=== PATIENT | male | born 1965 | race Caucasian/White ===

== ENCOUNTER 2021-05-30 04:51 | Emergency (ER) | payer OTHER, SELFPAY ==
--- NOTE | ~2021-05-30 | XR_ITS ---
EXAMINATION: XR CHEST CLINICAL INFORMATION: Productive cough COMPARISON: 04/04/2019 TECHNIQUE: Frontal view of the chest was obtained. FINDINGS: Normal symmetric lung volumes. No parenchymal consolidation. No pleural effusion. No pneumothorax. Cardiomediastinal silhouette and pulmonary vascularity are within normal limits. Aorta is atherosclerotic. No acute osseous abnormalities. XR/XR chest 1V IMPRESSION: No focal consolidation.
[2021-05-30 05:05] VITALS: BP 149/80; PULSE 95; RESP 20; TEMP 36.8; O2SAT 95; BMI 36.6
--- NOTE | 2021-05-30 06:29 | ED_ITS ---
HPI - SOB/Dyspnea General Chief Complaint: Dyspnea Stated Complaint: Asthma Time Seen by Provider: 05/30/21 05:47 Source: patient Mode of arrival: ambulatory Limitations: no limitations History of Present Illness HPI Narrative: 55-year-old male who presents emergency department for evaluation of shortness of breath and cough. Patient states he has been short of breath for 2 days. He has also had mild dyspnea on exertion. States has a cough which is productive of thick, green phlegm. He denied fever, chills, chest pain. He states that he is feeling fatigued knee does have diffuse myalgias. Denied loss of sense of taste or smell or diarrhea. The patient did get a COVID-19 vaccination with his 2nd vaccination given 1 month prior. He does not recall which brand a vaccination he received. Patient states that the does have asthma but does not have an albuterol inhaler. He continues to smoke 1/2 pack of cigarettes per day. He is in a methadone clinic for heroin use disorder, he denies any recent heroin use. Related Data Previous Rx's Medication Instructions Recorded albuterol sulfate 90 mcg/actuation 2 puff INHALATION Q4-6H PRN #8.5 g 05/30/21 aerosol inhaler azithromycin 250 mg tablet See Rx Instructions .ROUTE 05/30/21 (Zithromax Z-Santos) .COMPLEX #6 tab prednisone 20 mg tablet 60 mg PO DAILY 5 Days #15 tab 05/30/21 Allergies Allergy/AdvReac Type Severity Reaction Status Date / Time No Known Allergies Allergy Unverified 07/09/20 15:37 [No Known Allergies*] Review of Systems Review of Systems: Yes all other systems are reviewed and are negative [facility] Past Medical History [facility] Narrative: Past medical history: Asthma. Past surgical history: None. Social history: The patient smokes 1/2 pack of cigarettes per day times 20 years. He states that he occasionally drinks alcohol. The patient is currently in a methadone program for heroin use disorder. He cannot recall when he last used heroin. Social History Social History Alcohol intake: unknown Patient Tobacco Use Status: Tobacco use Unknown Use of substances other than those prescribed or required for medical reasons: No Advance Directives: No Advance Directives Information Provided: Yes Physical Exam Vital Signs: Vital Signs: Last Vital Signs Temp 98.3 F 05/30/21 05:05 Pulse 95 05/30/21 05:05 Resp 20 05/30/21 05:05 BP 149/80 H 05/30/21 05:05 Pulse Ox 95 05/30/21 05:05 Body Mass Index 36.6 Const: General: cooperative and no acute distress Orientation/consciousness: oriented to person and oriented to place Limitations: no limitations HENMT: Head: Yes normal to inspection, Yes normocephalic and Yes atraumatic Ears: external ears normal General nose exam: Normal external nose present Face and sinus: Yes normal facial exam Mouth: Normal oral and palatal mucosa present Throat: Yes posterior oropharynx normal Eyes: General: appearance normal, both eyes and all related structures Pupils: Equal, round and reactive pupils present Neck: Neck: Yes normal visual inspection, Yes no lymphadenopathy, Yes trachea midline and Yes supple Chest: Chest palpation & inspection: normal inspection of the chest and normal palpation of entire chest wall Resp: Effort & Inspection: normal respiratory effort and able to speak in complete sentences Auscultation: wheezes scattered wheezes Cardio: Rate: regular rate Rhythm: regular rhythm Heart sounds: S1 normal heart sound present, S2 normal heart sound present and no murmurs GI: Inspection: Yes normal to inspection Palpation (GI): Soft to palpation, nontender and no guarding Auscultation: normal bowel sounds : General: Yes no CVA tenderness Back/Spine/Pelvis: Back: no CVA tenderness Skin: General skin exam: no rashes or lesions noted Neuro: General: oriented to person and oriented to place Cranial nerves: Yes CN's II-XII intact bilaterally and Yes Equal, round and reactive pupils present Cognition (Neuro): normal cognition Motor exam (neuro): 5/5 motor strength present throughout Extrem: General: Yes normal to inspection Psych: Appearance: grossly normal Speech and movement: Normal speech and movement present Affect: normal affect Attitude: cooperative Thought process: Normal thought process present Thought content: Normal thought content present Course Course Course Narrative: 55-year-old male with history of asthma and tobacco use disorder who presents emergency department for evaluation of shortness of breath x2 days and a productive cough. Vital signs revealed slight elevation is blood pressure of 149/80 otherwise were unremarkable. Lung exam did reveal scattered wheezing. Chest x-ray was reviewed by me, I do not see any clear pneumonia or pneumothorax. The patient's COVID-19, influenza and RSV tests were negative. presentation is consistent with acute bronchitis. Given the fact the patient has a smoker and asthmatic, I will treat the patient with antibiotics. The patient was prescribed Zithromax Z-Santos. He is also given a prescription for prednisone 60 mg once a day for 5 days. Patient will insert also prescribed albuterol inhaler 2 puffs every 4 hours as needed for shortness of breath and wheezing. The patient was given verbal and printed instructions prior to discharge. The patient was advised to follow-up with his PCP in 2 days and to return to the emergency department if his symptoms get worse or if he develops any new symptoms that are concerning to him. MDM - SOB/Dyspnea Lab Data Labs: Lab Results 05/30/21 Range/Units 06:20 Coronavirus (PCR) NEGATIVE (Negative) Influenza Type A (PCR) NEGATIVE (Negative) Influenza Type B (PCR) NEGATIVE (Negative) RSV RNA Qual (PCR) NEGATIVE (Negative) Discharge Plan Discharge Clinical Impression: Bronchitis Asthma with exacerbation Qualifiers: Asthma severity: moderate Asthma persistence: persistent Qualified Code(s): J45.41 - Moderate persistent asthma with (acute) exacerbation Patient Disposition: Home, Self-Care Instructions: Acute Bronchitis (ED) Additional Instructions: Your chest x-ray was unremarkable. Your COVID-19, influenza and RSV tests were negative, this is reassuring. Your symptoms are consistent with bronchitis which is infection and inflammation of your breathing tubes. Use the albuterol inhaler 2 puffs every 4 hours as needed for wheezing and shortness of breath. Take prednisone 20 mg pills, 3 pills once a day for 5 days. Take Zithromax (azithromycin) Z-Santos as prescribed. Follow-up with your doctor in 2 days. Please return to the emergency department if your symptoms get worse or if you develop any symptoms that are concerning to you. Prescriptions: New albuterol sulfate 90 mcg/actuation HFA aerosol inhaler 2 puff inhalation Q4-6H PRN (Reason: shortness of breath or wheezing) Qty: 8.5 RF: 0 azithromycin [Zithromax Z-Santos] 250 mg tablet See Rx Instructions .ROUTE .COMPLEX Qty: 6 RF: 0 prednisone 20 mg tablet 60 mg PO DAILY 5 Days Qty: 15 RF: 0
[2021-05-30 07:03] LABS: Influenza A PCR NEGATIVE (Negative); Influenza B PCR NEGATIVE (Negative); Resp Syncy Virus RNA Qual PCR NEGATIVE (Negative); SARS COV2 PCR INHOUSE NEGATIVE (Negative)
== END 2021-05-30 09:58 | disposition home or self-care (01) ==
PROVIDERS: Emergency Provider Emergency Medicine Emergency Medical Services; PCP Nurse Practitioner Family
DX: J45.41 Moderate persistent asthma with (acute) exacerbation (principal); Z20.822 Contact with and (suspected) exposure to COVID-19; R06.02 Shortness of breath; F17.210 Nicotine dependence, cigarettes, uncomplicated; F11.20 Opioid dependence, uncomplicated
CPT/HCPCS: 0241U; 36415; 71045; 99283; 99284

== ENCOUNTER 2021-10-11 03:00 | Emergency (ER) | payer MEDICARE, MEDICAID, SELFPAY ==
--- NOTE | ~2021-10-11 | XR_ITS ---
EXAMINATION: XR CHEST CLINICAL INFORMATION: Shortness of breath COMPARISON: 05/30/2021 TECHNIQUE: 2 views of the chest were obtained. FINDINGS: The lungs are well expanded. There is no focal consolidation, edema, or effusion. No pneumothorax. The cardiomediastinal silhouette is within normal limits. No acute osseous abnormality. Bilateral nipple shadows are noted. XR/XR chest 2V IMPRESSION: Clear lungs.
[2021-10-11 03:18] VITALS: BP 134/85; PULSE 93; RESP 20; TEMP 36.3; O2SAT 97; BMI 23.6
--- NOTE | 2021-10-11 07:16 | ED_ITS ---
HPI - URI/Sore Throat General Chief Complaint: Upper Respiratory Symptoms Stated Complaint: SoB, trouble breathing Time Seen by Provider: 10/11/21 07:16 Source: patient Mode of arrival: ambulatory Limitations: no limitations History of Present Illness MD elicited complaint: cough Pertinent past history: asthma Onset (ago): week(s) (1) Consistency: intermittent Severity: moderate Description of mucous: yellow Able to tolerate fluids by mouth: Yes Exacerbating factors: nothing Associated symptoms: cough Treatments prior to arrival: none Related Data Previous Rx's Medication Instructions Recorded albuterol sulfate 90 mcg/actuation 2 puff INHALATION Q4-6H PRN #8.5 g 05/30/21 aerosol inhaler azithromycin 250 mg tablet See Rx Instructions .ROUTE 05/30/21 (Zithromax Z-Santos) .COMPLEX #6 tab prednisone 20 mg tablet 60 mg PO DAILY 5 Days #15 tab 05/30/21 albuterol sulfate 90 mcg/actuation 1 inh INHALATION QID PRN #8.5 g 10/11/21 aerosol inhaler (Ventolin HFA) azithromycin 250 mg tablet 250 mg PO DAILY 4 Days #4 tab 10/11/21 prednisone 20 mg tablet 60 mg PO DAILY 4 Days #12 tab 10/11/21 Allergies Allergy/AdvReac Type Severity Reaction Status Date / Time No Known Allergies Allergy Unverified 07/09/20 15:37 [No Known Allergies*] Review of Systems Review of Systems: Constitutional : No Fever, No Chills ENT/Mouth : No Hoarseness, No sore throat, No Rhinorrhea Eyes: No Redness, No Discharge, No Vision Changes Cardiovascular : No Chest Pain, positive SOB, no Dyspnea on Exertion, No Edema Respiratory : positive Cough, pos Sputum, positive Wheezing, Gastrointestinal : No Nausea, No Vomiting, No Diarrhea, No abdominal Pain Genitourinary : No Dysuria, No Hematuria Musculoskeletal : No joint pain, No Myalgias Skin : No rash Neuro : No Weakness, No Numbness, No Headache Psych : No anxiety, depression Heme/Lymph: No Bruising, No Bleeding Endocrine : No Polyuria, No Polydipsia All other systems reviewed and are negative REPLACED BY [facility] Past Medical History Attestation statement: The following information was validated with the patient. Medical History Asthma Social History Social History Alcohol intake: unknown Patient Tobacco Use Status: Current everyday Tobacco user Advance Directives: No Advance Directives Information Provided: Yes Physical Exam Vital Signs: Vital Signs: Last Vital Signs Temp 97.3 F 10/11/21 03:18 Pulse 93 10/11/21 07:42 Resp 14 10/11/21 07:42 BP 134/85 10/11/21 03:18 Pulse Ox 97 10/11/21 03:18 BMI result Body Mass Index 23.6 Appearance: Alert. Oriented X3. No acute distress. Eyes: Pupils equal, round and reactive to light. ENT: Pharynx normal. Neck: Normal inspection. Neck supple. CVS: Normal heart rate and rhythm. Pulses normal. Respiratory: No respiratory distress. Breath sounds diffuse mild end exp wheezes throughout Abdomen: Soft and nontender. Skin: Skin warm and dry. Normal skin color. Normal skin turgor. Extremities: No lower extremity edema. No calf ttp Neuro: Oriented X 3. No motor deficit. No sensory deficit. Course Course Course Narrative: feels bettery stable for DC, easily woken has INH in his hand MDM - URI/Sore Throat MDM Narrative Medical decision making narrative: 56 yo male with asthma and smoker reports productive cough x 1 week - he is not vaccinated at this time CXR and COVID swab ordered. He does not have inhaler either. Will obtain COVID swab, CXR, order INH steroids and start on azithromycin for bronchitis. Dispo per results and findings. Lab Data Labs: Lab Results 10/11/21 Range/Units 07:40 COVID-19 ([facility]) Negative (Negative) COVID-19 Clin Com See Note Discharge Plan Discharge Clinical Impression: Bronchitis Patient Disposition: Home, Self-Care Instructions: Acute Bronchitis (ED) Additional Instructions: return to ED for any worsening symptoms or concerns NEGATIVE COVID Prescriptions: New prednisone 20 mg tablet 60 mg PO DAILY 4 Days Qty: 12 RF: 0 albuterol sulfate [Ventolin HFA] 90 mcg/actuation HFA aerosol inhaler 1 inh inhalation QID PRN (Reason: shortness of breath or wheezing) Qty: 8.5 RF: 1 azithromycin 250 mg tablet 250 mg PO DAILY 4 Days Qty: 4 RF: 0 No Action albuterol sulfate 90 mcg/actuation HFA aerosol inhaler 2 puff inhalation Q4-6H PRN (Reason: shortness of breath or wheezing) Qty: 8.5 RF: 0 azithromycin [Zithromax Z-Santos] 250 mg tablet See Rx Instructions .ROUTE .COMPLEX Qty: 6 RF: 0 prednisone 20 mg tablet 60 mg PO DAILY 5 Days Qty: 15 RF: 0 Referrals: Physician,Unknown J [Primary Care Provider] - 2 days (if not better) Stand Alone Forms: Work/School Release
[2021-10-11] MEDS: Albuterol Sulfate 90 MCG 8 GM INHALER 2 PUFF INHALE (07:39)
[2021-10-11] MEDS: predniSONE 20 MG TABLET 60 MG PO (07:41)
[2021-10-11] MEDS: Azithromycin 500 MG TABLET PO (07:41)
[2021-10-11 07:42] VITALS: PULSE 93; RESP 14; O2SAT 97
[2021-10-11 08:16] LABS: COVID-19 Test Negative (Negative); IDNOW Serial# 08D9AD1C
== END 2021-10-11 08:28 | disposition home or self-care (01) ==
PROVIDERS: Emergency Provider Emergency Medicine
DX: J40 Bronchitis, not specified as acute or chronic (principal); Z20.822 Contact with and (suspected) exposure to COVID-19
CPT/HCPCS: 36415; 71046; 87635; 94640; 99283; 99284

== ENCOUNTER 2023-03-16 11:59 | Outpatient (RCR) | payer MEDICARE, MEDICAID, SELFPAY | END 2023-05-26 14:11 | disposition home or self-care (01) | LOC: HO.WCC 11:59 | PROVIDERS: PCP Nurse Practitioner Family; Visit Provider Surgery | DX: Z09 Encounter for follow-up examination after completed treatment for conditions other than malignant neoplasm (principal); I87.302 Chronic venous hypertension (idiopathic) without complications of left lower extremity; I73.89 Other specified peripheral vascular diseases; Z87.2 Personal history of diseases of the skin and subcutaneous tissue | CPT/HCPCS: 11042; 11043; 99212 ==

== ENCOUNTER 2024-01-11 11:09 | Emergency (ER) | payer OTHER, SELFPAY ==
--- NOTE | ~2024-01-11 | XR_ITS ---
EXAMINATION: XR CHEST CLINICAL INFORMATION: Coughing up blood COMPARISON: Prior chest September 2021. TECHNIQUE: Frontal view of the chest was obtained. FINDINGS: There is a 2 mm rounded nodular density at the peripheral aspect of the lower lung which is unchanged dating back to 2019. Lungs otherwise clear. Cardiomediastinal silhouette normal. Bone and soft tissues unremarkable. XR/XR chest 1V IMPRESSION: 1. No acute disease. 2. Stable 2 mm nodular density in the lower lung unchanged dating back to 2019 compatible with a benign nodule, possibly granuloma.
[2024-01-11 11:24] VITALS: BP 118/69; PULSE 77; RESP 17; TEMP 36.7; O2SAT 96; BMI 29.0
--- NOTE | 2024-01-11 11:25 | ED.GENADULT ---
HPI - General Adult General Chief complaint: General Medical Stated complaint: vomiting Time Seen by Provider: 01/11/24 12:56 Source: patient Mode of arrival: ambulatory Limitations: no limitations History of Present Illness HPI narrative: This is a 58-year-old male presenting with fatigue, malaise, wheezing, cough for the past few days, spit up blood this morning which made him nervous and prompted him to come in today. He reports it was just blood-tinged sputum, no blood clots, now large amount of blood, it was not hematemesis it was blood in sputum. Patient reports he is slightly short of breath from the coughing. Reports associated fatigue, malaise and myalgias. No chest pain, nausea, vomiting, abdominal pain, blood in stool, diarrhea, urinary changes, headache, vision changes, dizziness or weakness. Related Data Previous Rx's Medication Instructions Recorded albuterol sulfate 90 mcg/actuation 2 puff inhalation Q4-6H PRN 05/30/21 aerosol inhaler shortness of breath or wheezing #8.5 grams azithromycin 250 mg tablet See Rx Instructions PO .COMPLEX #6 05/30/21 (Zithromax Z-Santos) tabs prednisone 20 mg tablet 60 mg (3 x 20 mg) PO DAILY 5 days 05/30/21 #15 tabs albuterol sulfate 90 mcg/actuation 1 inh inhalation QID PRN shortness 10/11/21 aerosol inhaler (Ventolin HFA) of breath or wheezing #8.5 grams azithromycin 250 mg tablet 250 mg PO DAILY 4 days #4 tabs 10/11/21 prednisone 20 mg tablet 60 mg (3 x 20 mg) PO DAILY 4 days 10/11/21 #12 tabs acetaminophen 325 mg capsule 325 mg PO Q4H PRN pain #30 caps 01/11/24 (Tylenol) albuterol sulfate 90 mcg/actuation 2 inh inhalation Q4-6H PRN 01/11/24 breath activated powder inhaler shortness of breath or wheezing #1 ea prednisone 20 mg tablet 40 mg (2 x 20 mg) PO DAILY 5 days 01/11/24 #10 tabs Allergies Allergy/AdvReac Type Severity Reaction Status Date / Time No Known Allergies Allergy Verified 01/11/24 11:24 [No Known Allergies*] Review of Systems Review of Systems: Yes all other systems are reviewed and are negative PMFSH Past Medical History Attestation statement: The following information was validated with the patient. Source: old records reviewed and nursing notes reviewed Medical History Asthma Social History Social History Alcohol intake: unknown Patient Tobacco Use Status: Current everyday Tobacco user Smoked in Last 30 Days: Yes Use of substances other than those prescribed or required for medical reasons: No Advance Directives: No Physical Exam ED Vital Signs: Vital Signs - 24 hr 01/11/24 11:24 01/11/24 13:01 Temperature 98.0 F 98.1 F Pulse Rate 77 88 Respiratory Rate 17 18 Blood Pressure 118/69 126/70 Pulse Oximetry 96 97 Oxygen Delivery Method Room Air Room Air BMI result Body Mass Index 29.0 vss Appearance: Alert.? Oriented X3.? No acute distress.? Head: Normocephalic, atraumatic, no step-offs or deformities Eyes: Pupils equal, round and reactive to light.? ENT: Pharynx normal.? Neck: Normal inspection.? Neck supple.? CVS: Normal heart rate and rhythm.? Pulses normal.? Respiratory: No respiratory distress.? Breath sounds with mild expiratory wheezing.? Abdomen: Soft and nontender.? Skin: Skin warm and dry.? Normal skin color.? Normal skin turgor.? Extremities: No lower extremity edema.? No calf ttp. 5/5 strength to bilateral upper and lower extremities Neuro: Oriented X 3.? No motor deficit.? No sensory deficit. CN 2-12 intact Course Course Course Narrative: This is an RME: Additional HPI, ROS, PE not included below will be deferred to primary provider. 58 yo m hx asthma presents w/ blood tinged sputum since this am he reports hes intermittently coughing also reports sore throat Plan- labs, viral test, cxr Reevaluation(s) Reevaluation #1: CBC unremarkable. Normocytic baseline anemia. Chemistry no acute findings requiring intervention. Normal coags. trop CXR pending Time: 12:50 Reevaluation #2: Covid + Time: 12:59 Reevaluation #3: Troponin negative, chest x-ray unremarkable. Medical Decision Making Medical Decision Making MDM Narrative: 1257 58 yo m hx asthma presents w/ blood tinged sputum since this am he reports hes intermittently coughing also reports sore throat, fatigue, malaise and myalgias PE mild b/l expiratory wheezing Blood-tinged sputum likely secondary to cough/bronchitis versus viral illness. Unlikely upper GI bleed. Unlikely acute blood loss anemia no signs of hemodynamic instability. Will rule out flu COVID RSV. Unlikely pneumonia, PE, ACS. Plan at this time basic labs, coags, x-ray, viral testing Differential Diagnosis Differential Diagnoses: The differential diagnosis associated with the presentation includes Blood-tinged sputum likely secondary to cough/bronchitis versus viral illness. Unlikely upper GI bleed. Unlikely acute blood loss anemia no signs of hemodynamic instability. Will rule out flu COVID RSV. Unlikely pneumonia, PE, ACS. Admission/Observation Consideration of admission/observation: Escalation of care including admission/observation considered Unlikely Lab Data MDM Lab Attestation statement: I reviewed the patient's lab results. 01/11/24 11:36 01/11/24 11:36 Labs: Lab Results 01/11/24 Range/Units 11:36 WBC 6.4 (4.8-10.8) X10*3/uL RBC 4.30 L (4.60-5.80) X10*6/uL Hgb 12.8 L (14.0-18.0) g/dl Hct 38.2 L (42.0-52.0) % MCV 88.8 (80.0-98.0) fL MCH 29.8 (27.0-33.0) pg MCHC 33.5 (31.0-36.0) g/dl RDW 12.7 (11.0-16.0) % Plt Count 216 (160-400) X10*3/uL MPV 9.3 L (9.4-12.4) fL Immature Gran % (Auto) 0.5 H (0.0-0.4) % Neut % (Auto) 59.4 (45-73) % Lymph % (Auto) 27.9 (20-40) % [place] % (Auto) 7.5 (2-11) % Eos % (Auto) 4.2 H (0-4) % Baso % (Auto) 0.5 (0-2) % Lymph # (Auto) 1.8 (1.2-4.9) X10*3/uL [place] # (Auto) 0.5 (0.1-1.2) X10*3/uL Eos # (Auto) 0.3 (0.0-0.4) X10*3/uL Baso # (Auto) 0.0 (0.0-0.2) X10*3/uL Abs Immat Gran (auto) 0.03 (0.00-0.03) X10*3/uL Absolute Neuts (auto) 3.8 (2.0-8.3) x10*3/uL Absolute Nucleated RBC 0.000 (0.0-0.012) X10*3/uL Nucleated RBC % (auto) 0.0 (0.0-0.2) /100WBC PT 10.5 L (11.1-13.3) SEC INR 0.9 (0.9-1.1) Sodium 141 (135-145) mmol/L Potassium 4.3 (3.3-5.1) mmol/L Chloride 105 (96-108) mmol/L Carbon Dioxide 29 (22-29) mmol/L Anion Gap 11 L (12-20) BUN 16 (9-16) mg/dL Creatinine 0.82 (0.5-1.4) mg/dL Estim Creat Clear Calc 96.2 Estimated GFR > 60 Random Glucose 95 (60-115) mg/dL Calcium 9.3 (8.4-10.2) mg/dL Total Bilirubin 0.2 (0.0-1.0) mg/dL AST 26 (5-37) U/L ALT 29 (0-40) U/L Alkaline Phosphatase 86 (39-117) U/L Troponin I High Sens < 2.7 (<3.5-35.0) ng/L Total Protein 7.5 (6.5-8.0) g/dL Albumin 4.1 (3.5-5.0) g/dL Influenza Type A (PCR) NEGATIVE (Negative) Influenza Type B (PCR) NEGATIVE (Negative) RSV RNA Qual (PCR) NEGATIVE (Negative) SARS-CoV-2 RNA (RT-PCR) POSITIVE A (Negative) S. pyogenes GrpA [place] Negative (Negative) Independent Interpretation I performed an independent interpretation of an: Plain X-Ray Radiology Impression Discussion of test interpretation with radiology: I have reviewed the radiologist's reading. Prescription Management I considered prescription management with: Other (tylenol ) Chronic Conditions Patient?s care impacted by: Other (obesity ) Critical Care Time Critical Care Time Critical Care Time: No Discharge Plan Discharge Clinical Impression: COVID-19, Blood-tinged sputum Patient Disposition: Home, Self-Care Instructions: COVID-19 (Coronavirus Disease 2019) (ED) Additional Instructions: Take your medications as prescribed. If you were prescribed antibiotics today, it is important that you take your medication to their entirety, do not skip any doses, do not finish them early. Today you tested positive for COVID-19. Take Ibuprofen or Tylenol as needed for fevers or body aches. Quarantine for 5 days and ensure you wear a mask. After 5 days you should wear a mask for 5 days after that. Practice social distancing and good hand hygiene. Drink plenty of fluids. Follow-up with your primary care provider this week. Return to the emergency department with new or worsening symptoms. In case of emergency call 911 You can purchase a pulse oximeter from your local pharmacy or grocery store, and monitor your oxygen saturation if it goes below 94% you should return to the emergency department for further evaluation. XR/XR chest 1V IMPRESSION: 1. No acute disease. 2. Stable 2 mm nodular density in the lower lung unchanged dating back to 2019 compatible with a benign nodule, possibly granuloma. Prescriptions: New acetaminophen [Tylenol] 325 mg capsule 325 mg PO Q4H PRN (Reason: pain) Qty: 30 0RF prednisone 20 mg tablet 40 mg PO DAILY 5 Days Qty: 10 0RF albuterol sulfate 90 mcg/actuation aerosol powdr breath activated 2 inh inhalation Q4-6H PRN (Reason: shortness of breath or wheezing) Qty: 1 0RF No Action albuterol sulfate 90 mcg/actuation HFA aerosol inhaler 2 puff inhalation Q4-6H PRN (Reason: shortness of breath or wheezing) Qty: 8.5 0RF azithromycin [Zithromax Z-Santos] 250 mg tablet See Rx Instructions .ROUTE .COMPLEX Qty: 6 0RF Rx Instructions: take 500 mg today (day 1), then 250 mg for 4 days (days 2-5) prednisone 20 mg tablet 60 mg PO DAILY 5 Days Qty: 15 0RF prednisone 20 mg tablet 60 mg PO DAILY 4 Days Qty: 12 0RF albuterol sulfate [Ventolin HFA] 90 mcg/actuation HFA aerosol inhaler 1 inh inhalation QID PRN (Reason: shortness of breath or wheezing) Qty: 8.5 1RF azithromycin 250 mg tablet 250 mg PO DAILY 4 Days Qty: 4 0RF Rx Instructions: start on day 2 of therapy Referrals: Flor Rowe [employer] [Primary Care Provider] - 2 days Stand Alone Forms: Work/School Release
[2024-01-11 11:45] LABS: MANUAL DIFF FLAG NO
[2024-01-11 11:51] LABS: Basophils Percent Auto 0.5 % (0-2); Eosinophils Absolute Auto 0.3 X10*3/uL (0.0-0.4); Eosinophils Percent Auto 4.2 % (0-4); Hematocrit 38.2 % (42.0-52.0); Hemoglobin 12.8 g/dl (14.0-18.0); Imm Gran Abs Auto 0.03 X10*3/uL (0.00-0.03); Imm Gran Pct Auto 0.5 % (0.0-0.4); Lymphocytes Absolute Auto 1.8 X10*3/uL (1.2-4.9); Lymphocytes Percent Auto 27.9 % (20-40); Mean Corpuscular HGB Conc 33.5 g/dl (31.0-36.0); Mean Corpuscular Hemoglobin 29.8 pg (27.0-33.0); Mean Corpuscular Volume 88.8 fL (80.0-98.0); Mean Platelet Volume 9.3 fL (9.4-12.4); Monocytes Absolute Auto 0.5 X10*3/uL (0.1-1.2); Monocytes Percent Auto 7.5 % (2-11); Neutrophils Absolute Auto 3.8 x10*3/uL (2.0-8.3); Neutrophils Percent Auto 59.4 % (45-73); Platelet Count 216 X10*3/uL (160-400); Red Cell Distribution Width 12.7 % (11.0-16.0); White Blood Count 6.4 X10*3/uL (4.8-10.8)
[2024-01-11 11:58] LABS: INTERNATIONAL NORM RATIO 0.9 (0.9-1.1); Prothrombin Time 10.5 SEC (11.1-13.3)
[2024-01-11 11:59] LABS: IDNOW Serial# 08D9AD1C; Strep A Nucleic Acid Negative (Negative)
[2024-01-11 12:02] LABS: Alanine Aminotransferase 29 U/L (0-40); Albumin Level 4.1 g/dL (3.5-5.0); Alkaline Phosphatase 86 U/L (39-117); Anion Gap 11 (12-20); Aspartate Amino Transferase 26 U/L (5-37); Bilirubin Total 0.2 mg/dL (0.0-1.0); Blood Urea Nitrogen 16 mg/dL (9-16); Calcium 9.3 mg/dL (8.4-10.2); Carbon Dioxide 29 mmol/L (22-29); Chloride 105 mmol/L (96-108); Creatinine Clr Calc Pharmacy 96.2; Estimated Glomerular Filt Rate > 60; Glucose Random 95 mg/dL (60-115); Potassium 4.3 mmol/L (3.3-5.1); Sodium 141 mmol/L (135-145); Total Protein 7.5 g/dL (6.5-8.0)
[2024-01-11 12:27] LABS: Influenza A PCR NEGATIVE (Negative); Influenza B PCR NEGATIVE (Negative); Resp Syncy Virus RNA Qual PCR NEGATIVE (Negative); SARS COV2 PCR INHOUSE POSITIVE (Negative)
[2024-01-11 13:01] VITALS: BP 126/70; PULSE 88; RESP 18; TEMP 36.7; O2SAT 97
[2024-01-11 13:48] LABS: Troponin-I High Sensitivity < 2.7 ng/L (<3.5-35.0)
== END 2024-01-12 20:33 | disposition home or self-care (01) ==
PROVIDERS: Physician Assistant; Emergency Provider Emergency Medicine; PCP Nurse Practitioner Family
DX: U07.1 COVID-19 (principal); R11.10 Vomiting, unspecified; R05.9 Cough, unspecified; Z79.899 Other long term (current) drug therapy
CPT/HCPCS: 0241U; 36415; 71045; 80053; 84484; 85025; 85610; 87651; 99283; 99284

== ENCOUNTER 2024-02-11 08:58 | Emergency (ER) | payer OTHER, SELFPAY ==
--- NOTE | ~2024-02-11 | XR_ITS ---
EXAMINATION: XR chest 2V CLINICAL INFORMATION: Reason for Exam SOB, repeat CXR w/ nipple markers COMPARISON: Prior chest x-ray same day earlier. TECHNIQUE: XR chest 2V, 2 Views Lungs and [place]: Both lungs are clear. Density projecting over the left hemithorax correlate with nipple marker. Nipple shadow. Pleura: Normal. Costophrenic angles are sharp. No pneumothorax. Heart: The heart is normal in size. Mediastinum: The mediastinum is within normal limits.. Bones: Skeletal structures included are normal for patient's age. XR/XR chest 2V IMPRESSION: 1. No radiographic evidence of acute cardiopulmonary disease. 2. Density projecting over the left hemithorax correlate with nipple marker, nipple shadow..
--- NOTE | ~2024-02-11 | XR_ITS ---
EXAMINATION: XR chest 2V CLINICAL INFORMATION: Reason for Exam dyspnea COMPARISON: No prior chest x-ray available in our system for comparison at the time of this dictation. TECHNIQUE: XR chest 2V, 2 Views Lungs and [place]: Small round density projecting over the left lower lobe possibly lung nodule versus nipple shadow. Lungs otherwise are clear. Pleura: Normal. Costophrenic angles are sharp. No pneumothorax. Heart: The heart is normal in size. Mediastinum: The mediastinum is within normal limits.. Bones: Skeletal structures included are normal for patient's age. XR/XR chest 2V IMPRESSION: Small round density projecting over the left lower lobe could be a lung nodule versus nipple shadow. Consider correlation with follow-up chest x-ray with nipple markers.
[2024-02-11 09:00] VITALS: BP 143/86; PULSE 96; RESP 17; TEMP 36.6; O2SAT 98; BMI 31.6
--- NOTE | 2024-02-11 09:24 | ED_ITS ---
HPI - URI/Sore Throat General Chief Complaint: Upper Respiratory Symptoms Stated Complaint: Diff breathing Time Seen by Provider: 02/11/24 09:10 Related Data Previous Rx's ?Medication ?Instructions ?Recorded albuterol sulfate 90 mcg/actuation 2 puff inhalation Q4-6H PRN 05/30/21 aerosol inhaler shortness of breath or wheezing #8.5 grams azithromycin 250 mg tablet See Rx Instructions PO .COMPLEX #6 05/30/21 (Zithromax Z-Santos) tabs prednisone 20 mg tablet 60 mg (3 x 20 mg) PO DAILY 5 days 05/30/21 #15 tabs albuterol sulfate 90 mcg/actuation 1 inh inhalation QID PRN shortness 10/11/21 aerosol inhaler (Ventolin HFA) of breath or wheezing #8.5 grams azithromycin 250 mg tablet 250 mg PO DAILY 4 days #4 tabs 10/11/21 prednisone 20 mg tablet 60 mg (3 x 20 mg) PO DAILY 4 days 10/11/21 #12 tabs acetaminophen 325 mg capsule 325 mg PO Q4H PRN pain #30 caps 01/11/24 (Tylenol) albuterol sulfate 90 mcg/actuation 2 inh inhalation Q4-6H PRN 01/11/24 breath activated powder inhaler shortness of breath or wheezing #1 ea prednisone 20 mg tablet 40 mg (2 x 20 mg) PO DAILY 5 days 01/11/24 #10 tabs Allergies Allergy/AdvReac Type Severity Reaction Status Date / Time No Known Allergies Allergy Verified 02/11/24 09:01 [No Known Allergies*] PMFSH Past Medical History Medical History Asthma Social History Social History Alcohol intake: unknown Patient Tobacco Use Status: Current everyday Tobacco user Advance Directives: No Advance Directives Information Provided: No Physical Exam 2 Vital Signs: Vital Signs: Last Vital Signs Temp 98 F 02/11/24 09:00 Pulse 96 02/11/24 09:00 Resp 17 02/11/24 09:00 BP 143/86 H 02/11/24 09:00 Pulse Ox 98 02/11/24 09:00 O2 Del Method Room Air 02/11/24 09:00 BMI result Body Mass Index 31.6 Medications Administered Discontinued Medications Generic Name Dose Route Start Last Admin Trade Name Dayan PRN Reason Stop Dose Admin Dexamethasone Sodium Phosphate 10 mg 02/11/24 10:01 02/11/24 10:07 Dexamethasone Sod Phosphate 10 Mg/Ml Vial IVPUSH 02/11/24 10:02 10 mg ONCE ONE Administration Medical Decision Making Lab Data 02/11/24 09:31 02/11/24 09:31 Labs: Lab Results 02/11/24 02/11/24 Range/Units 09:14 09:31 WBC 8.1 (4.8-10.8) X10*3/uL RBC 4.43 L (4.60-5.80) X10*6/uL Hgb 13.2 L (14.0-18.0) g/dl Hct 39.6 L (42.0-52.0) % MCV 89.4 (80.0-98.0) fL MCH 29.8 (27.0-33.0) pg MCHC 33.3 (31.0-36.0) g/dl RDW 13.2 (11.0-16.0) % Plt Count 261 (160-400) X10*3/uL MPV 9.2 L (9.4-12.4) fL Immature Gran % (Auto) 0.2 (0.0-0.4) % Neut % (Auto) 69.2 (45-73) % Lymph % (Auto) 21.7 (20-40) % [place] % (Auto) 6.7 (2-11) % Eos % (Auto) 2.0 (0-4) % Baso % (Auto) 0.2 (0-2) % Lymph # (Auto) 1.8 (1.2-4.9) X10*3/uL [place] # (Auto) 0.5 (0.1-1.2) X10*3/uL Eos # (Auto) 0.2 (0.0-0.4) X10*3/uL Baso # (Auto) 0.0 (0.0-0.2) X10*3/uL Abs Immat Gran (auto) 0.02 (0.00-0.03) X10*3/uL Absolute Neuts (auto) 5.6 (2.0-8.3) x10*3/uL Absolute Nucleated RBC 0.000 (0.0-0.012) X10*3/uL Nucleated RBC % (auto) 0.0 (0.0-0.2) /100WBC Influenza Type A (PCR) NEGATIVE (Negative) Influenza Type B (PCR) NEGATIVE (Negative) RSV RNA Qual (PCR) NEGATIVE (Negative) SARS-CoV-2 RNA (RT-PCR) NEGATIVE (Negative) Discharge Plan Discharge Prescriptions: No Action albuterol sulfate 90 mcg/actuation HFA aerosol inhaler 2 puff inhalation Q4-6H PRN (Reason: shortness of breath or wheezing) Qty: 8.5 0RF azithromycin [Zithromax Z-Santos] 250 mg tablet See Rx Instructions .ROUTE .COMPLEX Qty: 6 0RF Rx Instructions: take 500 mg today (day 1), then 250 mg for 4 days (days 2-5) prednisone 20 mg tablet 60 mg PO DAILY 5 Days Qty: 15 0RF prednisone 20 mg tablet 60 mg PO DAILY 4 Days Qty: 12 0RF albuterol sulfate [Ventolin HFA] 90 mcg/actuation HFA aerosol inhaler 1 inh inhalation QID PRN (Reason: shortness of breath or wheezing) Qty: 8.5 1RF azithromycin 250 mg tablet 250 mg PO DAILY 4 Days Qty: 4 0RF Rx Instructions: start on day 2 of therapy acetaminophen [Tylenol] 325 mg capsule 325 mg PO Q4H PRN (Reason: pain) Qty: 30 0RF prednisone 20 mg tablet 40 mg PO DAILY 5 Days Qty: 10 0RF albuterol sulfate 90 mcg/actuation aerosol powdr breath activated 2 inh inhalation Q4-6H PRN (Reason: shortness of breath or wheezing) Qty: 1 0RF Print Language: Bengali
[2024-02-11 09:40] LABS: MANUAL DIFF FLAG NO
[2024-02-11 09:42] LABS: Basophils Percent Auto 0.2 % (0-2); Eosinophils Absolute Auto 0.2 X10*3/uL (0.0-0.4); Hematocrit 39.6 % (42.0-52.0); Hemoglobin 13.2 g/dl (14.0-18.0); Imm Gran Abs Auto 0.02 X10*3/uL (0.00-0.03); Imm Gran Pct Auto 0.2 % (0.0-0.4); Lymphocytes Absolute Auto 1.8 X10*3/uL (1.2-4.9); Lymphocytes Percent Auto 21.7 % (20-40); Mean Corpuscular HGB Conc 33.3 g/dl (31.0-36.0); Mean Corpuscular Hemoglobin 29.8 pg (27.0-33.0); Mean Corpuscular Volume 89.4 fL (80.0-98.0); Mean Platelet Volume 9.2 fL (9.4-12.4); Monocytes Absolute Auto 0.5 X10*3/uL (0.1-1.2); Monocytes Percent Auto 6.7 % (2-11); Neutrophils Absolute Auto 5.6 x10*3/uL (2.0-8.3); Neutrophils Percent Auto 69.2 % (45-73); Platelet Count 261 X10*3/uL (160-400); Red Blood Count 4.43 X10*6/uL (4.60-5.80); Red Cell Distribution Width 13.2 % (11.0-16.0); White Blood Count 8.1 X10*3/uL (4.8-10.8)
[2024-02-11 09:58] LABS: Influenza A PCR NEGATIVE (Negative); Influenza B PCR NEGATIVE (Negative); Resp Syncy Virus RNA Qual PCR NEGATIVE (Negative); SARS COV2 PCR INHOUSE NEGATIVE (Negative)
[2024-02-11] MEDS: dexAMETHasone sod phosphate 10 MG/ML VIAL IVPUSH (10:07)
--- NOTE | 2024-02-11 10:08 | PC.NURSE ---
medicated per MAR
--- NOTE | 2024-02-11 10:17 | ED_ITS ---
HPI - General Adult General Chief complaint: Upper Respiratory Symptoms Stated complaint: Diff breathing Time Seen by Provider: 02/11/24 09:10 Source: patient, RN notes reviewed and old records reviewed Mode of arrival: ambulatory Limitations: no limitations History of Present Illness HPI narrative: 58-year-old male with pmhx significant for asthma presents to the ED today for evaluation shortness of breath x2 days. States this feels like an asthma exacerbation. He admits he has not been using his albuterol inhaler at home. Denies known sick contacts. Denies recent travel or long car rides. Denies fever, chills, sore throat, cough, sputum production, chest pain, palpitations, N/V, calf pain/tenderness. Related Data Previous Rx's ?Medication ?Instructions ?Recorded albuterol sulfate 90 mcg/actuation 2 puff inhalation Q4-6H PRN 05/30/21 aerosol inhaler shortness of breath or wheezing #8.5 grams azithromycin 250 mg tablet See Rx Instructions PO .COMPLEX #6 05/30/21 (Zithromax Z-Santos) tabs prednisone 20 mg tablet 60 mg (3 x 20 mg) PO DAILY 5 days 05/30/21 #15 tabs albuterol sulfate 90 mcg/actuation 1 inh inhalation QID PRN shortness 10/11/21 aerosol inhaler (Ventolin HFA) of breath or wheezing #8.5 grams azithromycin 250 mg tablet 250 mg PO DAILY 4 days #4 tabs 10/11/21 prednisone 20 mg tablet 60 mg (3 x 20 mg) PO DAILY 4 days 10/11/21 #12 tabs acetaminophen 325 mg capsule 325 mg PO Q4H PRN pain #30 caps 01/11/24 (Tylenol) albuterol sulfate 90 mcg/actuation 2 inh inhalation Q4-6H PRN 01/11/24 breath activated powder inhaler shortness of breath or wheezing #1 ea prednisone 20 mg tablet 40 mg (2 x 20 mg) PO DAILY 5 days 01/11/24 #10 tabs albuterol sulfate 90 mcg/actuation 2 puff inhalation Q20M PRN 02/11/24 aerosol inhaler shortness of breath or wheezing #8.5 grams prednisone 50 mg tablet 50 mg PO DAILY 5 days #5 tabs 02/11/24 Allergies Allergy/AdvReac Type Severity Reaction Status Date / Time No Known Allergies Allergy Verified 02/11/24 09:01 [No Known Allergies*] Review of Systems 2 Review of Systems: Constitutional: No fever, chills, fatigue, night sweats, weight changes ENT/Mouth: No ear pain, hearing loss, nasal congestion, sinus pain, rhinorrhea, sore throat Eyes: No eye pain, swelling, redness, vision changes, discharge Cardio: No chest pain, palpitations, BROOKS, orthopnea, peripheral edema Pulm: [place], sputum, wheezing, dyspnea, hemoptysis, +SOB GI: No nausea, vomiting, hematemesis, abdominal pain, diarrhea, constipation, hematochezia, melena : No irregular bleeding, dysuria, frequency, urgency, hesitancy, hematuria, flank pain, urinary flow changes, urinary incontinence or retention MSK: No back pain, neck pain, joint pain, myalgias Skin: No lesions, rashes Neuro: No weakness, numbness, paresthesias, LOC, dizziness, headache Psych: No anxiety/panic, depression, SI/HI, AH/VH All other systems reviewed and are negative. [facility] Past Medical History Attestation statement: The following information was validated with the patient. Source: old records reviewed and nursing notes reviewed Medical History Asthma Social History Social History Alcohol intake: unknown Patient Tobacco Use Status: Current everyday Tobacco user Advance Directives: No Advance Directives Information Provided: No Physical Exam ED Vital Signs: Vital Signs - 24 hr 02/11/24 14:20 02/11/24 14:27 Temperature 98 F Pulse Rate 87 87 Respiratory Rate 18 Blood Pressure 146/76 H 146/76 H Pulse Oximetry 97 97 Oxygen Delivery Method Room Air Room Air BMI result Body Mass Index 31.6 Hypertensive, not hypoxic. Const General: cooperative, healthy appearing, comfortable and no acute distress Orientation/consciousness: patient oriented x3 Limitations: no limitations HENMT Head: Yes normal to inspection, Yes No palpable skull fracture present, Yes normocephalic and Yes atraumatic Eyes General: appearance normal, both eyes and all related structures Conjunctivae: conjunctivae normal Sclerae: sclerae normal Pupils: Equal, round and reactive pupils present Neck Neck: Yes normal visual inspection, Yes full ROM and Yes no lymphadenopathy Chest Chest palpation & inspection: normal inspection of the chest and normal palpation of entire chest wall Resp Other: No respiratory distress. No increased effort of breathing. No tripoding. No audible wheezes. No cough. Diminished breath sounds bilaterally with inspiratory wheezes noted to left lung. Effort & Inspection: normal respiratory effort and able to speak in complete sentences Cardio Jugular venous distension: no JVD Rate: regular rate Rhythm: regular rhythm Skin General skin exam: no rashes or lesions noted Neuro General: patient oriented x3 Cranial nerves: Yes Equal, round and reactive pupils present Extrem General: Yes no calf tenderness Course Course Course Narrative: 1105 -- CBC without leukocytosis or left shift. Chronic stable anemia when compared to priors. H&H stable. chemistry without acute electrolyte abnormality requiring intervention. magn wnl. He is tested negative for COVID, flu, RSV. chest xray without infiltrate or consolidation to suggest pneumonia. no bronchial wall thickening. there is question of nodule vs nipple shadow. radiologist recommending repeat cxr with nipple markers for clarification > ordered. discussed with patient who is agreeable. on re-evaluation, he reports improvement with RT breathing treatment and decadron. on exam, lungs are now cta b/l. no signs of respiratory distress. 1420-- repeat cxr with nipple markers reveal density correlating w/ nipple shadow. no sign of nodule. discussed results with patient. satting 97-98% on RA. no signs of distress. Patient has remained stable throughout ED visit today. Discussed worrisome signs and symptoms and when to return to the ED. All questions answered at this time. Patient is agreeable with disposition and stable for discharge. Medications Administered Discontinued Medications Generic Name Dose Route Start Last Admin Trade Name Freq PRN Reason Stop Dose Admin Albuterol Sulfate 2.5 mg/ 0 mg 02/11/24 10:27 02/11/24 10:29 Albuterol/Ipratropium 3 ml INHALE 02/11/24 10:28 5 dose ONCE ONE Administration Dexamethasone Sodium Phosphate 10 mg 02/11/24 10:01 02/11/24 10:07 Dexamethasone Sod Phosphate 10 Mg/Ml Vial IVPUSH 02/11/24 10:02 10 mg ONCE ONE Administration Medical Decision Making Medical Decision Making MDM Narrative: 58-year-old male with pmhx significant for asthma presents to the ED today for evaluation shortness of breath x2 days. Patient hypertensive to 143/86. Vitals otherwise WNL. Afebrile. Not hypoxic. He is nontoxic appearing in no acute distress. In no respiratory distress. No tripoding. No increased effort of breathing. Diminished breath sounds bilaterally with inspiratory wheezes noted to the left lung. No stridor. Airway patent. RRR. No calf tenderness bilaterally. Differential diagnosis includes asthma exacerbation, bronchitis, viral syndrome, pneumonia. Unlikely ACS, arrhythmia, pleural effusion, pericarditis. Plan for labs, viral serology, chest x-ray, breathing treatment, re-evaluation. Differential Diagnosis Differential Diagnoses: The differential diagnosis associated with the presentation includes As above Admission/Observation Not indicated Lab Data MDM Lab Attestation statement: I reviewed the patient's lab results. As above 02/11/24 09:31 02/11/24 09:31 Labs: Lab Results 02/11/24 02/11/24 Range/Units 09:14 09:31 WBC 8.1 (4.8-10.8) X10*3/uL RBC 4.43 L (4.60-5.80) X10*6/uL Hgb 13.2 L (14.0-18.0) g/dl Hct 39.6 L (42.0-52.0) % MCV 89.4 (80.0-98.0) fL MCH 29.8 (27.0-33.0) pg MCHC 33.3 (31.0-36.0) g/dl RDW 13.2 (11.0-16.0) % Plt Count 261 (160-400) X10*3/uL MPV 9.2 L (9.4-12.4) fL Immature Gran % (Auto) 0.2 (0.0-0.4) % Neut % (Auto) 69.2 (45-73) % Lymph % (Auto) 21.7 (20-40) % [place] % (Auto) 6.7 (2-11) % Eos % (Auto) 2.0 (0-4) % Baso % (Auto) 0.2 (0-2) % Lymph # (Auto) 1.8 (1.2-4.9) X10*3/uL [place] # (Auto) 0.5 (0.1-1.2) X10*3/uL Eos # (Auto) 0.2 (0.0-0.4) X10*3/uL Baso # (Auto) 0.0 (0.0-0.2) X10*3/uL Abs Immat Gran (auto) 0.02 (0.00-0.03) X10*3/uL Absolute Neuts (auto) 5.6 (2.0-8.3) x10*3/uL Absolute Nucleated RBC 0.000 (0.0-0.012) X10*3/uL Nucleated RBC % (auto) 0.0 (0.0-0.2) /100WBC Sodium 138 (135-145) mmol/L Potassium 3.8 (3.3-5.1) mmol/L Chloride 103 (96-108) mmol/L Carbon Dioxide 25 (22-29) mmol/L Anion Gap 14 (12-20) BUN 21 H (9-16) mg/dL Creatinine 0.91 (0.5-1.4) mg/dL Estim Creat Clear Calc 90.4 Estimated GFR > 60 Random Glucose 76 (60-115) mg/dL Calcium 9.4 (8.4-10.2) mg/dL Magnesium 2.3 (1.6-2.6) mg/dL Total Bilirubin 0.5 (0.0-1.0) mg/dL AST 94 H (5-37) U/L ALT 26 (0-40) U/L Alkaline Phosphatase 99 (39-117) U/L Total Protein 7.6 (6.5-8.0) g/dL Albumin 4.4 (3.5-5.0) g/dL Influenza Type A (PCR) NEGATIVE (Negative) Influenza Type B (PCR) NEGATIVE (Negative) RSV RNA Qual (PCR) NEGATIVE (Negative) SARS-CoV-2 RNA (RT-PCR) NEGATIVE (Negative) Independent Interpretation I performed an independent interpretation of an: Plain X-Ray Interpretation: Chest x-ray does not show infiltrate or consolidation, agree with radiologist's interpretation. Repeat chest xray without infiltrate or consolidation, agree with radiologist's interpretation. Radiology Impression Discussion of test interpretation with radiology: I have reviewed the radiologist's reading. Radiologist Impression: EXAMINATION: XR chest 2V CLINICAL INFORMATION: Reason for Exam dyspnea COMPARISON: No prior chest x-ray available in our system for comparison at the time of this dictation. TECHNIQUE: XR chest 2V, 2 Views Lungs and [place]: Small round density projecting over the left lower lobe possibly lung nodule versus nipple shadow. Lungs otherwise are clear. Pleura: Normal. Costophrenic angles are sharp. No pneumothorax. Heart: The heart is normal in size. Mediastinum: The mediastinum is within normal limits.. Bones: Skeletal structures included are normal for patient's age. XR/XR chest 2V IMPRESSION: Small round density projecting over the left lower lobe could be a lung nodule versus nipple shadow. Consider correlation with follow-up chest x-ray with nipple markers. EXAMINATION: XR chest 2V CLINICAL INFORMATION: Reason for Exam SOB, repeat CXR w/ nipple markers COMPARISON: Prior chest x-ray same day earlier. TECHNIQUE: XR chest 2V, 2 Views Lungs and [place]: Both lungs are clear. Density projecting over the left hemithorax correlate with nipple marker. Nipple shadow. Pleura: Normal. Costophrenic angles are sharp. No pneumothorax. Heart: The heart is normal in size. Mediastinum: The mediastinum is within normal limits.. Bones: Skeletal structures included are normal for patient's age. XR/XR chest 2V IMPRESSION: 1. No radiographic evidence of acute cardiopulmonary disease. 2. Density projecting over the left hemithorax correlate with nipple marker, nipple shadow.. External Record Review External record reviewed: Inpatient record, Office record, Outpatient record, Prior outpatient labs, Prior outpatient radiology, Primary care record and Outside ED record Prescription Management I considered prescription management with: Other (Prednisone, albuterol) Chronic Conditions Patient?s care impacted by: Other (Asthma) Social Determinants Patient?s care significantly limited by Social Determinants of Health including: Other Social Determinant of Health Critical Care Time Critical Care Time Critical Care Time: No Discharge Plan Discharge Clinical Impression: Asthma exacerbation Patient Disposition: Home, Self-Care Instructions: Prednisone (By mouth), Asthma (ED) Additional Instructions: You were evaluated in ED today or shortness of breath. You tested negative for COVID, flu, RSV. Your labs today are reassuring. Your chest x-ray does not show signs of pneumonia or fluid in your lungs. You were given a breathing treatment and a steroid with improvement. Prednisone as a steroid that has been sent to your pharmacy. Please take this over the next 5 days beginning tomorrow to help open up the airways. If you are diabetic, please monitor your sugars at home closely as prednisone can increase them. You have also been provided with an albuterol inhaler for you to use for wheezing or shortness of breath. You have been educated on safe inhaler use. If you find that you are using this more often without improvement, please come to the emergency department for further evaluation. Return with new or worsening symptoms. The case of an emergency call 911. Prescriptions: New prednisone 50 mg tablet 50 mg PO DAILY 5 Days Qty: 5 0RF albuterol sulfate 90 mcg/actuation HFA aerosol inhaler 2 puff inhalation Q20M PRN (Reason: shortness of breath or wheezing) Qty: 8.5 0RF No Action albuterol sulfate 90 mcg/actuation HFA aerosol inhaler 2 puff inhalation Q4-6H PRN (Reason: shortness of breath or wheezing) Qty: 8.5 0RF azithromycin [Zithromax Z-Santos] 250 mg tablet See Rx Instructions .ROUTE .COMPLEX Qty: 6 0RF Rx Instructions: take 500 mg today (day 1), then 250 mg for 4 days (days 2-5) prednisone 20 mg tablet 60 mg PO DAILY 5 Days Qty: 15 0RF prednisone 20 mg tablet 60 mg PO DAILY 4 Days Qty: 12 0RF albuterol sulfate [Ventolin HFA] 90 mcg/actuation HFA aerosol inhaler 1 inh inhalation QID PRN (Reason: shortness of breath or wheezing) Qty: 8.5 1RF azithromycin 250 mg tablet 250 mg PO DAILY 4 Days Qty: 4 0RF Rx Instructions: start on day 2 of therapy acetaminophen [Tylenol] 325 mg capsule 325 mg PO Q4H PRN (Reason: pain) Qty: 30 0RF prednisone 20 mg tablet 40 mg PO DAILY 5 Days Qty: 10 0RF albuterol sulfate 90 mcg/actuation aerosol powdr breath activated 2 inh inhalation Q4-6H PRN (Reason: shortness of breath or wheezing) Qty: 1 0RF Interventions: ED Discharge Assessment Last Done: 02/11/24 14:27 Discharge Date/Time: 02/11/24 14:28 Print Language: Ivorian
[2024-02-11] MEDS: Albuterol Sulfate 2.5 MG, Albuterol/Iprat 2.5/0.5MG 3 ML 3 ML INHALE (10:29)
[2024-02-11 10:31] VITALS: PULSE 62; RESP 18; O2SAT 98
[2024-02-11 10:43] LABS: Alanine Aminotransferase 26 U/L (0-40); Albumin Level 4.4 g/dL (3.5-5.0); Alkaline Phosphatase 99 U/L (39-117); Anion Gap 14 (12-20); Aspartate Amino Transferase 94 U/L (5-37); Bilirubin Total 0.5 mg/dL (0.0-1.0); Blood Urea Nitrogen 21 mg/dL (9-16); Calcium 9.4 mg/dL (8.4-10.2); Carbon Dioxide 25 mmol/L (22-29); Chloride 103 mmol/L (96-108); Creatinine Clr Calc Pharmacy 90.4; Estimated Glomerular Filt Rate > 60; Glucose Random 76 mg/dL (60-115); Magnesium 2.3 mg/dL (1.6-2.6); Potassium 3.8 mmol/L (3.3-5.1); Sodium 138 mmol/L (135-145); Total Protein 7.6 g/dL (6.5-8.0)
[2024-02-11 14:20] VITALS: BP 146/76; PULSE 87; O2SAT 97
[2024-02-11 14:27] VITALS: BP 146/76; PULSE 87; RESP 18; TEMP 36.6; O2SAT 97
== END 2024-02-11 14:28 | disposition home or self-care (01) ==
PROVIDERS: Physician Assistant Medical; Emergency Provider Emergency Medicine; PCP Nurse Practitioner Family
DX: J45.901 Unspecified asthma with (acute) exacerbation (principal); R06.02 Shortness of breath; Z11.52 Encounter for screening for COVID-19; Z20.822 Contact with and (suspected) exposure to COVID-19; Z79.899 Other long term (current) drug therapy
CPT/HCPCS: 0241U; 36415; 71046; 80053; 83735; 85025; 94640; 99283; 99284; J1100

== ENCOUNTER 2024-03-11 05:01 | Emergency (ER) | payer OTHER, SELFPAY ==
--- NOTE | ~2024-03-11 | CT_ITS ---
EXAMINATION: CT CERVICAL SPINE WITHOUT CONTRAST CLINICAL INFORMATION: Neck injury and pain COMPARISON: None available. TECHNIQUE: Multiple 3.0 and 0.6 mm axial images were obtained from base of skull to T1 levels without IV contrast enhancement. Sagittal and coronal 2.0 mm bone window images were reconstructed from axial image data. This CT examination was performed using dose optimization techniques as appropriate, variously including the following: *Automated exposure control *Adjustment of mA and/or kV according to patient size (this includes techniques or standardized protocols for targeted exams where dose is matched to indication/reason for exam; i.e. extremities or head) *Use of iterative reconstruction technique DLP: 385.78 mGy-cm FINDINGS: C1/C2: Bony structures are intact with normal alignment. There is no spinal stenosis. C2/C3: Bony structures are intact with normal alignment. Anterior bridging syndesmophytes are present. There is no spinal stenosis. Bilateral C2/C3 neuroforamina are patent. Bilateral apophyseal joints are intact with normal alignment. C3/C4: Bony structures are intact with normal alignment. Anterior bridging syndesmophytes are present. There is no spinal stenosis. Bilateral C3/C4 neuroforamina are markedly stenosed. Bilateral apophyseal joints are intact with normal alignment. C4/C5: Bony structures are intact with normal alignment. There is no spinal stenosis. There is mild asymmetric right C4/C5 neuroforaminal stenosis. Bilateral apophyseal joints are intact with normal alignment. C5/C6: Bony structures are intact with normal alignment. Vacuum disc phenomenon is present. Anterior sharp bridging syndesmophytes are present. There is no spinal stenosis. There are severe right and moderate left C5/C6 neuroforamina stenosis. Bilateral apophyseal joints are intact with normal alignment. C6/C7: Bony structures are intact with normal alignment. Vacuum disc phenomenon is present. Anterior sharp bridging syndesmophytes are present. There is no spinal stenosis. Bilateral C6/C7 neuroforamina are patent. Bilateral apophyseal joints are intact with normal alignment. C7/T1: Bony structures are intact with normal alignment. There is no spinal stenosis. Bilateral C7/T1 neuroforamina are patent. Bilateral apophyseal joints are intact with normal alignment. CT/CT cervical spine wo IV con IMPRESSION: 1. No evidence of acute fracture or dislocation. 2. Anterior bridging syndesmophytes are present at C2/C3, C3/C4, C4/C5, C5/C6 and C6/C7 levels. 3. There is no spinal stenosis. 4. There are marked bilateral C3/C4 and severe right C5/C6, mild right C4-C5, moderate left C5-C6 neuroforaminal stenosis. 5. There is C5-C6 and C6-C7 degenerative cervical disc disease with vacuum disc phenomenon.
--- NOTE | ~2024-03-11 | CT_ITS ---
EXAMINATION: CT ABDOMEN AND PELVIS WITHOUT CONTRAST CLINICAL INFORMATION: Abdominal trauma and pain COMPARISON: None available. TECHNIQUE: Multidetector volumetric imaging was performed from the superior aspect of the liver through the pubic symphysis. Sagittal and coronal reformatted images were obtained on the technologist's workstation. This CT examination was performed using dose optimization techniques as appropriate, variously including the following: *Automated exposure control *Adjustment of mA and/or kV according to patient size (this includes techniques or standardized protocols for targeted exams where dose is matched to indication/reason for exam; i.e. extremities or head) *Use of iterative reconstruction technique DLP: 2123.0 mGy-cm FINDINGS: CT ABDOMEN LUNG BASES: A 5 mm calcified granuloma is seen at posterior lateral pleural border of right lower lobe. Bilateral gynecomastia is present, more extensive on the right side. LIVER: A low-density lesion is seen at anterior medial corner of left hepatic lobe segment IVb measuring 1.4 cm in diameter, mean attenuation of -26 Hounsfield units. GALLBLADDER AND BILIARY TREE: Gallbladder appears unremarkable without calcified stones. Common bile duct is not dilated. SPLEEN: The spleen is normal in size without focal lesion on noncontrast enhanced images. PANCREAS: The pancreas appears unremarkable on noncontrast enhanced images. ADRENAL GLANDS: Right adrenal gland is normal in shape and size. Left adrenal body low density lesion is seen, measuring 1.5 cm in AP diameter, 1.6 cm in width, 2.2 cm in vertical height, mean attenuation of -3 Hounsfield units, consistent with benign adenoma. KIDNEYS: The visualized bilateral kidneys are normal in size without stones. There are mild left renal pelviectasis and proximal left hydroureter with a L2-L3 level proximal left ureteric calculus measuring 0.4 cm in AP diameter, 0.5 cm in vertical height No right caliectasis or dilated pelvis is seen. No dilated right ureter is found. BOWELS: There is mild fecal distention of the ascending and transverse colon. Descending colon is also filled with feces. RETROPERITONEUM: No abnormally enlarged retroperitoneal lymph nodes, mass or hematoma could be seen. BLOOD VESSELS: Abdominal aorta is normal in size and smooth in outline. ABDOMINAL WALL: Small umbilical hernia containing mesenteric fat is seen. PERITONEUM: There is no ascites. There were no abdominal peritoneal inflammatory changes seen. No free peritoneal air was seen. BONES: Advanced L4-L5 and L5-S1 degenerative lumbar disc disease, posterior L4-L5 and L5-S1 syndesmophytes impinging the spinal canal are seen. No fracture or dislocation. No focal bone lesion diagnostic of metastatic disease could be seen in the lumbar region. CT PELVIS URINARY BLADDER: The visualized urinary bladder is normal, filled with urine. No intraluminal stones are found. No abnormally dilated distal ureters are seen. BOWELS: There is no abnormal dilatation of the large and small bowel loops. Normal appendix is seen medial to the cecum. GENITAL ORGANS: Seminal vesicles are unremarkable. Prostate gland is normal. LYMPH NODES: No abnormally enlarged iliac or inguinal lymph nodes are seen. PERITONEUM: No inflammatory changes, ascites or free peritoneal air are found in the pelvis. Bilateral small inguinal hernias containing mesenteric fat are present. BONES: No fracture or dislocation. No focal bone lesion diagnostic of metastatic disease could be seen in the pelvis. CT/CT abdomen pelvis wo IV con IMPRESSION: 1. No evidence of acute traumatic injury in the abdomen and pelvis on noncontrast images. 2. Mild left renal pelviectasis and proximal left hydroureter with a 0.5 cm proximal left ureteric calculus. 3. Left adrenal body benign adenoma. 4. Left hepatic lobe segment IVb hypodense lesion is present, compatible with simple cyst or focal steatosis. 5. Small umbilical and bilateral inguinal hernias containing mesenteric fat. 6. Advanced L4-L5 and L5-S1 degenerative lumbar disc disease with posterior L4-L5 and L5-S1 syndesmophytes impinging the spinal canal. Fleischner guidelines were followed.
--- NOTE | ~2024-03-11 | XR_ITS ---
EXAMINATION: CHEST AND LEFT FEMUR CLINICAL INFORMATION: Trauma COMPARISON: Chest 02/11/2024, CT abdomen pelvis earlier today TECHNIQUE: Single PA supine view of the chest, 2 views left femur FINDINGS: No significant abnormalities seen involving the heart, lungs, mediastinum or bony thorax. There is mild degenerative changes at the hip. There is some mild flattening and subchondral lucency and sclerosis superiorly suggestive of avascular necrosis. No acute fractures or bony destructive lesions. Degenerative changes are seen in the partially imaged knee with some narrowing of the medial compartment and some posterior patellar sclerosis. XR/XR chest 1V IMPRESSION: 1. No acute intrathoracic disease. 2. No acute fractures. 3. Degenerative changes in the left hip and knee. 4. 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
--- NOTE | ~2024-03-11 | CT_ITS ---
EXAMINATION: CT HEAD WITHOUT CONTRAST CLINICAL INFORMATION: Blunt head trauma without loss of consciousness, significant head injury and posttraumatic headache. COMPARISON: CT scan of brain on 09/21/2018 TECHNIQUE: Contiguous axial imaging was performed from the skull base to vertex without intravenous administration of contrast. This CT examination was performed using dose optimization techniques as appropriate, variously including the following: *Automated exposure control *Adjustment of mA and/or kV according to patient size (this includes techniques or standardized protocols for targeted exams where dose is matched to indication/reason for exam; i.e. extremities or head) *Use of iterative reconstruction technique DLP: 673.06 mGy-cm FINDINGS: Ventricles, sulci and cisterns are normal. There is no midline shift, no abnormal intra- or extra- axial fluid accumulation. [place] and white matter differentiation is normal. Large acute right superior lateral frontal scalp hematoma is seen measuring 4.4 cm in AP diameter, 2.0 cm in thickness. Bone window images show no evidence of skull fracture. There is almost complete opacification of right maxillary sinus with thickened mucosa. Bilateral anterior ethmoid sinuses and right frontal sinus also show marked mucosal thickening. CT/CT head/brain wo IV con IMPRESSION: 1. Interval development of Large right superior lateral frontal scalp acute hematoma is present. 2. No intracranial hemorrhage or skull fracture is seen. 3. No evidence of space occupying lesion could be found. 4. The current plain CT scan of the brain shows no diagnostic evidence of acute cerebral infarction. 5. Persistent Marked right maxillary, frontal and anterior ethmoid sinusitis.
--- NOTE | ~2024-03-11 | XR_ITS ---
EXAMINATION: CHEST AND LEFT FEMUR CLINICAL INFORMATION: Trauma COMPARISON: Chest 02/11/2024, CT abdomen pelvis earlier today TECHNIQUE: Single PA supine view of the chest, 2 views left femur FINDINGS: No significant abnormalities seen involving the heart, lungs, mediastinum or bony thorax. There is mild degenerative changes at the hip. There is some mild flattening and subchondral lucency and sclerosis superiorly suggestive of avascular necrosis. No acute fractures or bony destructive lesions. Degenerative changes are seen in the partially imaged knee with some narrowing of the medial compartment and some posterior patellar sclerosis. XR/XR femur LT 2V IMPRESSION: 1. No acute intrathoracic disease. 2. No acute fractures. 3. Degenerative changes in the left hip and knee. 4. 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
[2024-03-11 05:05] VITALS: PULSE 93; O2SAT 96
[2024-03-11 05:08] VITALS: BP 142/69; PULSE 68; RESP 16; TEMP 36.6; O2SAT 96
[2024-03-11 05:10] VITALS: BP 142/69; PULSE 75; RESP 18; TEMP 36.6; O2SAT 96; BMI 23.8
[2024-03-11] MEDS: Diphth,Pertus(ACell),Tet Adult 0.5 ML SYRINGE IM (05:28)
--- OUTSIDE RECORDS SUMMARY | 2024-03-11 05:45 | XMS_ITS | Continuity of Care Document ---
Author Organization [facility] ter Address [address] [place] [address]- Care Team Providers Care Hog Feeder Name Role Phone Not on Staff, PCP Primary Care Physician Unavail able [place] [facility] [place] 02/06/[address] [address]- Discharge Disposition: A-D/C Walkout Attending Physician: Not on Staff, Attending MD Admitting Physician: Not on Staff, Admitting MD Referring Physician: Not on Staff, Referring MD Allergies, Adverse Reactions, Alerts No Known Allergies Immunizations Given and Recorded Vaccine Date Status Refusal Reason [id number] bivalent booster vax 10/03/22 Recorded SARS-CoV-2 (COVID-19) mRNA-1273 vaccine 01/03/22 R ecorded SARS-CoV-2 (COVID-19) mRNA-1273 vaccine 01/23/21 R ecorded SARS-CoV-2 (COVID-19) mRNA-1273 vaccine 12/25/20 R ecorded influenza virus vaccine, inactivated 09/18/19 Give n Medications aspirin 325 mg oral delayed release tablet 325 mg, 1, tablet, By Mouth, Daily, # 30 tablet, Refills 0, Tot. Refills 0, Maintenance, 02/26/23 13:24:00 EDT, Route to Pharmacy Electronically, [facility], Partial fill upon patient request if the prescription is for a schedule II opio... Start Date: 02/26/23 Status: Ordered Colace sodium 100 mg oral capsule 100 mg, 1, capsule, By Mouth, 2 times a day, # 20 capsule, Refills 0, Tot. Refills 0, Maintenance, 02/26/23 13:23:00 EDT, Route to Pharmacy Electronically, [facility], Partial fill uponpatient request if the prescription is for a schedu... Start Date: 02/26/23 Stop Date: 03/08/23 Status: Ordered levalbuterol 45 mcg/inh inhalation aerosol 2 puffs, Inhalation, Every 4 hours, PRN for wheezing, # 15 Gm, 0 Refills, Maintenance, 02/21/23 6:12:00 EDT, Aerosol, Partial fill upon patient request if the prescription is for a schedule II opioiddrug. Start Date: 02/21/23 Status: Ordered methadone 10 mg oral tablet = 90 mg, By Mouth, Daily, 0 Refills, Maintenance, 12/30/19 14:44:00 EDT, Tablet, Partial fill upon patient request Start Date: 12/30/19 Status: Ordered Problem List Condition Confirmation Course Effective Dates Status Health St [facility] Informant Alcohol abuse Confirmed Active Ankle fracture Confirmed Active Methadone dependence Confirmed Active Chronic narcotic use Confirmed Active Obese class I Confirmed Active Vital Signs Most recent to oldest [Reference Range]: 1 2 Height 165 cm (02/05/24 4:56 PM) 165 cm (02/05/24 2:47 PM) Weight 82 kg (02/05/24 4:56 PM) 82 kg (02/05/24 2:47 PM) Oxygen Saturation [94-100 %] 98 % (02/05/24 2:47 PM) 95 % (02/05/24 2:41 PM) Pulse Rate [55-90 bpm] 94 bpm *H* (02/05/24 2:47 PM) 114 bpm *H* (02/05/24 2:41 PM) Body Mass Index [18.5-24.99 kg/m2] 30.12 kg/m2 *>HHI* (02/05/24 2:47 PM) Blood Pressure [90-138/55-84 mm Hg] 136/ 99mm Hg (02/05/24 2:47 PM) Respiratory Rate [16-30 br/min] 18 br/mi n (02/05/24 2:47 PM) 18 br/min (02/05/24 2:41 PM) Temperature [96.8-100.4 DegF] 98.1 DegF (02/05/24 2:47 PM) Mode of Delivery (Oxygen) Room air (02/05/24 2:47 PM) Room air (02/05/24 2:41 PM) Blood pressure sites Arm, right (4/15/24 2:47 PM) Temperature Route Oral (02/05/24 2:47 PM) Dry Weight 82 kg (02/05/24 4:56 PM) 82 kg (02/05/24 2:47 PM) Weight Obtained Via Patient/family state d (02/05/24 2:47 PM) Dry Weight Obtained Via Patient/family s tated (02/05/24 2:47 PM) Social History Social History Type Response Smoking Status 5-9 cigarettes (betw een 1/4 to 1/2 pack)/day in last 30 days entered on: 12/28/19 Sex Patient Care team information Care Team Personnel Name: Percy Sierra RN Position: [facility] ED RN W/OE and Tasks Member Role: Primary Care Nurse Name: Denise Wade RN Position: [facility] RN Member Role: Primary Care Nurse Name: Consuelo Oneill RN Position: [facility] RN Member Role: Primary Care Nurse Name: Serena Eubanks RN Position: [facility] RN Member Role: Primary Care Nurse Name: Jose Barron RN Position: [facility] RN Member Role: Primary Care Nurse Name: Mayra Luna RN Position: [facility] SN RN Member Role: Primary Care Nurse Name: Ledy Jaeger RN Position: [facility] RN Member Role: Primary Care Nurse Name: Eda Ramirez RN Position: [facility] RN Member Role: Primary Care Nurse Name: Supriya Stephens RN Position: [facility] RN Member Role: Primary Care Nurse Name: Skyla Yoo RN Position: [facility] RN Member Role: Primary Care Nurse Name: Randi Lu RN Position: [facility] RN Member Role: Primary Care Nurse Name: Eugenie Quintana RN Position: [facility] RN Member Role: Primary Care Nurse Name: Linda Ann RN Position: [facility] RN Member Role: Primary Care Nurse Name: Not on Staff, PCP Position: [facility] Physician (General Medicine) Member Role: PCP Name: Nanette Espniosa RN Position: [facility] RN Member Role: Primary Care Nurse Name: Arin Rodriguez RN Position: [facility] RN Member Role: Primary Care Nurse Name: Italia Childs RN Position: [facility] RN Member Role: Primary Care Nurse Name: Verenice Gomez RN Position: [facility] OB RN Member Role: Primary Care Nurse Name: Kinga Hummel RN Position: [facility] RN Member Role: Primary Care Nurse Name: Stacy Thompson RN Position: [facility] RN Member Role: Primary Care Nurse Name: Yefri Bravo RN Position: [facility] SN RN Member Role: Primary Care Nurse Care Team Related Persons Name: MARCELINA VALDEZ Address: home [address] [place] [address] Name: ANDREW DALAL Address: [address] [place] [address] Name: TARA LEI Address: [address] [place] [address]
--- OUTSIDE RECORDS SUMMARY | 2024-03-11 05:45 | XMS_ITS | Continuity of Care Document ---
Author Organization [facility] Address [address] [place] [id number]- Care Team Providers Care Tower Hoist Operator Name Role Phone Brian Yusuf NP Primary Care Physician [phone] [id number] Date(s): 03/11/20 - 03/18/20 [facility] [address] [place] [address]- [facility] Attending Physician: Ce Barba NP Admitting Physician: Ce Babra NP Referring Physician: Brian Yusuf NP Allergies, Adverse Reactions, Alerts Substance Reaction Severity Status NKA Active Immunizations Given and Recorded Vaccine Date Status Refusal Reason influenza virus vaccine, inactivated 09/18/19 Give n Not Given Vaccine Date Status Refusal Reason influenza virus vaccine, inactivated 1 09/18/19 No t Given Patient Refuses influenza virus vaccine, inactivated 09/15/19 Not Given Patient Refuses pneumococcal 23-valent vaccine 07/01/19 Not Given Patient Refuses 1Result Comment: Patient changed mind Medications apixaban = 5 mg, By Mouth, 2 times a day, 0 Refills, Maintenance, 09/24/19 10:57:14 EST, Tablet Start Date: 09/24/19 Status: Ordered atorvastatin 20 mg oral tablet 1 tablet = 20 mg, By Mouth, Daily, 0 Refills, Maintenance, 10/18/19 9:03:00 EST Start Date: 10/18/19 Status: Ordered Compression Stockings See Instructions, # 2 each, Refills 3, Tot. Refills 3, Maintenance, surgical, knee length 20-30 mm Hg, 10/18/19 9:35:00 EST, Compound Start Date: 10/18/19 Status: Ordered docusate sodium 100 mg oral capsule 100 mg, 1, capsule, By Mouth, 2 times a day, # 14 capsule, Refills 0, Tot. Refills 0, Maintenance, 12/30/19 12:06:00 EDT, Print Requisition Start Date: 12/30/19 Stop Date: 01/06/20 Status: Ordered Flovent 110 mcg Inhaler HFA 1, puffs, Inhalation, 2 times a day, Refills 0, Maintenance, 04/07/19 14:15:55 EDT, Inhaler Start Date: 04/07/19 Status: Ordered hydrochlorothiazide 12.5 mg oral tablet 1 tablet = 12.5 mg, By Mouth, Daily, 0 Refills, Maintenance, 10/18/19 9:04:00 EST Start Date: 10/18/19 Status: Ordered Loratadine 10 mg, By Mouth, Daily, Refills 0, Maintenance, 10/18/19 9:07:00 EST Start Date: 10/18/19 Status: Ordered methadone 10 mg oral tablet = 60 mg, By Mouth, Daily, 0 Refills, Maintenance, 12/30/19 14:44:00 EDT, Tablet, Partial fill upon patient request Start Date: 12/30/19 Status: Ordered Minipress 2 mg oral capsule 1 capsule = 2 mg, By Mouth, 3 times a day, 0 Refills, Maintenance, 10/18/19 9:10:00 EST Start Date: 10/18/19 Status: Ordered montelukast 10 mg oral tablet 10 mg, 1, tablet, By Mouth, Daily, Refills 0, Maintenance, 04/07/19 14:11:38 EDT Start Date: 04/07/19 Status: Ordered Omeprazole = 20 mg, By Mouth, Daily, 0 Refills, Maintenance, 10/18/19 9:05:00 EST Start Date: 10/18/19 Status: Ordered Remove Patch 1 each, Topically, Daily, 0 Refills, Maintenance, Patch Start Date: 09/24/19 Status: Ordered risperiDONE 1 mg oral tablet 2 mg, 2, tablet, By Mouth, Daily, # 30 tablet, Refills 0, Maintenance, 04/07/19 14:17:20 EDT Start Date: 04/07/19 Status: Ordered testosterone cypionate 200 mg/mL intramuscular solution = 150 mg, Intramuscular, Every 21 days, 0 Refills, Maintenance, 10/18/19 9:09:00 EST Start Date: 10/18/19 Status: Ordered Ventolin 90 mcg Inhaler 1, puffs, Inhalation, Every 4 hours, PRN, Refills 0, Maintenance, 04/07/19 14:16:53 EDT, Inhaler Start Date: 04/07/19 Status: Ordered Problem List Condition Effective Dates Status Health Status Inform ant Alcohol abuse(Confirmed) Active Ankle fracture(Confirmed) Active Methadone dependence(Confirmed) Active Chronic narcotic use(Confirmed) Active Vital Signs Most recent to oldest [Reference Range]: 1 Height 165 cm (03/11/20 1:38 PM) Weight 87.6 kg (03/11/20 1:38 PM) Body Mass Index [18.5-24.99] 32.18 *>HHI* (03/11/20 1:38 PM) Blood Pressure [90-138/55-84 mm Hg] 130/ 70mm Hg (03/11/20 1:38 PM) Blood pressure sites Arm, left (03/11/20 1:38 PM) Social History Social History Type Response Smoking Status 5-9 cigarettes (betw een 1/4 to 1/2 pack)/day in last 30 days entered on: 12/28/19 Sex
--- OUTSIDE RECORDS SUMMARY | 2024-03-11 05:45 | XMS_ITS | Continuity of Care Document ---
Author Organization [facility] ter Address [address] [place] [address]- Care Team Providers Care Mathematical Technician Name Role Phone Not on Staff, PCP Primary Care Physician Unavail able [place] [facility] [place] 03/06/[address] [address]- Encounter Diagnosis Asthma exacerbation(Final) - 03/06/24 Left ankle pain(Final) - 03/06/24 Left ankle pain(Final) - 03/06/24 Asthma exacerbation(Final) - 03/06/24 Discharge Disposition: A-D/C Home Attending Physician: Eladio Cardozo DO Admitting Physician: Eladio Cardozo DO Referring Physician: Not on Staff, Referring MD Allergies, Adverse Reactions, Alerts No Known Allergies Immunizations Given and Recorded Vaccine Date Status Refusal Reason [id number] bivalent booster vax 10/03/22 Recorded SARS-CoV-2 (COVID-19) [...] 02/26/23 13:24:00 EDT, Route to Pharmacy Electronically, [facility], Partial fill upon patient request if the prescription is for a schedule II opio... Start Date: 02/26/23 Status: Ordered Colace sodium 100 mg oral capsule 100 mg, 1, capsule, By Mouth, 2 times a day, # 20 capsule, Refills 0, Tot. Refills 0, Maintenance, 02/26/23 13:23:00 EDT, Route to Pharmacy Electronically, [facility], Partial fill uponpatient request if the prescription is for a schedu... Start Date: 02/26/23 Stop Date: 03/08/23 Status: Ordered diclofenac 1% topical gel 1 application, Topically, 4 times a day, do not use for more than 7 days, # 100 Gm, 0 Refills, Maintenance, 03/06/24 8:30:00 EDT, Gel, [id number], Partial fill upon patient request if the prescription is for a schedule II opioid drug., 165, cm... Start Date: 03/06/24 Status: Ordered levalbuterol 45 mcg/inh inhalation aerosol [...] patient request Start Date: 12/30/19 Status: Ordered predniSONE 50 mg oral tablet 1 tablet = 50 mg, By Mouth, Daily, for 5 days, take next dose morning 03/07, # 5 tablet, 0 Refills, Acute 03/12/24 8:11:00 EDT, 03/07/24 8:11:00 EDT, Tablet, [id number], Partial fill upon patient request if the prescription is for a sc... Start Date: 03/07/24 Stop Date: 03/12/24 Status: Ordered Tylenol 325 mg oral tablet 650 mg, 2, tablet, By Mouth, Every 6 hours, PRN, # 30 tablet, Refills 0, Tot. Refills 0, Acute 03/13/24 8:00:00 EDT, for fever, 03/06/24 8:30:00 EDT, Route to Pharmacy Electronically, [id number], Partial fill upon patient request if the prescr... Start Date: 03/06/24 Stop Date: 03/13/24 Status: Ordered Problem List Condition Confirmation Course Effective Dates Status Health [facility] Informant Alcohol abuse Confirmed Active Ankle fracture Confirmed Active Methadone dependence Confirmed Active Chronic narcotic use Confirmed Active Obese class I Confirmed Active Results Radiology Reports * Exam Date Time Procedure Performing Provider Status 03/06/24 5:49 AM Ankle Min 3 Views Left Jose Perales; Auth (Verified) Notes: (Ankle Min 3 Views Left) Reason For Exam: Pain RESULT: Ankle Min 3 Views Left Examination: Left foot and left ankle performed on 03/06/2024. History: Hx of Present Illness: asthma exacerbation - increased WOB labored. also c o leg pain. states he broke his leg 3 years ago and had surgery here.; Reason: Pain; Clinical Question(s): Osteomyelitis Findings: Frontal, oblique, and lateral views of the left foot and frontal, oblique, and lateral views of theleft ankle are compared to a prior study dated 02/21/2023. Deformity of the mortise is again seen, consistent with prior trauma. There is fusion of the distaltibia and fibula with ossification of the interosseous membrane. Osteopenia is noted. No fractures or dislocations are present. The soft tissues are unremarkable. IMPRESSION: Stigmata of prior trauma. There is no acute osseous abnormality. WSN: [id number] Ordering Physician: Mary Marquis Dictated By: Consuelo Collier MD Dictated Date/Time: 03/06/24 8:40 am Reviewed By: Consuelo Collier MD Signed By: Consuelo Collier MD Signed Date/Time: 03/06/24 8:40 am Transcribed By: JESSICA Transcribed Date/Time: 03/06/24 8:38 am * Exam Date Time Procedure Performing Provider Status 03/06/24 5:49 AM Foot Min 3 Views Left Sowmya Perales; Auth (Verified) Notes: (Foot Min 3 Views Left) Reason For Exam: Pain RESULT: Foot Min 3 Views Left Examination: Left foot and left ankle performed on 03/06/2024. History: Hx of Present Illness: asthma exacerbation - increased WOB labored. also c o leg pain. states he broke his leg 3 years ago and had surgery here.; Reason: Pain; Clinical Question(s): Osteomyelitis Findings: Frontal, oblique, and lateral views of the left foot and frontal, oblique, and lateral views of theleft ankle are compared to a prior study dated 02/21/2023. Deformity of the mortise is again seen, consistent with prior trauma. There is fusion of the distaltibia and fibula with ossification of the interosseous membrane. Osteopenia is noted. No fractures or dislocations are present. The soft tissues are unremarkable. IMPRESSION: Stigmata of prior trauma. There is no acute osseous abnormality. WSN: [id number] Ordering Physician: Mary Marquis Dictated By: Consuelo Collier MD Dictated Date/Time: 03/06/24 8:40 am Reviewed By: Consuelo Collier MD Signed By: Consuelo Collier MD Signed Date/Time: 03/06/24 8:40 am Transcribed By: JESSICA Transcribed Date/Time: 03/06/24 8:38 am * Exam Date Time Procedure Performing Provider Status 03/06/24 4:06 AM Chest Portable Sowmya Perales; Auth (Verified) Notes: (Chest Portable) Reason For Exam: Shortness of Breath RESULT: Chest Portable Chest Portable Hx of Present Illness: asthma exacerbation - increased WOB labored. also c o leg pain. states he broke his leg 3 years ago and had surgery here.; Reason: Shortness of Breath; Clinical Question(s): Pneumonia COMPARISON: 03/21/2020 and 10/06/2007 FINDINGS: LINES AND TUBES: None. LUNGS AND PLEURA: Clear lungs. Normal pulmonary vascularity. No pleural effusion. No pneumothorax. HEART, MEDIASTINUM AND KATE: Heart is normal in size. Normal mediastinal and hilar contour. BONES AND SOFT TISSUES: No acute abnormality. IMPRESSION: No acute abnormality. I have personally reviewed the images and I agree with this report. WSN: [id number] Ordering Physician: Mary Marquis Dictated By: Sully Blackmon DO Dictated Date/Time: 03/06/24 8:22 am Reviewed By: Javed Cervantes MD, V Signed By: Javed Cervantes MD, V Signed Date/Time: 03/06/24 8:27 am Transcribed By: JESSICA Transcribed Date/Time: 03/06/24 8:10 am * Exam Date Time Procedure Performing Provider Status 03/06/24 4:59 AM US Doppler Ext Lower Venous Left Edwin Santana; Auth (Verified) Notes: (US Doppler Ext Lower Venous Left) Reason For Exam: Swelling Extremities RESULT: US Doppler Ext Lower Venous Left US Doppler Ext Lower Venous Left Hx of Present Illness: asthma exacerbation - increased WOB labored. also c o leg pain. states he broke his leg 3 years ago and had surgery here.; Reason: Swelling Extremities; Clinical Question(s): Thrombus COMPARISON: 05/08/2021 IMAGING TECHNIQUE: Ultrasound of the veins from the groin through the calf was performed using grayscale, color, and spectral Doppler ultrasound assessing for complete compressibility and normal flowcharacteristics. FINDINGS: Common femoral vein: Patent. No thrombosis. Femoral vein: Patent. No thrombosis. Popliteal vein: Patent. No thrombosis. Gastrocnemius veins: The visualized portions are patent without evidence of thrombosis. Peroneal veins: The visualized portions are patent without evidence of thrombosis. Posterior tibial veins: The visualized portions are patent without evidence of thrombosis. Contralateral common femoral vein: Patent. No thrombosis. OTHER FINDINGS: None. IMPRESSION: No evidence of deep venous thrombosis. I have personally reviewed the images and I agree with this report. WSN: [id number] Ordering Physician: Mary Marquis Dictated By: Too Fuentes MD Dictated Date/Time: 03/06/24 6:37 am Reviewed By: Paramjit Warner MD Signed By: Paramjit Warner MD Signed Date/Time: 03/06/24 6:42 am Transcribed By: JESSICA Transcribed Date/Time: 03/06/24 5:02 am Vital Signs Most recent to oldest [Reference Range]: 1 2 3 Weight 67.7 kg (03/06/24 8:39 AM) 67.7 kg (03/06/24 7:19 AM) 67.7 kg (03/06/24 3:03 AM) Oxygen Saturation [94-100 %] 98 % (03/06/24 7:19 AM) 97 % (03/06/24 3:03 AM) 98 % (03/06/24 3:00 AM) Pulse Rate [55-90 bpm] 76 bpm (03/06/24 7:19 AM) 109 bpm *H* (03/06/24 3:03 AM) 117 bpm *H* (03/06/24 3:00 AM) Blood Pressure [90-138/55-84 mm Hg] 129/70mm Hg (03/06/24 7:19 AM) 116/57mm Hg (03/06/24 3:03 AM) Respiratory Rate [16-30 br/min] 10 br/min *L* (03/06/24 7:19 AM) 20 br/min (03/06/24 3:03 AM) 20 br/min (03/06/24 3:00 AM) Temperature [96.8-100.4 DegF] 98.1 DegF (03/06/24 7:19 AM) 98.2 DegF (03/06/24 3:03 AM) Mode of Delivery (Oxygen) Room air (03/06/24 7:19 AM) Room air (03/06/24 3:03 AM) Room air (03/06/24 3:00 AM) Blood pressure sites Arm, right (03/06/24 3:03 AM) Temperature Route Oral (03/06/24 7:19 AM) Oral (03/06/24 3:03 AM) Dry Weight 67.7 kg (03/06/24 8:39 AM) 67.7 kg (03/06/24 7:19 AM) 67.7 kg (03/06/24 3:03 AM) Social History Social History Type Response Smoking Status 5-9 cigarettes (betw een 1/4 to 1/2 pack)/day in last 30 days entered on: 12/28/19 Sex EKG study * Event Display: ECG 12-Lead Authored Date: Please click on pdf link to open report * Event Display: ECG 12-Lead Authored Date: Ventricular Rate: 89 BPM Atrial Rate: 89 BPM P-R Interval: 142 ms QRS Duration: 86 ms Q-T Interval: 408 ms QTC Calculation(Bazett): 496 ms P Normal: 76 degrees R Normal: 68 degrees T Normal: 64 degrees Normal sinus rhythm Prolonged QT Abnormal ECG When compared with ECG of 17-SEP-2019 19:15, Nonspecific T wave abnormality no longer evident in Lateral leads QT has lengthened Confirmed by NADIA MOORE MD ([id number]) on 03/06/2024 11:59:53 AM [place]: NADIA MOORE MD * Event Display: EKG Authored Date: Note * Dilcia Lynch: PERFORM, SIGN, VERIFY Event Display: Patient Education Handout Authored Date: [id number] Patient Care team information Care Team Personnel Name: Percy Sierra RN Position: [facility] ED RN W/OE and Tasks Member Role: Primary Care Nurse Name: Denise Wade RN Position: [facility] RN Member Role: Primary Care Nurse Name: Consuelo Oneill RN Position: [facility] RN Member Role: Primary Care Nurse Name: Serena Eubanks RN Position: [facility] RN Member Role: Primary Care Nurse Name: Jose Barron RN Position: [facility] RN Member Role: Primary Care Nurse Name: Mayra Luna RN Position: [facility] SN RN Member Role: Primary Care Nurse Name: Ledy Jaeger RN Position: [facility] RN Member Role: Primary Care Nurse Name: Eda Ramirez RN Position: [facility] RN Member Role: Primary Care Nurse Name: Supriya Stephens RN Position: [facility] RN Member Role: Primary Care Nurse Name: Skyla Yoo RN Position: [facility] RN Member Role: Primary Care Nurse Name: Randi Lu RN Position: [facility] RN Member Role: Primary Care Nurse Name: Eugenie Quintana RN Position: [facility] RN Member Role: Primary Care Nurse Name: Linda Ann RN Position: [facility] RN Member Role: Primary Care Nurse Name: Not on Staff, PCP Position: [facility] Physician (General Medicine) Member Role: PCP Name: Nanette Espinosa RN Position: [facility] RN Member Role: Primary Care Nurse Name: Arin Rodriguez RN Position: [facility] RN Member Role: Primary Care Nurse Name: Italia Childs RN Position: [facility] RN Member Role: Primary Care Nurse Name: Verenice Gomez RN Position: [facility] OB RN Member Role: Primary Care Nurse Name: Kinga Hummel RN Position: [facility] RN Member Role: Primary Care Nurse Name: Stacy Thompson RN Position: [facility] RN Member Role: Primary Care Nurse Name: Yefri Bravo RN Position: [facility] SN RN Member Role: Primary Care Nurse Care Team Related Persons Name: ASIA VALDEZN Address: home [address] [place] [address] Name: ANDREW DALAL Address: [address] [place] [address] Name: TARA LEI Address: [address] [place] [address]
--- OUTSIDE RECORDS SUMMARY | 2024-03-11 05:45 | XMS_ITS | Continuity of Care Document ---
Author Organization [facility] Address [address] [place] [address]- Care Team Providers Care Mailroom Supervisor Name Role Phone Brian Yusuf NP Primary Care Physician [phone] Encounter [place] Date(s): 03/11/20 - 04/10/20 [facility] [address] [place] [address]- [facility] Attending Physician: Lon Castellanos Admitting Physician: Lon Castellanos Referring Physician: Lon Castellanos Allergies, Adverse Reactions, Alerts Substance Reaction Severity [...] Refuses 1Result Comment: Patient changed mind Medications acetaminophen 325 mg oral tablet 975 mg, By Mouth, 3 times a day, Refills 0, Maintenance, 04/02/20 13:44:00 EDT Start Date: 04/02/20 Status: Ordered apixaban 5 mg oral tablet 1 tablet = 5 mg, By Mouth, 2 times a day, Maintenance, 03/23/20 10:39:00 EDT, Tablet Start Date: 03/23/20 Status: Ordered atorvastatin 20 mg oral tablet 1 tablet = 20 mg, By Mouth, Daily, 0 Refills, Maintenance, 10/18/19 9:03:00 EST Start Date: 10/18/19 Status: Ordered bisacodyl 10 mg rectal suppository 1 supp = 10 mg, Rectally, Daily, PRN Constipation, 0 Refills, Maintenance, 04/02/20 13:44:00 EDT, Suppository Start Date: 04/02/20 Status: Ordered Calcium Citrate 315 mg + Vitamin D 250IU Tablet 1 tablet = 315 mg, By Mouth, Every 6 hours, 0 Refills, Maintenance, 04/02/20 13:44:00 EDT, Tablet Start Date: 04/02/20 Status: Ordered Docusate Sodium Capsule 100 mg, 1, capsule, By Mouth, 2 times a day, Refills 0, Maintenance, 04/02/20 13:44:00 EDT Start Date: 04/02/20 Status: Ordered Flovent 110 mcg Inhaler HFA 1, puffs, Inhalation, 2 times a day, Refills 0, Maintenance, 04/07/19 14:15:55 EDT, Inhaler Start Date: 04/07/19 Status: Ordered hydrochlorothiazide 12.5 mg oral tablet 1 tablet = 12.5 mg, By Mouth, Daily, 0 Refills, Maintenance, 10/18/19 9:04:00 EST Start Date: 10/18/19 Status: Ordered ibuprofen 600 mg oral tablet 600 mg, 1, tablet, By Mouth, 3 times a day, PRN, Refills 0, Maintenance, Pain , Mild, 04/02/20 13:44:00 EDT Start Date: 04/02/20 Status: Ordered methadone 10 mg oral tablet = 60 mg, By Mouth, Daily, 0 Refills, Maintenance, 12/30/19 14:44:00 EDT, Tablet, Partial fill upon patient request Start Date: 12/30/19 Status: Ordered Milk of Magnesia Liquid 30 mL, By Mouth, Daily, PRN Constipation, 0 Refills, Maintenance, 04/02/20 13:44:00 EDT, Suspension Start Date: 04/02/20 Status: Ordered MiraLax Powder 1 pack/packet = 17 Gm, By Mouth, Daily, 0 Refills, Maintenance, 04/02/20 13:45:00 EDT, Powder Start Date: 04/02/20 Status: Ordered pantoprazole 40 mg oral delayed release tablet = 40 mg, By Mouth, Daily, 0 Refills, Maintenance, 04/02/20 13:45:00 EDT, EC Tablet Start Date: 04/02/20 Status: Ordered senna 187 mg oral tablet 2 tablet = 17.2 mg, By Mouth, Daily at bedtime, 0 Refills, Maintenance, 04/02/20 13:45:00 EDT, Tablet Start Date: 04/02/20 Status: Ordered Ventolin 90 mcg Inhaler 1, puffs, Inhalation, Every 4 hours, PRN, Refills 0, Maintenance, 04/07/19 14:16:53 EDT, Inhaler Start Date: 04/07/19 Status: Ordered Problem List Condition Effective Dates Status Health Status Inform ant Alcohol abuse(Confirmed) Active Ankle fracture(Confirmed) Active Methadone dependence(Confirmed) Active Chronic narcotic use(Confirmed) Active Social History Social History Type Response Smoking Status 5-9 cigarettes (betw een 1/4 to 1/2 pack)/day in last 30 days entered on: 12/28/19 Sex
--- OUTSIDE RECORDS SUMMARY | 2024-03-11 05:45 | XMS_ITS | Continuity of Care Document ---
Author Organization [facility] Address [address] [place] [address]- Care Team Providers Care Digital Campaign Manager Name Role Phone Madelin NAVARRO, Brian Primary Care Physician Encounter [facility] Date(s): 08/07/19 - 10/10/19 [facility] [address] [place] [address]- [facility] Attending Physician: Miguel Gardner MD Admitting Physician: Miguel Gardner MD Referring Physician: Christine NAVARRO, Regine Allen Allergies, Adverse Reactions, Alerts Substance Reaction Severity [...] EST, Tablet Start Date: 09/24/19 Status: Ordered docusate sodium 100 mg oral capsule 100 mg, 1, capsule, By Mouth, 2 times a day, # 60 capsule, Refills 0, Tot. Refills 0, Maintenance, 07/04/19 14:06:41 EDT, Print Requisition Start Date: 07/04/19 Status: Ordered Flovent 110 mcg Inhaler HFA 1, puffs, Inhalation, 2 times a day, Refills 0, Maintenance, 04/07/19 14:15:55 EDT, Inhaler Start Date: 04/07/19 Status: Ordered ibuprofen 400 mg oral tablet 400 mg, 1, tablet, By Mouth, 3 times a day, PRN, Refills 0, Maintenance, Pain , Moderate, 09/24/19 10:45:47 EST Start Date: 09/24/19 Status: Ordered Methadone See Instructions, 65 mg By Mouth Daily, 0 Refills, Maintenance, 04/07/19 14:11:03 EDT Start Date: 04/07/19 Status: Ordered montelukast 10 mg oral tablet 10 mg, 1, tablet, By Mouth, Daily, Refills 0, Maintenance, 04/07/19 14:11:38 EDT Start Date: 04/07/19 Status: Ordered nicotine 14 mg/24 hr transdermal film, extended release 1 patch, Topically, Daily, for 30 days, # 30 patch, 0 Refills, Acute 10/24/19 10:58:13 EST, 09/24/19 10:58:13 EST, Patch, 1 patch Topically Daily,x30 days, 165, cm, 09/23/19 15:51:56 EST, Height, 93,kg, 09/14/19 20:59:05 EST, Dry Weight Start Date: 09/24/19 Stop Date: 10/24/19 Status: Ordered Remove Patch 1 each, Topically, Daily, 0 Refills, Maintenance, Patch Start Date: 09/24/19 Status: Ordered risperiDONE 1 mg oral tablet 2 mg, 2, tablet, By Mouth, Daily, # 30 tablet, Refills 0, Maintenance, 04/07/19 14:17:20 EDT Start Date: 04/07/19 Status: Ordered Tylenol 325 mg oral tablet 650 mg, 2, tablet, By Mouth, Every 6 hours, PRN, Refills 0, Maintenance, Temperature, 09/24/19 10:45:45 EST Start Date: 09/24/19 Status: Ordered Ventolin 90 mcg Inhaler 1, puffs, Inhalation, Every 4 hours, PRN, Refills 0, Maintenance, 04/07/19 14:16:53 EDT, Inhaler Start Date: 04/07/19 Status: Ordered Problem List Condition Effective Dates Status Health Status Inform ant Alcohol abuse(Confirmed) Active Ankle fracture(Confirmed) Active Methadone dependence(Confirmed) Active Chronic narcotic use(Confirmed) Active
--- OUTSIDE RECORDS SUMMARY | 2024-03-11 05:45 | XMS_ITS | Continuity of Care Document ---
Author Organization [facility] ter Address [address] [place] [address]- Care Team Providers Care Supervisor Fireworks Assembly Name Role Phone Madelin NAVARRO, Brian Primary Care Physician [phone] Encounter [facility] Date(s): 05/08/21 - 05/08/[address] [address]- Encounter Diagnosis Cellulitis(Final) - 05/08/21 Discharge Disposition: A-D/C Home Attending Physician: Aleja Silva MD Admitting Physician: Aleja Silva MD Referring Physician: Not on Staff, Referring MD Allergies, Adverse Reactions, Alerts Substance Reaction Severity [...] 9:03:00 EST Start Date: 10/18/19 Status: Ordered Bactrim DS 800 mg-160 mg oral tablet 1 tablet, By Mouth, Every 12 hours, for 7 days, # 14 tablet, 0 Refills, Acute 05/15/21 19:23:00 EDT, 05/08/21 19:23:00 EDT, Tablet, [facility]/pharmacy #[id number], Partial fill upon patient request if the prescription is for a schedule II opioid drug., 1 tablet B... Start Date: 05/08/21 Stop Date: 05/15/21 Status: Ordered bisacodyl 10 mg rectal suppository [...] 13:44:00 EDT Start Date: 04/02/20 Status: Ordered Keflex monohydrate 500 mg oral capsule 1 capsule = 500 mg, By Mouth, 4 times a day, for 10 days, # 40 capsule, 0 Refills, Acute 05/18/21 4:29:00 EDT, 05/08/21 4:29:00 EDT, Capsule, [facility], Partial fill upon patient request if the prescription is for a schedule II opioid d... Start Date: 05/08/21 Stop Date: 05/18/21 Status: Ordered Keflex monohydrate 500 mg oral capsule 1 capsule = 500 mg, By Mouth, 4 times a day, for 7 days, # 28 capsule, 0 Refills, Acute 05/15/21 4:53:00 EDT, 05/08/21 4:53:00 EDT, Capsule, [facility]/pharmacy #[id number], Partial fill upon patient request if the prescription is for a schedule II opioid drug., 1... Start Date: 05/08/21 Stop Date: 05/15/21 Status: Ordered methadone 10 mg oral tablet [...] to oldest [Reference Range]: 1 2 3 Oxygen Saturation [94-100 %] 99 % (05/08/21 7:44 PM) 94 % (05/08/21 5:13 PM) 94 % (05/08/21 4:17 PM) Pulse Rate [55-90 bpm] 70 bpm (05/08/21 7:44 PM) 64 bpm (05/08/21 5:13 PM) 94 bpm *H* (05/08/21 4:17 PM) Blood Pressure [90-138/55-84 mm Hg] 134/80mm Hg (05/08/21 7:44 PM) 140/69mm Hg *H* (05/08/21 5:13 PM) Respiratory Rate [16-30 br/min] 18 br/min (05/08/21 7:44 PM) 16 br/min (05/08/21 5:13 PM) Temperature [96.8-100.4 DegF] 98.0 DegF (05/08/21 7:44 PM) 98.2 DegF (05/08/21 5:13 PM) Mode of Delivery (Oxygen) Room air (05/08/21 7:44 PM) Room air (05/08/21 5:13 PM) Temperature Route Oral (05/08/21 7:44 PM) Oral (05/08/21 5:13 PM) Social History Social History Type Response Smoking Status 5-9 cigarettes (betw een 1/4 to 1/2 pack)/day in last 30 days entered on: 12/28/19 Sex
--- OUTSIDE RECORDS SUMMARY | 2024-03-11 05:45 | XMS_ITS | Continuity of Care Document ---
Author Organization [facility] Address [address] [place] [address]- Care Team Providers Care Cheese Wrapper Name Role Phone Brian Yuusf NP Primary Care Physician Encounter [facility] R [id number] Date(s): 10/29/19 - 11/08/19 [facility] [address] [place] [address]- [facility] Attending Physician: Lon Castellanos Admitting Physician: Lon Castellanos Referring Physician: AdmtrLon Allergies, Adverse Reactions, Alerts Substance Reaction Severity [...] EST, Tablet Start Date: 09/24/19 Status: Ordered aspirin 81 mg oral tablet 1 tablet = 81 mg, By Mouth, Daily, 0 Refills, Maintenance, 10/18/19 9:04:00 EST Start Date: 10/18/19 Status: Ordered atorvastatin 20 mg oral tablet [...] EST Start Date: 10/18/19 Status: Ordered ibuprofen 400 mg oral tablet 400 mg, 1, tablet, By Mouth, 3 times a day, PRN, Refills 0, Maintenance, Pain , Moderate, 09/24/19 10:45:47 EST Start Date: 09/24/19 Status: Ordered Loratadine 10 mg, By Mouth, Daily, Refills 0, Maintenance, 10/18/19 9:07:00 EST Start Date: 10/18/19 Status: Ordered Methadone See Instructions, 10 mg By Mouth Daily, 0 Refills, Maintenance, 04/07/19 14:11:03 EDT Start Date: 04/07/19 Status: Ordered Minipress 2 mg oral capsule [...] 9:09:00 EST Start Date: 10/18/19 Status: Ordered Tylenol 325 mg oral tablet [...]
--- OUTSIDE RECORDS SUMMARY | 2024-03-11 05:45 | XMS_ITS | Continuity of Care Document ---
Author Organization [facility] ter Address [address] [place] [address]- Care Team Providers Care Supervisor [employer] Name Role Phone Brian Yusuf NP Primary Care Physician [phone] [place] [facility] Date[place]s): 12/27/19 - 12/30/[address] [address]- [facility] Encounter Diagnosis Cellulitis(Final) - 12/27/19 Leg abscess(Final) - 12/27/19 Discharge Disposition: A-D/C Home Attending Physician: Christian Freedman MD Admitting Physician: Christian Freedman MD Referring Physician: Not on Staff, Referring [...] mind Medications acetaminophen 325 mg oral tablet 650 mg, By Mouth, Every 6 hours, # 100 tablet, Refills 0, Tot. Refills 0, Acute 01/13/20 12:05:00 EDT, 12/30/19 12:05:00 EDT, Print Requisition Start Date: 12/30/19 Stop Date: 01/13/20 Status: Ordered apixaban = 5 mg, By Mouth, 2 [...] 9:04:00 EST Start Date: 10/18/19 Status: Ordered Keflex monohydrate 500 mg oral capsule 1 capsule = 500 mg, By Mouth, 4 times a day, for 14 days, # 56 capsule, 0 Refills, Acute 01/13/20 12:06:00 EDT, 12/30/19 12:06:00 EDT, Capsule Start Date: 12/30/19 Stop Date: 01/13/20 Status: Ordered Loratadine 10 mg, By Mouth, [...] 9:05:00 EST Start Date: 10/18/19 Status: Ordered oxyCODONE 5 mg oral tablet See Instructions, PRN, 1/2-1 tablet By Mouth Every 4-6 hours, # 20 tablet, Refills 0, Tot. Refills 0, Acute 01/06/20 12:06:00 EDT, Pain , Moderate, 12/30/19 12:05:00 EDT, Instructions Replace Required Details, Print Requisition, Partial fill upon jose maria... Start Date: 12/30/19 Stop Date: 01/06/20 Status: Ordered Remove Patch 1 each, Topically, [...] Methadone dependence(Confirmed) Active Chronic narcotic use(Confirmed) Active Procedures Procedure Date Related Diagnosis Body Site Status Arthrocentesis, aspiration a nd/or injection, intermediate joint or bursa (eg, temporomandibular, acromioclavicular, wrist, elbow or ankle, olecranon bursa); without ultrasound guidance 1 12/28/19 Completed Incision (eg, osteomyelitis or bone abscess), leg or ankle 2 12/28/19 Complet ed 1Patient with end-stage DJD, and pain 2Left leg, prior ankle fracture with debridement and hardware removal With placement of calcium sulfate and vancomycin beads Results Orders for Microbiology Reports Name Date Anaerobic Culture (ANAEROBIC CULTURE) 12/28/19 Anaerobic Culture (ANAEROBIC CULTURE) 12/28/19 Tissue Culture w/ Gram Smear (TISSUE/BIO PSY CULT.) 12/28/19 Wound Deep Culture w/ Gram Smear (DEEP W OUND CULTURE) 12/28/19 Wound Deep Culture w/ Gram Smear 12/27/19 Microbiology Reports TEST:Anaerobic Culture STATUS:Unauthenticated BODY SITE: SOURCE:ANKLE, COLLECTED DATE/TIME:12/28/19 4:03 PM Anaerobic Culture SPECIMEN DESCRIPTION : ANKLE, LEFT SPECIAL REQUESTS : NONE CULTURE : NO ANAEROBES ISOLATED SO FAR. REPORT STATUS : PRELIMINARY REPORT TEST:Anaerobic Culture STATUS:Unauthenticated BODY SITE: SOURCE:ASPIRA COLLECTED DATE/TIME:12/28/19 4:03 PM Anaerobic Culture SPECIMEN DESCRIPTION : ASPIRATE LEFT ANKLE SPECIAL REQUESTS : NONE CULTURE : NO ANAEROBES ISOLATED SO FAR. REPORT STATUS : PRELIMINARY REPORT TEST:Tissue/Biopsy Culture STATUS:Unauthenticated BODY SITE: SOURCE:ANKLE, COLLECTED DATE/TIME:12/28/19 4:03 PM Tissue/Biopsy Culture SPECIMEN DESCRIPTION : ANKLE, LEFT SPECIAL REQUESTS : NONE GRAM STAIN : 1+ TISSUE CELLS 2+ POLYMORPHONUCLEAR LEUKOCYTES 3+ RBC'S NO ORGANISMS SEEN CULTURE : 2+ STAPHYLOCOCCUS AUREUS. REPORT STATUS : PRELIMINARY REPORT TEST:Deep Wound Culture STATUS:Unauthenticated BODY SITE: SOURCE:ASPIRA COLLECTED DATE/TIME:12/28/19 4:03 PM Deep Wound Culture SPECIMEN DESCRIPTION : ASPIRATE LEFT ANKLE SPECIAL REQUESTS : NONE GRAM STAIN : 2+ POLYMORPHONUCLEAR LEUKOCYTES 4+ RBC'S NO ORGANISMS SEEN CULTURE : NO GROWTH TO DATE REPORT STATUS : PRELIMINARY REPORT TEST:Deep Wound Culture STATUS:Auth (Verified) BODY SITE: SOURCE:ABSCES COLLECTED DATE/TIME:12/27/19 4:40 PM Deep Wound Culture SPECIMEN DESCRIPTION : ABSCESS ANKLE LT SPECIAL REQUESTS : NONE GRAM STAIN : 1+ RBC'S 1+ GRAM POSITIVE COCCI CULTURE : 2+ STAPHYLOCOCCUS AUREUS. REPORT STATUS : FINAL 12/30/2019 ORGANISM 2+ STAPHYLOCOCCUS AUREUS. METHOD MIN. INHIB. CONC. (MCG/ML) CIPROFLOXACIN SUSCEPTIBLE CLINDAMYCIN RESISTANT ERYTHROMYCIN RESISTANT INDUCIBLE CLINDAMYCI POSITIVE LEVOFLOXACIN SUSCEPTIBLE OXACILLIN SUSCEPTIBLE PENICILLIN RESISTANT RIFAMPIN SUSCEPTIBLE RIFAMPIN RIFAMPIN SHOULD NOT BE USED ALONE FOR ANTIMICROBIAL RIFAMPIN THERAPY. TETRACYCLINE RESISTANT TRIMETH/SULFAMETHOX SUSCEPTIBLE VANCOMYCIN SUSCEPTIBLE Radiology Reports * Exam Date Time Procedure Performing Provider Status 12/27/19 4:05 PM Ankle Min 3 Views Left Aliya Estrada; Auth (Verified) Notes: (Ankle Min 3 Views Left) Reason For Exam: Erythema RESULT: Ankle Min 3 Views Left Ankle Min 3 Views Left INDICATION: Erythema; Clinical Question(s): Osteomyelitis; Hx of Present Illness: Pt sent from [address] [place] [address] for ? L ankle wound infection; had surgery to ankle 2-3 mos ago with hardware for fx; pt denies fevers; Other Objective Findings: Pt A+Ox4, respirations even and unlabored, skin pale and moist, ambulating with crutches, + erythema and swelling to L ankle COMPARISON: 09/14/2019 FINDINGS: The bones appear demineralized. There are postsurgical and posttraumatic changes in the distal fibula. There are 4 screws in the distal tibia, unchanged in appearance. There is tibiotalar joint spacenarrowing and subchondral cystic change, similar to prior. There is lateral ankle soft tissue swelling. No soft tissue gas. No unexpected radiopaque foreign body. No new fracture. No bony destructivechange. There is an enthesophyte at the Achilles tendon insertion. There is a small plantar calcaneal spur. IMPRESSION: No evidence of osteomyelitis. WSN: [id number] Ordering Physician: Bryson Martinez Dictated By: Shayan Irving MD Dictated Date/Time: 12/27/19 4:11 pm Reviewed By: Shayan Irving MD Signed By: Shayan Irving MD Signed Date/Time: 12/27/19 4:11 pm Transcribed By: JESSICA Transcribed Date/Time: 12/27/19 4:09 pm Vital Signs Most recent to oldest [Reference Range]: 1 2 3 Height 165 cm (12/30/19 7:30 AM) 165 cm (12/30/19 3:27 AM) 165 cm (12/29/19 8:41 PM) Weight 82 kg (12/28/19 3:02 PM) 82 kg (12/28/19 1:12 AM) 90.9 kg (12/27/19 5:32 PM) Oxygen Saturation [94-100 %] 97 % (12/30/19 7:30 AM) 98 % (12/30/19 3:27 AM) 96 % (12/29/19 8:41 PM) Pulse Rate [55-90 bpm] 69 bpm (12/30/19 7:30 AM) 62 bpm (12/30/19 3:27 AM) 94 bpm *H* (12/29/19 8:41 PM) Body Mass Index [18.5-24.99] 30.12 *>HHI* (12/28/19 3:02 PM) 30.12 *>HHI* (12/28/19 1:12 AM) Blood Pressure [90-138/55-84 mm Hg] 141/82mm Hg *H* (12/30/19 7:30 AM) 144/81mm Hg *H* (12/30/19 3:27 AM) 137/86mm Hg (12/29/19 8:41 PM) Respiratory Rate [16-30 br/min] 16 br/min (12/30/19 3:22 PM) 16 br/min (12/30/19 3:22 PM) 16 br/min (12/30/19 2:22 PM) Temperature [96.8-100.4 DegF] 98.6 DegF (12/30/19 7:30 AM) 97.8 DegF (12/30/19 3:27 AM) 98.1 DegF (12/29/19 8:41 PM) Liters per Minute 2 L/min (12/28/19 7:00 PM) 2 L/min (12/28/19 5:51 PM) 4 L/min (12/28/19 5:15 PM) Mode of Delivery (Oxygen) Room air (12/30/19 7:30 AM) Room air (12/30/19 3:27 AM) Room air (12/29/19 8:41 PM) Blood pressure sites Arm, left (12/30/19 7:30 AM) Arm, left (12/30/19 3:27 AM) Arm, right (12/29/19 8:41 PM) Temperature Route Oral (12/30/19 7:30 AM) Oral (12/30/19 3:27 AM) Oral (12/29/19 8:41 PM) Dry Weight 82 kg (12/28/19 1:12 AM) 90.9 kg (12/27/19 5:32 PM) 90.9 kg (12/27/19 1:53 PM) Weight Obtained Via Standing scale (12/27/19 1:12 PM) Dry Weight Obtained Via Standing scale (12/27/19 1:12 PM) Sensory deficits None (12/28/19 1:12 AM) Mobility assistance Partial assistance (12/28/19 1:12 AM) Social History Social History Type Response Smoking Status 5-9 cigarettes (betw een 1/4 to 1/2 pack)/day in last 30 days entered on: 12/28/19 Sex
--- OUTSIDE RECORDS SUMMARY | 2024-03-11 05:45 | XMS_ITS | Continuity of Care Document ---
Author Organization [facility] ter Address [address] [place] [id number]- Care Team Providers Care Production Weigher Name Role Phone Not on Staff, PCP Primary Care Physician Unavail able Encounter [facility] Date(s): 02/21/23 - 02/27/[address] [address]- Encounter Diagnosis Wound of left ankle(Final) - 02/21/23 Chronic osteomyelitis of left ankle with draining sinus(Discharge Diagnosis) - 02/26/23 Post-traumatic arthritis of left ankle(Discharge Diagnosis) - 02/26/23 Discharge Disposition: A-Transfer VNA/Home Health Attending Physician: Christian Freedman MD Admitting Physician: Cali Christina MD Referring Physician: Not on Staff, Referring MD Allergies, Adverse Reactions, Alerts No Known Allergies Immunizations Given and Recorded Vaccine Date Status Refusal Reason [id number] bivalent booster vax 10/03/22 Recorded SARS-CoV-2 (COVID-19) [...] Refuses 1Result Comment: Patient changed mind Medications aspirin 325 mg oral delayed release tablet 325 mg, 1, tablet, By Mouth, Daily, # 30 tablet, Refills 0, Tot. Refills 0, Maintenance, 02/26/23 13:24:00 EDT, Route to Pharmacy Electronically, [facility], Partial fill upon patient request if the prescription is for a schedule II opio... Start Date: 02/26/23 Status: Ordered Colace sodium 100 mg oral capsule 100 mg, 1, capsule, By Mouth, 2 times a day, # 20 capsule, Refills 0, Tot. Refills 0, Maintenance, 02/26/23 13:23:00 EDT, Route to Pharmacy Electronically, [facility], Partial fill uponpatient request if the prescription is for a schedu... Start Date: 02/26/23 Stop Date: 03/08/23 Status: Ordered doxycycline monohydrate 100 mg oral capsule 1 capsule = 100 mg, By Mouth, 2 times a day, for 6 week(s), # 84 capsule, 0 Refills, Acute 04/09/2313:25:00 EDT, 02/26/23 13:25:00 EDT, [facility], Partial fill upon patient request ifthe prescription is for a schedule II opioid drug.,... Start Date: 02/26/23 Stop Date: 04/09/23 Status: Ordered levalbuterol 45 mcg/inh inhalation aerosol [...] patient request Start Date: 12/30/19 Status: Ordered oxyCODONE 5 mg oral tablet 5 mg, Tablet, By Mouth, Every 4 hours for 7 days, PRN for Pain , Moderate, Routine, 02/21/23 2:44:00 EDT, Stop date 02/28/23 2:43:00 EDT Start Date: 02/21/23 Stop Date: 02/27/23 Status: Discontinued oxyCODONE 5 mg oral tablet See Instructions, PRN, 1 tablet By Mouth Every 4-6 hours prn pain, # 30 tablet, Refills 0, Tot. Refills 0, Acute 03/03/23 13:24:00 EDT, Pain , Moderate, 02/26/23 13:24:00 EDT, Instructions Replace Required Details, Route to Pharmacy Electronically, [facility]. Start Date: 02/26/23 Stop Date: 03/03/23 Status: Ordered Tylenol 325 mg oral tablet 975 mg, 3, tablet, By Mouth, Every 8 hours, # 60 tablet, Refills 0, Tot. Refills 0, Acute 03/05/23 13:23:00 EDT, 02/26/23 13:23:00 EDT, Route to Pharmacy Electronically, [facility], Partial fill upon patient request if the prescription i... Start Date: 02/26/23 Stop Date: 03/05/23 Status: Ordered Problem List Condition Confirmation Course Effective Dates Status Health St atus Informant Alcohol abuse Confirmed Active Ankle fracture Confirmed Active Methadone dependence Confirmed Active Chronic narcotic use Confirmed Active Diagnosis Diagnosis Type Effective Dates Health Status Clinical Service Informant Chronic osteomyelitis of left ankle with draining sinus Discharge Diagnosis 02/26/23 Non-Specified Post-traumatic arthritis of left ankle Discharge Diagnosis 02/26/23 Non-Specified Procedures Procedure Date Related Diagnosis Body Site Status Incision (eg, osteomyelitis or bone abscess), leg or ankle 1 02/24/23 [facility] ed Incision (eg, osteomyelitis or bone abscess), leg or ankle 2 02/21/23 [facility] ed 1left ankle - lateral and anterior wounds 2left ankle - lateral wound/ fibula; syndesmoosis/synostosis, and joint (separate incision Results Orders for Microbiology Reports Name Date Anaerobic Culture (ANAEROBIC CULTURE) 02/24/23 Tissue Culture w/ Gram Smear (TISSUE/BIO PSY CULT.) 02/24/23 AFB Culture w/ AFB Smear, Nonrespiratory (ACID FAST CULT,NON-RESP) 02/21/23 Anaerobic Culture (ANAEROBIC CULTURE) 02/21/23 Tissue Culture w/ Gram Smear (TISSUE/BIO PSY CULT.) 02/21/23 Wound Deep Culture w/ Gram Smear (Cultur e Wound Deep w/ Gram Smear) 02/21/23 Blood Culture 02/20/23 Blood Culture #2 02/20/23 Microbiology Reports TEST:Anaerobic Culture STATUS:Unauthenticated BODY SITE: SOURCE:Blood COLLECTED DATE/TIME:02/24/23 1:07 PM Anaerobic Culture SPECIMEN DESCRIPTION : BLOOD LEFT ANKLE JOINT SPECIAL REQUESTS : NONE CULTURE : NO ANAEROBES ISOLATED SO FAR. REPORT STATUS : PRELIMINARY REPORT TEST:Tissue/Biopsy Culture STATUS:Auth (Verified) BODY SITE: SOURCE:Blood COLLECTED DATE/TIME:02/24/23 1:07 PM Tissue/Biopsy Culture SPECIMEN DESCRIPTION : BLOOD LEFT ANKLE JOINT SPECIAL REQUESTS : NONE GRAM STAIN : 1+ WHITE BLOOD CELLS 2+ RBC'S NO ORGANISMS SEEN CULTURE : NO GROWTH 2 DAYS REPORT STATUS : FINAL 02/26/2023 TEST:Anaerobic Culture STATUS:Auth (Verified) BODY SITE: SOURCE:TISSUE1 COLLECTED DATE/TIME:02/21/23 3:33 PM Anaerobic Culture SPECIMEN DESCRIPTION : TISSUE LT ANKLE SPECIAL REQUESTS : NONE CULTURE : NO ANAEROBES ISOLATED REPORT STATUS : FINAL 02/23/2023 TEST:AFB Culture w/AFB Smear, Non-Respiratory STATUS:Unauthenticated BODY SITE: SOURCE:TISSUE1 COLLECTED DATE/TIME:02/21/23 3:33 PM AFB Culture w/AFB Smear, Non-Respiratory SPECIMEN DESCRIPTION : TISSUE LT ANKLE SPECIAL REQUESTS : NONE DIRECT EXAM : NO ACID FAST BACILLI SEEN ON DIRECT SMEAR, TEST PERFORMED AT [facility] No acid fast bacilli seen on concentrated smear. Per [facility] protocol, this specimen was concentrated prior to smear preparation. [facility], [address] [place] [id number]. CULTURE : SPECIMEN SENT TO DEPT OF PUBLIC HEALTH, [place], [place] REPORT STATUS : PRELIMINARY REPORT TEST:Tissue/Biopsy Culture STATUS:Auth (Verified) BODY SITE: SOURCE:TISSUE1 COLLECTED DATE/TIME:02/21/23 3:33 PM Tissue/Biopsy Culture SPECIMEN DESCRIPTION : TISSUE LT ANKLE SPECIAL REQUESTS : NONE GRAM STAIN : 1+ TISSUE CELLS 3+ RBC'S 1+ WHITE BLOOD CELLS NO ORGANISMS SEEN CULTURE : 2+ STAPHYLOCOCCUS AUREUS. This isolate was identified using Maldi-TOF system These AST results were performed on the Microscan ID and AST system CRITICAL VALUE CALLED AND VERIFIED BY READBACK FOR: TISSUE CULTURE 2+ HOWIE TO NACHO SOTOMAYOR [id number] ON 02/23/23 AT 09:20 BY Korem [id number] REPORT STATUS : FINAL 02/24/2023 ORGANISM 2+ STAPHYLOCOCCUS AUREUS. This isolate was identified using Maldi-TOF system These AST results were performed on the Microscan ID and AST system METHOD MIN. INHIB. CONC. (MCG/ML) CIPROFLOXACIN SUSCEPTIBLE CLINDAMYCIN SUSCEPTIBLE ERYTHROMYCIN SUSCEPTIBLE LEVOFLOXACIN SUSCEPTIBLE OXACILLIN SUSCEPTIBLE PENICILLIN RESISTANT RIFAMPIN SUSCEPTIBLE RIFAMPIN RIFAMPIN SHOULD NOT BE USED ALONE FOR ANTIMICROBIAL RIFAMPIN THERAPY. TETRACYCLINE SUSCEPTIBLE TRIMETH/SULFAMETHOX SUSCEPTIBLE VANCOMYCIN SUSCEPTIBLE TEST:Deep Wound Culture STATUS:Auth (Verified) BODY SITE: SOURCE:SWAB1 COLLECTED DATE/TIME:02/21/23 12:12 AM Deep Wound Culture SPECIMEN DESCRIPTION : SWAB ANKLE LT SPECIAL REQUESTS : NONE GRAM STAIN : 4+ POLYMORPHONUCLEAR LEUKOCYTES 4+ GRAM POSITIVE COCCI CULTURE : 4+ STAPHYLOCOCCUS AUREUS. This isolate was identified using Maldi-TOF system These AST results were performed on the Microscan ID and AST system REPORT STATUS : FINAL 02/23/2023 ORGANISM 4+ STAPHYLOCOCCUS AUREUS. This isolate was identified using Maldi-TOF system These AST results were performed on the Microscan ID and AST system METHOD MIN. INHIB. CONC. (MCG/ML) CIPROFLOXACIN SUSCEPTIBLE CLINDAMYCIN SUSCEPTIBLE ERYTHROMYCIN SUSCEPTIBLE LEVOFLOXACIN SUSCEPTIBLE OXACILLIN SUSCEPTIBLE PENICILLIN RESISTANT RIFAMPIN SUSCEPTIBLE RIFAMPIN RIFAMPIN SHOULD NOT BE USED ALONE FOR ANTIMICROBIAL RIFAMPIN THERAPY. TETRACYCLINE SUSCEPTIBLE TRIMETH/SULFAMETHOX SUSCEPTIBLE VANCOMYCIN SUSCEPTIBLE TEST:Blood Culture, Second Order STATUS:Auth (Verified) BODY SITE: SOURCE:Blood COLLECTED DATE/TIME:02/20/23 11:38 PM Blood Culture, Second Order SPECIMEN DESCRIPTION : BLOOD NO SITE SPECIAL REQUESTS : NONE CULTURE : NO GROWTH 5 DAYS. REPORT STATUS : FINAL 02/26/2023 TEST:Blood Culture STATUS:Auth (Verified) BODY SITE: SOURCE:Blood COLLECTED DATE/TIME:02/20/23 11:17 PM Blood Culture SPECIMEN DESCRIPTION : BLOOD LT AC SPECIAL REQUESTS : NONE CULTURE : NO GROWTH 5 DAYS. REPORT STATUS : FINAL 02/26/2023 Radiology Reports * Exam Date Time Procedure Performing Provider Status 02/21/23 1:22 AM Ankle Min 3 Views Left Nia , Carmelo; Au th (Verified) Notes: (Ankle Min 3 Views Left) Reason For Exam: with Pain;Trauma RESULT: Ankle Min 3 Views Left Left ankle 3 views dated February 21, 2023. Comparison films are from November 10, 2021. HISTORY: Pain. FINDINGS: This examination shows soft tissue gas adjacent to the lateral malleolus. There is a deformity of the distal fibular metadiaphysis consistent with an old healed fracture. There is significant loss of joint space and remodeling of the talotibial articulation. A large talar spur is once again demonstrated. There is a joint effusion. Calcifications present at the insertion of the Achilles tendon. IMPRESSION: Evidence of old trauma. Severe arthritic changes. No evidence of acute fracture or dislocation. Soft tissue gas which may be posttraumatic or infectious in etiology. Examination [address]. Thank you for allowing me to participate in the care of this patient. WSN: [id number] Ordering Physician: Roshan Chowdary Dictated By: Rick Cotto MD Dictated Date/Time: 02/21/23 7:56 am Reviewed By: Rick Cotto MD Signed By: Rick Cotto MD Signed Date/Time: 02/21/23 7:56 am Transcribed By: JESSICA Transcribed Date/Time: 02/21/23 7:56 am Vital Signs Most recent to oldest [Reference Range]: 1 2 3 Height 165 cm (02/27/23 11:45 AM) 165 cm (02/27/23 4:11 AM) 165 cm (02/26/23 7:52 PM) Weight 73 kg (02/24/23 11:22 AM) 73 kg (02/21/23 7:47 PM) 73 kg (02/21/23 2:07 PM) Oxygen Saturation [94-100 %] 96 % (02/27/23 11:45 AM) 97 % (02/27/23 11:10 AM) 99 % (02/27/23 7:21 AM) Pulse Rate [55-90 bpm] 85 bpm (02/27/23 11:45 AM) 80 bpm (02/27/23 11:10 AM) 79 bpm (02/27/23 7:21 AM) Body Mass Index [18.5-24.99 kg/m2] 26.81 kg/m2 *H* (02/24/23 11:22 AM) 26.81 kg/m2 *H* (02/21/23 7:47 PM) 26.81 kg/m2 *H* (02/21/23 2:07 PM) Blood Pressure [90-138/55-84 mm Hg] 124/89mm Hg (02/27/23 11:45 AM) 132/83mm Hg (02/27/23 11:10 AM) 127/78mm Hg (02/27/23 7:21 AM) Respiratory Rate [16-30 br/min] 18 br/min (02/27/23 11:57 AM) 18 br/min (02/27/23 11:45 AM) 18 br/min (02/27/23 11:10 AM) Temperature [96.8-100.4 DegF] 97.6 DegF (02/27/23 11:45 AM) 97.8 DegF (02/27/23 11:10 AM) 97.6 DegF (02/27/23 7:21 AM) Liters per Minute 2 L/min (02/25/23 11:00 AM) 2 L/min (02/25/23 7:00 AM) 6 L/min (02/24/23 1:15 PM) Mode of Delivery (Oxygen) Room air (02/27/23 11:45 AM) Room air (02/27/23 11:10 AM) Room air (02/27/23 7:21 AM) Blood pressure sites Arm, right (02/27/23 11:45 AM) Arm, right (02/27/23 11:10 AM) Arm, right (02/27/23 7:21 AM) Temperature Route Oral (02/27/23 11:45 AM) Oral (02/27/23 11:10 AM) Oral (02/27/23 7:21 AM) Dry Weight 73 kg (02/21/23 7:47 PM) 73 kg (02/21/23 2:07 PM) 73 kg (02/21/23 8:43 AM) Weight Obtained Via Patient/family state d (02/20/23 11:02 PM) Dry Weight Obtained Via Patient/family s tated (02/20/23 11:02 PM) Social History Social History Type Response Smoking Status 5-9 cigarettes (betw een 1/4 to 1/2 pack)/day in last 30 days entered on: 12/28/19 Sex Hospital Progress note * Nicolette Castaneda: PERFORM, SIGN, VERIFY Event Display: Progress Note Hospital Authored Date: [id number] Patient: KIT MONGE Age: 57 years Sex: Male : 1965 Associated Diagnoses: None Author: Meaghan BRASWELL, Nicolette Pantoja's last dose of Methadone was 02/27/23 at 8:49 am. He received 90 mg of Methadone. * Ethan Escobedo RN: PERFORM, SIGN, VERIFY Event Display: Progress Note Hospital Authored Date: Patient: KIT MONGE Age: 57 years Sex: Male : 1965 Associated Diagnoses: None Author: Ethan Escobedo RN Findings Problem Related to Alteration in Comfort : Alteration in Comfort/new 02/27/2023 7:17 EDT Alteration in Comfort Related to Disease process, Injury, Surgery Goals & Outcomes: Comfort Pt will report acceptable level of comfort & pain control, Pt will state importance of adhering to pain strategy regime, Pt will demonstrate necessary skills to manage pain, Non-verbal indicators will indicate comfort/pain control Interventions Implemented: Comfort Assess pain using appropriate pain scale/tools, Assess aggravating factors & prevent them accordingly, Assess alleviating factors & promote them accordingly BH Goals/Interventions, Comfort Yes Comfort, Problem Start 02/22/2023 4:58 Reviewed plan with, Comfort Patient Patient Progression, Comfort Pt progressing according to plan Comfort, Problem Ongoing Yes . Narrative/Incidental Pt A&O x4. Reported 8 out of 10 pain to left ankle, medicated appropriately. Lung sounds CTA inall lobes, denies SOB or cough or chest pain. No edema, +pp and dorsi/plantar flexion bilaterally. +CMS to all extremities, denies SOB or cough or chest pain. GI WNL. Last BM 02/26. Voiding clear yellow urine. Alan wrap to left ankle c/d/i. Ambulates with standby assist. Bed locked in lowest position,call norton within reach using appropriately. Report given to discharge unit.. Discharge Information Case Management Discharge Plan : Case Management Discharge Plan Data 02/24/2023 15:11 EDT Discharge Level of Care at Discharge Homehealth/VNA Discharge VNA/Hospice/Home Care [facility] [phone] Mode of Transportation Arranged car Name of Agency #1 [facility] City Attorney #1 Intake Service Categories #1 Fpc, Wound Care Service Comments #1 The VNA will call you to set up an appointment. Please call the agency with anyquestions Rehabilitation Discharge : Rehab Discharge Index 02/26/2023 9:35 EDT Walker: distance 10-20 02/23/2023 9:06 EDT Comments on treatment indicated 57M (micronesian speaking) s/p I&D Left ankle on 02/21 (Dr. Freedman). WBAT LLE. Lives in alf w/o stairs. Tenative return to OR 02/24. Rec return to alf c RW. Walker: distance >50 Distance pt will ambulate >120' Full chart review completed Yes Hospital course Hospital course Other findings Mod complexity 11/24 PMH and reason for hospitalization Plan of care PT Gait training, Transfer training, Therapeutic exercise, Functional Activities, Balance training * Krissy Cha RN: PERFORM, SIGN, VERIFY Event Display: Progress Note Hospital Authored Date: [id number] Patient: KIT MONGE Age: 57 years Sex: Male : 1965 Associated Diagnoses: None Author: Krissy Cha RN Findings Problem Related to Alteration in Comfort : Alteration in Comfort/new 02/26/2023 22:00 EDT Alteration in Comfort Related to Disease process, Injury, Surgery Goals & Outcomes: Comfort Pt will report acceptable level of comfort & pain control, Pt will state importance of adhering to pain strategy regime, Pt will demonstrate necessary skills to manage pain, Non-verbal indicators will indicate comfort/pain control Interventions Implemented: Comfort Assess pain using appropriate pain scale/tools, Assess aggravating factors & prevent them accordingly, Assess alleviating factors & promote them accordingly BH Goals/Interventions, Comfort Yes Comfort, Problem Start 02/22/2023 4:58 Reviewed plan with, Comfort Patient Patient Progression, Comfort Pt progressing according to plan Comfort, Problem Ongoing Yes . Nursing Data Integumentary Data. : Integumentary Data. 02/26/2023 23:01 EDT Skin Integrity Not intact Activity Walks occasionally Mobility Slightly limited Integumentary WNL except . Vital Signs : VITAL SIGNS SECTION 02/26/2023 19:52 EDT Early Warning Score 2.00 02/26/2023 19:52 EDT Temperature 97.6 DegF Temperature Route Oral Pulse Rate 81 bpm Respiratory Rate 17 br/min Systolic Blood Pressure 113 mm Hg Diastolic Blood Pressure 77 mm Hg Blood pressure sites Arm, right Mean Arterial Pressure 89 mm Hg Pulse Pressure 36 mm Hg Oxygen Saturation 99 % Mode of Delivery (Oxygen) Room air . Narrative/Incidental Patient is alert and oriented X3. VSS. Maintaining pain control with scheduled and PRN medications.Lungs are clear on room air. patient has +pedal pulses and no edema. Refusing compression boots. Patient has +bowel sounds X4 quadrants. No nausea or vomiting. Abdomen is soft and non-tender. Tolerating a regular diet. Voiding in urinal without difficulty. Remains WBAT to LLE. Out of bed with standby assist. Left ankle with alan wrap in place. Patient is resting comfortably at this time with call norton in reach and bed in locked, lowest position. . Discharge Information Case Management Discharge Plan : Case Management Discharge Plan Data 02/24/2023 15:11 EDT Discharge Level of Care at Discharge Homehealth/VNA Discharge VNA/Hospice/Home Care [facility] [phone] Mode of Transportation Arranged car Name of Agency #1 [facility] City Attorney #1 Intake Service Categories #1 Fpc, Wound Care Service Comments #1 The VNA will call you to set up an appointment. Please call the agency with anyquestions Rehabilitation Discharge : Rehab Discharge Index 02/26/2023 9:35 EDT Walker: distance 10-20 02/23/2023 9:06 EDT Comments on treatment indicated 57M (micronesian speaking) s/p I&D Left ankle on 02/21 (Dr. Freedman). WBAT LLE. Lives in alf w/o stairs. Tenative return to OR 02/24. Rec return to alf c RW. Walker: distance >50 Distance pt will ambulate >120' Full chart review completed Yes Hospital course Hospital course Other findings Mod complexity 2/2 PMH and reason for hospitalization Plan of care PT Gait training, Transfer training, Therapeutic exercise, Functional Activities, Balance training Note * Christy Hewitt RN: PERFORM Event Display: Discharge/Transfer Note Hospital Authored Date: [id number] Nursing Discharge Note Entered On: 02/27/2023 13:14 EDT Performed On: 02/27/2023 13:14 EDT by Christy Hewitt RN Nursing Discharge Note 2 Discharge Time : 02/27/2023 13:50 EDT Christy Hewitt RN - 02/27/2023 13:50 EDT Discharge Level of Care at Discharge : Homehealth/VNA Discharge VNA/Hospice/Home Care(v001) : [facility] [phone] Patient Left Unit Via : Wheelchair Patient Accompanied Off Unit with : Responsible adult DC Instructions Provided & Signed by Pt : Yes Patient Understands D/C Instructions : Yes Verbalized Understanding of D/C Plan By : Patient Patient Instructions Discharge Signed : Yes Did Pt have Specialty Bed or Wound Vac : No Christy Hewitt RN - 02/27/2023 13:14 EDT * Christy Hewitt RN: PERFORM Event Display: Patient Education/Instruction Authored Date: [id number] Inpatient Adult Discharge Instructions [address] [address] Name: KIT MONGE : 1965 Visit: 02/21/2023 02:18:00 Current Date: 02/27/2023 13:15 Account: [id number] Inpatient Adult Discharge Instructions We would like to thank you for allowing us to assist you with your healthcare needs. The following includes patient education materials and information regarding your injury/illness. Our entire staffstrives to provide an excellent experience for our patients and their families. PLEASE ENSURE YOU FOLLOW-UP PER THE INSTRUCTIONS BELOW! ?? YOUR OPINION IS IMPORTANT TO US! Please complete the survey you may receive by mail or email. Your feedback will be used to make improvements to the healthcare experiences of our patients and their families. Surveys are administered by [employer] ?? If further treatment with your primary care physician or another doctor is recommended, it is important for you to keep the appointment. Call your primary care physician or return to the Emergency Department immediately if your condition worsens, fails to improve, or new symptoms develop. If you need to find a doctor, you can call [facility] for a referral at [phone] or toll free at [phone] or log in to [email or web address].. ?? You can view and manage your care through the patient portal or by using a health care jaspreet of your choosing. [employer] is a website that allows you to securely view your medical information including your hospital discharge summary, office visit summaries, medications and follow-up visits. You can also request appointments, renew medications, and request access to your medical information using a health care jaspreet of your choosing, or just ask a question. You can enroll at [email or web address] or register during your next office visit. You have been discharged from [facility], Patient Care Unit: S3. If you have any questions regarding these instructions after you leave, please call us and we will be happy to assist you. [facility] Your Care Team Attending Physician Jasmina CORONADO, Christian Consulting Providers Rodrigue NAVARRO, Berna; Tony CORONADO, Tracey; Daryl CORONADO, Naomie Discharging Providers Meaghan BRASWELL, Nicolette Fan Reason for Your Visit Left Ankle Wound Your Diagnosis Ankle pain-swelling Anxiety Asthma Chronic osteomyelitis of left ankle with draining sinus,??Chronic osteomyelitis of left ankle with draining sinus Hypertension Methadone use Opiate dependence,??Opiate dependence Post-traumatic arthritis of left ankle,??Post-traumatic arthritis of left ankle Pre-op exam Tobacco use Wound of left ankle Tests Performed Below is a partial list of the tests performed during your hospitalization. You may have had other tests and procedures not included in this list. Please discuss all test results with your provider. Basic Metabolic Panel C-REACTIVE PROTEIN CBC CBC w/ Differential Comprehensive Metabolic Panel COVID-19 (Novel Coronavirus), Rapid PCR CRP ESR HOLD BLUE TUBE HOLD GREEN TUBE Lactate Level SEDIMENTATION RATE,AUTOMATED XR Ankle Min 3 Views Left Primary Care Provider Not on Staff, PCP Advance Directive Patient has a Designated Caregiver: No Discharge Vitals Temperature: 97.6 DegF Height: 165 cm Pulse Rate: 85 bpm Weight: 73 kg Respiratory Rate: 18 br/min Body Mass Index:??26.81 kg/m2??High Systolic Blood Pressure: 124 mm Hg Body surface area: 1.83 Diastolic Blood Pressure:??89 mm Hg??High ?? Oxygen Saturation: 96 % ?? Studies Pending All tests and labs ordered during this hospital stay have been completed unless listed below. Please discuss all pending results with your provider listed above in these instructions. ?? AFB Culture w/ AFB Smear, Nonrespiratory (ACID FAST CULT,NON-RESP) Add On Lab Order Anaerobic Culture What to do next Instructions From Your Doctor Please contact??Dr. Freedman' office with any further questions or concerns regarding your injury or surgery. ?? Elevate operative extremity to reduce swelling; keep bandages clean and dry when bathing/showering.?? Do not get wounds wet in the shower at this time. ?? No tub baths or other stagnant water (ie pools, hot tubs, etc) until incisions have healed, stapleshave been removed, and you have been cleared by your surgeon. ?? If any fever, chills, uncontrolled pain, or any other issues you feel may be urgent, do present, consult your physician and/or return to the Emergency Room. ?? You may resume your home medications as prescribed by your PCP. ?? Please take a laxative or stool softener, such as colace or milk of magnesia, as needed for constipation.?A prescription has been provided for you. ?? No driving or operating machinery until you are off of all narcotic medications, injury has healed,and you have been cleared by your surgeon. ?? Weight bearing as tolerated left leg when ambulating. ?? Encourage incentive spirometer/deep breathing. ?? Resume usual diet. ?? Anticipate 6 weeks of oral antibiotics.?You have been prescribed Doxycycline 100 mg twice per day for 6 weeks from the last OR visit. ?? While on Doxycycline you should avoid concurrent ingestion of divalent cation containing foods and compounds including milk, iron, Magnesium, Calcium and multivitamins at least 2 hours before and 2 hours after the antibiotic is taken as they can bind the antibiotic and prevent absorption. ?? Prolonged exposure to sun can cause a photosensitive rash and the patient should wear sunblock if they are going to be in the sun for long periods of time. ?? Take antibiotic on a full stomach. ? Discharge Orders You Need to Schedule the Following Appointments Follow Up with??Christian Freedman When??Within 1 to 2 weeks Why: Please contact office for F/U appointment information Where: [address] [place] [address], [address] [facility] [place] [address]- Business (1) Follow Up with??PCP Not on Staff When??In 0 days Discharge Medications KIT MONGE :1965 Visit Date:02/21/2023 Medications: Please continue your medications until treatment is completed or stopped by your provider. Medications not listed below should be discontinued. Discuss any questions related to medications with your provider. What How Much When Instructions Next Dose New Aspirin (aspirin 325 mg oral delayed release tablet) 1 tab(s) Oral Daily Pickup at [place] [address] 02/28 tomorrow morning New Doxycycline (doxycycline monohydrate 100 mg oral capsule) 1 capsule Oral Twice a day Duration: 6 week(s) Pickup at [place] [address] 02/27 tonight New Oxycodone (oxyCODONE 5 mg oral tablet) See instructions 1 tablet By Mouth Every 4-6 hours prn pain ?? Pickup at [place] [address] as needed, last dose at 12pm Changed Acetaminophen (Tylenol 325 mg oral tablet) 3 tab(s) Oral Every 8 hours Pickup at [place] [address] 02/27 at 3pm Changed Docusate (Colace sodium 100 mg oral capsule) 1 capsule Oral Twice a day Duration: 10 Days Pickup at [place] [address] 02/27 tonight Unchanged Levalbuterol (levalbuterol 45 mcg/ inh inhalation aerosol) 2 puff(s) Inhalation Every 4 hours as needed for for wheezing as needed Unchanged Methadone (methadone 10 mg oral tablet) 90 Milligram Oral Daily 02/28 at 8am, last dose was on 02/27 at 8:49am Pharmacy Information [facility] 3: [address], [place] [id number] [phone] ?? What How Much When Comments Stop Taking Albuterol (Ventolin 90 mcg Inhaler) 1 puff(s) Inhalation Every 4 hours as needed for Wheezing/Shortness of Breath Stop Taking apixaban (apixaban 5 mg oral tablet) 1 tab(s) Oral Twice a day Stop Taking Atorvastatin (atorvastatin 20 mg oral tablet) 1 tab(s) Oral Daily Stop Taking Bisacodyl (bisacodyl 10 mg rectal suppository) 1 suppository(ies) Per rectum Daily as needed for Constipation Stop Taking Calcium And Vitamin D Combination (Calcium Citrate 315 mg + Vitamin D 250IU Tablet) 315 Milligram Oral Every 6 hours Stop Taking Fluticasone (Flovent 110 mcg Inhaler HFA) 1 puff(s) Inhalation Twice a day Stop Taking Hydrochlorothiazide (hydrochlorothiazide 12.5 mg oral tablet) 1 tab(s) Oral Daily Stop Taking Ibuprofen (ibuprofen 600 mg oral tablet) 1 tab(s) Oral 3 times a day as needed for Pain , Mild Stop Taking Milk of Magnesia (Milk of Magnesia Liquid) 30 Milliliter Oral Daily as needed for Constipation Stop Taking Pantoprazole (pantoprazole 40 mg oral delayed release tablet) 40 Milligram Oral Daily Stop Taking Polyethylene Glycol 3350 (MiraLax Powder) 17 gram Oral Daily Stop Taking Senna (senna 187 mg oral tablet) 2 tab(s) Oral Daily at Bedtime Test Results Below is a partial list of the most recent Laboratory test results done prior to this discharge. You may have had other tests and procedures not included in this list. Please discuss all test resultswith your provider. Est Creatinine Clearance - 65.13 mL/min (02/23/2023) Basic Metabolic Panel (02/24/2023) ???Sodium - 137 mmol/L???Potassium - 4.6 mmol/L???Chloride - 99 mmol/L???Bicarbonate Level - 30 mmol/L???Anion Gap - 8???Glucose Level - 103 mg/dL???BUN - 19 mg/dL???Creatinine-Blood - 1.1 mg/dL???Estimated GFR Creatinine - 83 ML/MIN/1.73 M2???Calcium - 9.0 mg/dL C-REACTIVE PROTEIN (02/20/2023) ???C-Reactive Protein - 16.0 mg/dL CBC (02/24/2023) ???WBC - 9.0 k/mm3???RBC - 4.08 m/mm3???Hgb - 11.7 Gm/dL???Hct - 36.6 %???MCV - 89.7 femtoliters???MCH - 28.7 pg???MCHC - 32.0 g/dL???Platelet Count - 341 k/mm3???RDW-SD - 41.2 femtoliters???MPV - 9.1 femtoliters???Nucleated RBC (Automated) - 0.0 #/100 WBC'S???Abs. NRBC - 0.0 k/mm3 CBC w/ Differential (02/20/2023) ???WBC - 10.9 k/mm3???RBC - 3.98 m/mm3???Hgb - 11.9 Gm/dL???Hct - 36.5 %???MCV - 91.7 femtoliters???MCH - 29.9 pg???MCHC - 32.6 g/dL???Platelet Count - 311 k/mm3???RDW-SD - 42.1 femtoliters???MPV - 9.0 femtoliters???Nucleated RBC (Automated) - 0.0 #/100 WBC'S???Abs. NRBC - 0.0 k/mm3???Abs. Neut - 8.6 k/mm3???Abs. Lymph - 1.0 k/mm3???Abs. Mineral - 1.1 k/mm3???Abs. Eo - 0.1 k/mm3???Abs. Baso - 0.0 k/mm3???Neut % - 79.7 %???Lymph % - 9.1 %???Mineral % - 10.0 %???Eos % - 0.6 %???Baso % - 0.2 %???Imm Gran - 0.4 %???Abs. Imm Gran - 0.0 k/mm3 Comprehensive Metabolic Panel (02/20/2023) ???Sodium - 144 mmol/L???Potassium - 4.5 mmol/L???Chloride - 105 mmol/L???Bicarbonate Level - 29 mmol/L???Anion Gap - 10???Glucose Level - 114 mg/dL???BUN - 18 mg/dL???Creatinine-Blood - 1.0 mg/dL???Estimated GFR Creatinine - 85 ML/MIN/1.73 M2???Calcium - 9.3 mg/dL???Protein, Total - 6.4 Gm/dL???Albumin - 3.7 Gm/dL???AG Ratio - 1.4???Alkaline Phosphatase - 88 units/L???AST (SGOT) - 14 units/L???ALT (SGPT) - 16 units/L? ?Bilirubin, Total - <0.2 mg/dL COVID-19 (Novel Coronavirus), Rapid PCR (02/21/2023) ???COVID-19 by RT-PCR - NEGATIVE CRP (02/21/2023) ???C-Reactive Protein - 15.9 mg/dL ESR (02/21/2023) ???Sed Rate - 53 mm/hr HOLD BLUE TUBE (02/20/2023) ???Hold Blue Top - SPECIMEN DISCARDED AFTER 4 HOURS. HOLD GREEN TUBE (02/20/2023) ???Hold Green Top - SPECIMEN DISCARDED AFTER 1 WEEK Lactate Level (02/20/2023) ???Lactate - 1.4 mmol/L SEDIMENTATION RATE,AUTOMATED (02/20/2023) ???Sed Rate - 72 mm/hr Allergies (NKA means No Known Allergies) NKA Problems Active Problems??(4) Alcohol abuse?? Ankle fracture?? Chronic narcotic use?? Methadone dependence?? Education Materials Below is the list of Educational Leaflet Providered with your Discharge Instructions. Valuables and Belongings I fully understand and agree that [facility] accepts no responsibility for all my personal property including clothing, toilet articles, radios, jewelry, dentures, hearing aids, rings, money, or any other property that is in my possession or is brought to me after admission. I understand certain valuables may be placed in a hospital safe for a short period of time. I understand that the hospital is not liable for loss or damage due to accident, fire, or other natural occurrence while said property is in the safe. I accept full responsibility for any personal property that I keep with me, and will not hold the hospital responsible in case of loss or disappearance. I acknowledge that i have been encouraged to send valuables and belongings home. ?? No Valuables/Belongings: No valuables/belongings present Review of Valuable and Belonging List: With patient Possessions released to: pacu Date for Pt to Sign Valuables/Belongings: 02/27/23 11:45:00 ?? Other Discharge Information ? Case Management Discharge Plan?? Discharge Plan?? Discharge Agency Information?? Discharge Level of Care at Discharge: Homehealth/VNA Name of Agency #1: [facility] Mode of Transportation Arranged: car Agency City Attorney #1: Intake Discharge VNA/Hospice/Home Care: [facility] [phone] Service Categories #1: Fpc, Wound Care ?? Service Comments #1: The VNA will call you to set up an appointment. Please call the agency with any questions ?? Pulmonary Rehab Status?? Pulmonary Rehab Discharge Status?? Respiratory Rate: 18 br/min ? Common Emergency Awareness Tips IS IT A STROKE? Act FAST and Check for these signs: FACE Does the face look uneven? ARM Does one arm drift down? SPEECH Does their speech sound strange? TIME Call at any sign of stroke ?? Heart Attack Signs Chest discomfort: Most heart attacks involve discomfort in the center of the chest and lasts more than a few minutes, or goes away and comes back. It can feel like uncomfortable pressure, squeezing, fullness or pain. Discomfort in upper body: Symptoms can include pain or discomfort in one or both arms, back, neck, jaw or stomach. Shortness of breath: With or without discomfort. Other signs: Breaking out in a cold sweat, nausea, or lightheaded. Remember, MINUTES DO MATTER. If you experience any of these heart attack warning signs, call to get immediate medical attention! ?? Smoking can increase your chances of developing chronic health problems and can cause harmful effects to other family members in your house. If you smoke, you are strongly encouraged to quit. Please call [facility] at [phone] or [phone] ([phone]) or log in to [email or web address] for referrals to smoking cessation programs. ?? 637 Suicide & Crisis Lifeline is available 15/05 if you or someone you know needs to find a reason to keep living. By calling 985 you'll be connected to a skilled, trained counselor at a crisis center in your area. INPATIENT DISCHARGE INSTRUCTIONS SIGNATURE PAGE KIT MONGE Location:[facility] Registration Date and Time:02/21/2023 02:18 EDT Primary Care Physician: Not on Staff, PCP KIT MCKEON, have received the above patient education materials/instructions and have verbalized understanding. If ambulance or transport services are being used I further acknowledge being given a choice of service. ?? If you need to contact me, please call me at this number: . 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 Post-traumatic arthritis of left ankle: Present on admission - yes. Secondary Discharge Diagnoses Anxiety: Present on admission - yes. Asthma: Present on admission - yes. Methadone use: Present on admission - yes. Hypertension: Present on admission - yes. Opiate dependence: Present on admission - yes. Patient is aware of diagnosis Procedures Orthopedics: Dr. Freedman, 02/21/23: Incision and drainage left ankle - lateral wound/fibula, syndesmoosis/synostosis, and joint Dr. Freedman, 02/24/23: Incision and drainage left ankle - lateral and anterior wounds. Allergies Allergic Reactions (Selected) NKA Discharge condition: good Compared to admission: improved Functional Status: ambulatory with assistance WBAT LLE Discharge Disposition Home: alf. Home care with: VNA. Discharge Date 02/27/2023 Admission Date 02/21/2023 Hospital Course Typed narrative Kit is a 57-year-old male seen today in regards to left ankle pain and swelling. He has extensivehistory regarding the left ankle; initially he had sustained an open fracture in 2019, treated withORIF and I&D. He had subsequently gone on to develop infections and osteomyelitis, which have re quired multiple surgeries, the last of which was performed in 2019. He has had episodes of antibiotic use. Reports increased pain and swelling about the ankle over the past few days. Reports that he had an opening about the lateral aspect of the ankle. Therefore, presents to the emergency room for care. Denies any fevers. Does report fatigue. The patient with history of opiate abuse. Reports he has not used heroin in over a year. Denies any recent falls or trauma. He was evaluated and cleared for surgery by Medicine team. Their recommendations were implemented and their consult note is included below. Operative management was indicated and on the above-mentioned dates, the patient underwent the above-mentioned procedures, which were well tolerated. Postoperatively, the patient has remained hemodynamically stable without complications. Cultures grew MSSA and during his hospitalization he was on IV Cefazolin. ID was consulted; their final antibiotic plan is documented below, which is PO Doxycyline 100 mg BID x 6 weeks. Dressing was changed on 02/26/23; VNA has been arranged to continue dressing changes for patient. He has been seen and cleared by PT for d/c home. He was seen by Orthopedics on day of discharge and noted to be afebrile, tolerating an oral diet, voiding, and pain is well control led with oral pain medications. Appropriate d/c and F/U instructions were provided, as well as scripts for pain medications, stool softeners, and antibiotics by mouth for 6 weeks. Infections Disease Recommendations, note from 02/24/23: Impression and Plan Impression: 57-year-old gentleman admitted with chronic osteomyelitis of the left ankle status postI&D with cultures growing MSSA. He is for the OR again today to implant antibiotic beads. Final Recommendations: 1. Continue with IV cefazolin 2 g every 8 hourly while in house 2. Anticipate 6 weeks of oral antibiotics. Would favor doxycycline 100 mg twice per day for 6 weeksfrom the last OR visit 3. If the patient has new cultures not susceptible to doxycycline please page me for additional recommendations otherwise infectious disease service signing off today. 4. While on a Tetracycline the patient is to avoid concurrent ingestion of divalent cation containing foods and compounds including milk, Fe, Mg, Ca and multivitamins at least 2 hours before and after the antibiotic is taken as they can bind the antibiotic and prevent absorption. Prolonged exposureto sun can cause a photosensitive rash and the patient should wear sunblock if they are going to bein the sun for long periods of time. Take on a full stomach. (This note was dictated using the [employer] software and any typographical/grammatical errors were notdeliberate) Medicine Progress Note, 02/21/23: Assessment/Plan Assessment: Mr. Kit Monge is a 57-year-old Vietnamese-speaking gentleman with a medical history notable for multiple prior ankle surgeries, chronic osteomyelitis of the left fibula, anxiety, hypertension, asthma, GERD, and opiate dependence who presented to the emergency departmentwith pain in his left ankle. He is being admitted under the orthopedic service for operative washout. Hospital medicine team has been consulted for postoperative risk assessment and medical management. Wound of left ankle (S91.002A): Pre-op exam (Z01.818): Longstanding history of orthopedic intervention to left ankle. Is now status post hardware removal.Presented with ongoing left ankle pain and swelling, concern for osteomyelitis on imaging. Patient is afebrile, does not meet criteria for sepsis. Although did receive antibiotics in the emergency department, would hold on further antibiotics until bone biopsy may be obtained given stability. -- Given housing insecurity, may need broad-spectrum antibiotics when restarted until culture data returns and they may be narrowed. As per NSQIP, patient has a below average risk of any complications including serious complications, pneumonia, cardiac complication, surgical site infection, UTI, VTE, renal failure, return to the OR, and . He has an average risk of sepsis at 0.2%. As per Clifford perioperative risk scorin.1% RADHA risk. Overall, the benefits of the procedure would outweigh the risks. Recommend: ??? May proceed to surgery without need for further testing ??? Given stability, hold on further antibiotics until bone biopsy obtained ??? With concern for cellulitis, would restart broad-spectrum antibiotics once surgery is complete -- If bacteremic, would restart sooner ??? Follow-up blood and wound cultures ??? Pain management as per primary team, though would continue methadone as well Opiate dependence (F11.20): Patient is on methadone 90 mg daily. Last dose confirmed???receives this from [facility] on [place] [facility] Last dose received on February 20 at 7:28 AM, 90 mg. For patients on chronic methadone therapy, it is beneficial to continue this through the perioperative time to prevent withdrawal. Recommend: ??? Continue methadone (confirmed and ordered) ??? Monitor for symptoms of opiate overdose Asthma (J45.909): Chronic asthma, not in exacerbation though particularly wheezy. On lev albuterol outpatient. Not on formulary here, will attempt albuterol. Recommend: ??? Albuterol as needed (ordered) Tobacco use (Z72.0): Ongoing tobacco use, smokes approximately 1/2 pack/day. Requests a nicotine patch. Recommend: ??? NRT with nicotine patches ??? Smoking cessation for better wound healing Patient seen and evaluated on 02/21/2023. Hospital medicine consult team will continue to follow with you. Discharge Plan Diet/Activity/Patient Education/Follow Up Follow Up with: PCP Not on Staff; Christian Freedman Within 1 to 2 weeks Please contact office for F/U appointment information. Discharge Disposition Discharge: home with VNA, Prescription Given this visit:Prescriptions Acetaminophen (Tylenol 325 mg oral tablet) 3 tablet = 975 mg, By Mouth, Every 8 hours, # 60 tablet, 0 Refills, [facility] 3, [address] [place] [address] [phone] Next Dose: Aspirin (aspirin 325 mg oral delayed release tablet) 1 tablet = 325 mg, By Mouth, Daily, # 30 tablet, 0 Refills, [facility] 3, [address] [place] [address] [phone] Next Dose: Docusate (Colace sodium 100 mg oral capsule) 1 capsule = 100 mg, By Mouth, 2 times a day, # 20 capsule, 0 Refills, [facility] [address] [phone] Next Dose: Doxycycline (doxycycline monohydrate 100 mg oral capsule) 1 capsule = 100 mg, By Mouth, 2 times a day, # 84 capsule, 0 Refills, [facility] [address], [place] [address] [phone] Next Dose: Oxycodone (oxyCODONE 5 mg oral tablet) , # 30 tablet, 0 Refills, 1 tablet By Mouth Every 4-6 hours prn pain, [facility] [address] [address] [phone] Next Dose: Patient Instructions Given:Please contact Dr. Freedman??? office with any further questions or concerns regarding your injury or surgery. Elevate operative extremity to reduce swelling; keep bandages clean and dry when bathing/showering.Do not get wounds wet in the shower at this time. No tub baths or other stagnant water (ie pools, hot tubs, etc) until incisions have healed, stapleshave been removed, and you have been cleared by your surgeon. If any fever, chills, uncontrolled pain, or any other issues you feel may be urgent, do present, consult your physician and/or return to the Emergency Room. You may resume your home medications as prescribed by your PCP. Please take a laxative or stool softener, such as colace or milk of magnesia, as needed for constipation. A prescription has been provided for you. No driving or operating machinery until you are off of all narcotic medications, injury has healed,and you have been cleared by your surgeon. Weight bearing as tolerated left leg when ambulating. Encourage incentive spirometer/deep breathing. Resume usual diet. Anticipate 6 weeks of oral antibiotics. You have been prescribed Doxycycline 100 mg twice per day for 6 weeks from the last OR visit. While on Doxycycline you should avoid concurrent ingestion of divalent cation containing foods and compounds including milk, iron, Magnesium, Calcium and multivitamins at least 2 hours before and 2 hours after the antibiotic is taken as they can bind the antibiotic and prevent absorption. Prolonged exposure to sun can cause a photosensitive rash and the patient should wear sunblock if they are going to be in the sun for long periods of time. Take antibiotic on a full stomach. Education Given: Patient Follow-up:Added Follow Up Time Frame Comments Christian Freedman 1 to 2 weeks Please contact office for F/U appointment information PCP Not on Staff . Home Health Face to Face I certify that this patient is under my care and that I or an allowed non- physician practitioner working with me, had a [id number] encounter with the patient on this date: 02/26/2023. 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 Nursing: Wound care and treatment, Dressing changes every other day: Removal all bandages Reapply saline soaked supersponges and place in open wounds to anterior and lateral ankle Cover with dry ABDs and secure with Kerlix roll and ALAN bandage. Homebound due to: Pain, decreased strength, and endurance. Physician Signature: Christian Freedman MD . MEDICATION LIST (Selected) Prescriptions Prescribed Colace sodium 100 mg oral capsule: 100 mg, 1, capsule, By Mouth, 2 times a day, # 20 capsule, Refills 0, Tot. Refills 0, Maintenance, 02/26/23 13:23:00 EDT, [facility], Partial fill upon patient request if the prescription is for a schedu... Tylenol 325 mg oral tablet: 975 mg, 3, tablet, By Mouth, Every 8 hours, # 60 tablet, Refills 0, Tot. Refills 0, Acute 03/05/23 13:23:00 EDT, 02/26/23 13:23:00 EDT, [facility], Partial fill upon patient request if the prescription i... aspirin 325 mg oral delayed release tablet: 325 mg, 1, tablet, By Mouth, Daily, # 30 tablet, Refills 0, Tot. Refills 0, Maintenance, 02/26/23 13:24:00 EDT, [facility], Partial fill upon patient request if the prescription is for a schedule II opio... doxycycline monohydrate 100 mg oral capsule: 1 capsule = 100 mg, By Mouth, 2 times a day, for 6 week(s), # 84 capsule, 0 Refills, Acute 04/09/23 13:25:00 EDT, 02/26/23 13:25:00 EDT, [facility], Partial fill upon patient request if the prescription is for a schedule II opioid drug.,... oxyCODONE 5 mg oral tablet: See Instructions, PRN, 1 tablet By Mouth Every 4-6 hours prn pain, # 30tablet, Refills 0, Tot. Refills 0, Acute 03/03/23 13:24:00 EDT, Pain , Moderate, 02/26/23 13:24:00 EDT, Instructions Replace Required Details, Route to Pharmacy Electronically, [facility]... Documented Medications Documented levalbuterol 45 mcg/inh inhalation aerosol: 2 puffs, Inhalation, Every 4 hours, PRN for wheezing, #15 Gm, 0 Refills, Maintenance, 02/21/23 6:12:00 EDT, Aerosol, Partial fill upon patient request if the prescription is for a schedule II opioid drug. methadone 10 mg oral tablet: = 90 mg, By Mouth, Daily, 0 Refills, Maintenance, 12/30/19 14:44:00 EDT, Tablet, Partial fill upon patient request Therapies Wound care: Dressing changes every other day: Removal all bandages Reapply saline soaked supersponges and place in open wounds to anterior and lateral ankle Cover with dry ABDs and secure with Kerlix roll and ALAN bandage. * Nicolette Castaneda: PERFORM, SIGN, VERIFY Event Display: Patient Education Handout Authored Date: [id number] XR Ankle - left GE 3 Views * LESLY Claudio S: Rick Hamilton MD: VERIFY Event Display: Result: Authored Date: [id number] Left ankle 3 views dated February 21, 2023. Comparison films are from November 10, 2021. HISTORY: Pain. FINDINGS: This examination shows soft tissue gas adjacent to the lateral malleolus. There is a deformity of the distal fibular metadiaphysis consistent with an old healed fracture. There is significant loss of joint space and remodeling of the talotibial articulation. A large talar spur is once again demonstrated. There is a joint effusion. Calcifications present at the insertion of the Achilles tendon. IMPRESSION: Evidence of old trauma. Severe arthritic changes. No evidence of acute fracture or dislocation. Soft tissue gas which may be posttraumatic or infectious in etiology. Examination 19531. Thank you for allowing me to participate in the care of this patient. WSN: [id number] Ordering Physician: Roshan Chowdary Dictated By: Rick Cotto MD Dictated Date/Time: 02/21/23 7:56 am Reviewed By: Rick Cotto MD Signed By: Rick Cotto MD Signed Date/Time: 02/21/23 7:56 am Transcribed By: JESSICA Transcribed Date/Time: 02/21/23 7:56 am Patient Care team information Care Team Personnel Name: Percy Sierra RN Position: [facility] ED RN W/OE and Tasks Member Role: Primary Care Nurse Name: Denise Wade RN Position: [facility] RN Member Role: Primary Care Nurse Name: Consuelo Oneill RN Position: [facility] RN Member Role: Primary Care Nurse Name: Serena Eubanks RN Position: [facility] RN Member Role: Primary Care Nurse Name: Jose Barron RN Position: [facility] RN Member Role: Primary Care Nurse Name: Mayra Luna RN Position: [facility] RN Member Role: Primary Care Nurse Name: Ledy Jaeger RN Position: [facility] RN Member Role: Primary Care Nurse Name: Eda Ramirez RN Position: [facility] RN Member Role: Primary Care Nurse Name: Supriya Stephens RN Position: [facility] RN Member Role: Primary Care Nurse Name: Skyla Yoo RN Position: [facility] RN Member Role: Primary Care Nurse Name: Randi Lu RN Position: [facility] RN Member Role: Primary Care Nurse Name: Aliya Ross RN Position: [facility] RN Member Role: Primary Care Nurse Name: Eugenie Quintana RN Position: [facility] RN Member Role: Primary Care Nurse Name: Linda Ann RN Position: [facility] RN Member Role: Primary Care Nurse Name: Not on Staff, PCP Position: [facility] Physician (General Medicine) Member Role: PCP Name: Nanette Espinosa RN Position: [facility] RN Member Role: Primary Care Nurse Name: Arin Rodriguez RN Position: [facility] RN Member Role: Primary Care Nurse Name: Italia Childs RN Position: [facility] RN Member Role: Primary Care Nurse Name: Verenice Gomez RN Position: [facility] OB RN Member Role: Primary Care Nurse Name: Kinga Hummel RN Position: [facility] RN Member Role: Primary Care Nurse Name: tSacy Thompson RN Position: [facility] RN Member Role: Primary Care Nurse Name: Yefri Bravo RN Position: [facility] SN RN Member Role: Primary Care Nurse Name: Debbi VAUGHN Attending Position: [facility] ED Medicine MD Name: Cristiane Polanco Position: [facility] ED OA Charge Member Role: ED Associate Name: Juan Resendez LPN Position: [facility] ED RN W/OE and Tasks Member Role: Patient Care Provider Name: Terra Ugarte MD Position: [facility] Resident Member Role: ED Resident Address: Address: [address] [place] [id number] Name: Jose Sun Position: [facility] ED TA [facility] Member Role: Patient Care Provider Care Team Related Persons Name: MARCELINA VALDEZ Address: home [address] [place] [address] Name: ANDREW DALAL Address: [address] [place] [address] Name: TARA LEI Address: home [address] [place] [address]
--- OUTSIDE RECORDS SUMMARY | 2024-03-11 05:45 | XMS_ITS | Continuity of Care Document ---
Author Organization [facility] ter Address [address] [place] [address]- Care Team Providers Care Coordinator Skill Training Program Name Role Phone Not on Staff, PCP Primary Care Physician Unavail able Encounter [facility] [place] Date(s): 10/21/21 - 10/22/[address] [address]- Discharge Disposition: A-D/C M[facility], Mcfp, or Half-Way Fac Attending Physician: Leonel Dickerson MD Admitting Physician: Leonel Dickerson MD Referring Physician: Not on Staff, Referring [...] 1 2 3 Oxygen Saturation [94-100 %] 96 % (10/22/21 8:26 AM) 98 % (10/22/21 6:20 AM) 98 % (10/22/21 4:34 AM) Pulse Rate [55-90 bpm] 88 bpm (10/22/21 8:26 AM) 86 bpm (10/22/21 6:20 AM) 87 bpm (10/22/21 4:34 AM) Blood Pressure [90-138/55-84 mm Hg] 144/83mm Hg *H* (10/22/21 8:26 AM) 118/72mm Hg (10/22/21 6:20 AM) 128/81mm Hg (10/22/21 4:34 AM) Respiratory Rate [16-30 br/min] 18 br/min (10/22/21 8:26 AM) 16 br/min (10/22/21 6:20 AM) 16 br/min (10/22/21 4:34 AM) Temperature [96.8-100.4 DegF] 97.3 DegF (10/22/21 4:34 AM) 98.2 DegF (10/21/21 10:11 PM) Mode of Delivery (Oxygen) Room air (10/22/21 8:26 AM) Room air (10/22/21 6:20 AM) Room air (10/22/21 4:34 AM) Blood pressure sites Arm, left (10/22/21 8:26 AM) Arm, right (10/22/21 6:20 AM) Arm, right (10/22/21 4:34 AM) Temperature Route Oral (10/22/21 6:20 AM) Oral (10/22/21 4:34 AM) Oral (10/22/21 1:17 AM) Social History Social History Type Response Smoking Status 5-9 cigarettes (betw een 1/4 to 1/2 pack)/day in last 30 days entered on: 12/28/19 Sex
--- OUTSIDE RECORDS SUMMARY | 2024-03-11 05:45 | XMS_ITS | Continuity of Care Document ---
Author Organization [facility] Address [address] [place] [address]- Care Team Providers Care Ob/Gyn Name Role Phone Not on Staff, PCP Primary Care Physician Unavail able Encounter 02/28/23 - 05/16/23 [facility] [address] [place] [address]- Discharge Disposition: GOALS MET Allergies, Adverse Reactions, Alerts No Known Allergies Immunizations Given and Recorded Vaccine Date Status Refusal Reason [id number] bivalent booster vax 10/03/22 Recorded SARS-CoV-2 (COVID-19) [...] 02/26/23 13:24:00 EDT, Route to Pharmacy Electronically, [facility], Partial fill upon patient request if the prescription is for a schedule II opio... Start Date: 02/26/23 Status: Ordered Colace sodium 100 mg oral capsule 100 mg, 1, capsule, By Mouth, 2 times a day, # 20 capsule, Refills 0, Tot. Refills 0, Maintenance, 02/26/23 13:23:00 EDT, Route to Pharmacy Electronically, [facility], Partial fill uponpatient request [...] Confirmed Active Chronic narcotic use Confirmed Active Social History Social History Type Response Smoking Status 5-9 cigarettes (betw een 1/4 to 1/2 pack)/day in last 30 days entered on: 12/28/19 Sex Patient Care team information Care Team Personnel Name: Percy Sierra RN Position: [facility] ED RN W/OE and Tasks Member Role: Primary Care Nurse Name: Denise Wade RN Position: [facility] RN Member Role: Primary Care Nurse Name: Consuelo Oneill RN Position: [facility] RN Member Role: Primary Care Nurse Name: Serena Eubanks RN Position: [facility] RN Member Role: Primary Care Nurse Name: Jose Barron RN Position: [facility] RN Member Role: Primary Care Nurse Name: Mayra Luna RN Position: [facility] RN Member Role: Primary Care Nurse Name: Ledy Jaeger RN Position: [facility] RN Member Role: Primary Care Nurse Name: Eda Ramirez RN Position: [facility] RN Member Role: Primary Care Nurse Name: Supriya Stephens RN Position: [facility] RN Member Role: Primary Care Nurse Name: Skyla Yoo RN Position: [facility] RN Member Role: Primary Care Nurse Name: Randi Lu RN Position: [facility] RN Member Role: Primary Care Nurse Name: Aliya Ross RN Position: [facility] RN Member Role: Primary Care Nurse Name: Eugenie Quintana RN Position: [facility] RN Member Role: Primary Care Nurse Name: Linda Ann RN Position: [facility] RN Member Role: Primary Care Nurse Name: Not on Staff, PCP Position: [facility] Physician (General Medicine) Member Role: PCP Name: Nanette Espinosa RN Position: [facility] RN Member Role: Primary Care Nurse Name: Arin Rodriguez RN Position: [facility] RN Member Role: Primary Care Nurse Name: Italia Childs RN Position: [facility] RN Member Role: Primary Care Nurse Name: Verenice Gomez RN Position: [facility] OB RN Member Role: Primary Care Nurse Name: Kinga Hummel RN Position: [facility] RN Member Role: Primary Care Nurse Name: Stacy Thompson RN Position: [facility] RN Member Role: Primary Care Nurse Name: Daniela Bravo RNeekaleslye Position: [facility] SN RN Member Role: Primary Care Nurse Care Team Related Persons Name: MARCELINA VALDEZ Address: home [address] [place] [address] Name: ANDREW DALAL Address: [address] [place] [address] Name: TARA LEI Address: [address] [place] [address]
--- OUTSIDE RECORDS SUMMARY | 2024-03-11 05:45 | XMS_ITS | Continuity of Care Document ---
Author Organization [facility] Address [address] [place] [address]- Care Team Providers Care Clinical Program Coordinator Name Role Phone Brian Yusuf NP Primary Care Physician [phone] Encounter [facility] [place] Date(s): 01/30/20 - 02/06/20 [facility] [address] [place] [address]- [facility] Attending Physician: Nico Alvarez MD Admitting Physician: Nico Alvarez MD Allergies, Adverse Reactions, Alerts Substance Reaction [...]
--- OUTSIDE RECORDS SUMMARY | 2024-03-11 05:45 | XMS_ITS | Continuity of Care Document ---
Author Organization [facility] Address [address] [place] [address]- Care Team Providers Care Auto Seat Cover Installer Name Role Phone Brian Yusuf NP Primary Care Physician [phone] Encounter [facility] [place] Date(s): 10/29/19 - 11/08/19 [facility] [address] [place] [address] [facility] Attending Physician: Lon Castellanos Admitting Physician: [id number] Referring Physician: Admtr, [id number] Allergies, Adverse Reactions, Alerts Substance Reaction Severity [...]
--- OUTSIDE RECORDS SUMMARY | 2024-03-11 05:45 | XMS_ITS | Continuity of Care Document ---
Author Organization [facility] Address [address] [place] [address]- Care Team Providers Care Discharge Planner Name Role Phone Madelin NAVARRO, Brian Primary Care Physician Encounter [facility] [place] Date(s): 05/04/21 - 06/03/21 [facility] [address] [place] [address] Attending Physician: Lon Castellanos Admitting Physician: AdmLon helm Referring Physician: AdmtrLon Allergies, Adverse Reactions, Alerts [...]
--- OUTSIDE RECORDS SUMMARY | 2024-03-11 05:45 | XMS_ITS | Continuity of Care Document ---
Author Organization [facility] ter Address [address] [place] [address]- Care Team Providers Care Application Specialist Name Role Phone Madelin NAVARRO, Brian Primary Care Physician [phone] Encounter [facility] [place] Date(s): 05/07/21 - 05/08/[address] [address]- Encounter Diagnosis Left ankle swelling(Final) - 05/08/21 Discharge Disposition: A-D/C Home Attending Physician: Ana Mahan MD Admitting Physician: Ana Mahan MD Referring Physician: Not on Staff, Referring [...] 05/15/21 19:23:00 EDT, 05/08/21 19:23:00 EDT, Tablet, [id number], Partial fill upon patient request if [...] 05/18/21 4:29:00 EDT, 05/08/21 4:29:00 EDT, Capsule, [facility], Partial fill upon patient request if the prescription is for a schedule II opioid d... Start Date: 05/08/21 Stop Date: 05/18/21 Status: Ordered Keflex monohydrate 500 mg oral capsule 1 capsule = 500 mg, By Mouth, 4 times a day, for 7 days, # 28 capsule, 0 Refills, Acute 05/15/21 4:53:00 EDT, 05/08/21 4:53:00 EDT, Capsule, [id number], Partial fill upon patient request if [...] Methadone dependence(Confirmed) Active Chronic narcotic use(Confirmed) Active Results Radiology Reports * Exam Date Time Procedure Performing Provider Status 05/08/21 3:44 AM Ankle Min 3 Views Left Rachel Corrales el; Auth (Verified) Notes: (Ankle Min 3 Views Left) Reason For Exam: edema;Other: RESULT: Ankle Min 3 Views Left Ankle Min 3 Views Left Hx of Present Illness: L leg swelling for 3 days; Reason: Other:; edema; Clinical Question(s): Fracture. COMPARISON: 03/21/2020, and several priors. FINDINGS: No fracture or dislocation. Severe arthritic changes present. Previously seen fixation screws have been removed. Screw tracks noted. Worsening mixed sclerotic and lucent regions in the tibial plafonds, distal fibular metadiaphysis, and talar dome, highly suggestive of sequela of chronic osteomyelitis. There is a joint effusion. Ongoing infection suspected. There is subcutaneous soft tissue edema and diffuse circumferential soft tissue swelling about the ankle. IMPRESSION: Worsening mixed sclerotic and lucent regions in the tibial plafond, distal fibular metadiaphysis, and talar dome, highly suggestive of sequela of chronic osteomyelitis. There is a joint effusion. Ongoing infection/septic arthritis suspected. A [place] message has been communicated via the [employer] system on 05/08/2021 8:57 AM, Message ID [id number]. WSN: [id number] Ordering Physician: Elva Herrmann Dictated By: David Del Real MD Dictated Date/Time: 05/08/21 8:57 am Reviewed By: David Del Real MD Signed By: David Del Real MD Signed Date/Time: 05/08/21 8:57 am Transcribed By: JESSICA Transcribed Date/Time: 05/08/21 8:52 am Vital Signs Most recent to oldest [Reference Range]: 1 2 3 Weight 91.9 kg (05/07/21 9:54 AM) Oxygen Saturation [94-100 %] 97 % (05/08/21 4:48 AM) 96 % (05/08/21 1:54 AM) 95 % (05/07/21 8:00 PM) Pulse Rate [55-90 bpm] 62 bpm (05/08/21 4:48 AM) 66 bpm (05/08/21 1:54 AM) 68 bpm (05/07/21 8:00 PM) Blood Pressure [90-138/55-84 mm Hg] 156/68mm Hg *H* (05/08/21 4:48 AM) 174/68mm Hg *H* (05/08/21 1:54 AM) 120/78mm Hg (05/07/21 8:00 PM) Respiratory Rate [16-30 br/min] 18 br/min (05/08/21 4:48 AM) 16 br/min (05/08/21 1:54 AM) 18 br/min (05/07/21 8:00 PM) Temperature [96.8-100.4 DegF] 98.2 DegF (05/08/21 4:48 AM) 98.6 DegF (05/08/21 1:54 AM) 98.0 DegF (05/07/21 8:00 PM) Mode of Delivery (Oxygen) Room air (05/08/21 4:48 AM) Room air (05/08/21 1:54 AM) Room air (05/07/21 8:00 PM) Blood pressure sites Arm, left (05/08/21 1:54 AM) Arm, right (05/07/21 8:00 PM) Arm, left (05/07/21 9:54 AM) Temperature Route Oral (05/08/21 4:48 AM) Oral (05/08/21 1:54 AM) Oral (05/07/21 8:00 PM) Weight Obtained Via Standing scale (05/07/21 9:54 AM) Social History Social History Type Response Smoking Status 5-9 cigarettes (betw een 1/4 to 1/2 pack)/day in last 30 days entered on: 12/28/19 Sex
--- OUTSIDE RECORDS SUMMARY | 2024-03-11 05:45 | XMS_ITS | Continuity of Care Document ---
Author Organization [facility] Address [address] [place] [address]- Care Team Providers Care Reading Coach Name Role Phone Brian Yusuf NP Primary Care Physician Encounter [facility] [place] Date(s): 10/18/19 - 10/28/19 [facility] [address] [place] [address]- [facility] Attending Physician: Lon Castellanos Admitting Physician: AdmLon [...]
--- OUTSIDE RECORDS SUMMARY | 2024-03-11 05:45 | XMS_ITS | Continuity of Care Document ---
Author Organization [facility] Address [address] [place] [address]- Care Team Providers Care Facilities Operator Name Role Phone Brian Yusuf NP Primary Care Physician Encounter [facility] [place] Date(s): 03/11/20 - 04/10/20 [facility] [address] [place] [address]- [facility] Attending Physician: Lon [...]
--- OUTSIDE RECORDS SUMMARY | 2024-03-11 05:45 | XMS_ITS | Continuity of Care Document ---
Author Organization [facility] Address [address] [place] [address]- Care Team Providers Care Interdisciplinary Professor Name Role Phone Brian Yusuf NP Primary Care Physician [phone] [id number] Date(s): 10/07/19 - 11/08/19 [facility] [address] [place] [address]- [facility] Attending Physician: Apoorva CORONADO, Ryan Downey Admitting Physician: Ryan Guerin MD Referring Physician: Brian Yusuf NP Allergies, Adverse [...]
--- OUTSIDE RECORDS SUMMARY | 2024-03-11 05:45 | XMS_ITS | Continuity of Care Document ---
Author Organization [facility] ter Address [address] [place] [address]- Care Team Providers Care Produce Field Merchandiser Name Role Phone Brian Yusuf NP Primary Care Physician [phone] Encounter [facility] R [id number] Date(s): 03/21/20 - 04/02/[address] [address]- [facility] Encounter Diagnosis Osteomyelitis(Final) - 03/21/20 Osteomyelitis of left tibia(Discharge Diagnosis) - 03/24/20 History of ankle surgery(Discharge Diagnosis) - 03/24/20 Status post incision and drainage(Discharge Diagnosis) - 03/24/20 Discharge Disposition: A-Transfer SNF Attending Physician: Alvaro Alfredo MD Admitting Physician: Alvaro Alfredo MD Referring Physician: Not on Staff, Referring [...] EDT, Powder Start Date: 04/02/20 Status: Ordered oxyCODONE 5 mg oral tablet See Instructions, PRN, 1 tablet By Mouth Every 4-6 hours prn pain, # 18 tablet, Refills 0, Tot. Refills 0, Acute 04/05/20 13:45:00 EDT, Pain , Moderate, 04/02/20 13:44:00 EDT, Instructions Replace Required Details, Print Requisition, Partial fill upon... Start Date: 04/02/20 Stop Date: 04/05/20 Status: Ordered pantoprazole 40 mg oral delayed [...] Methadone dependence(Confirmed) Active Chronic narcotic use(Confirmed) Active Diagnosis Diagnosis Type Effective Dates Health Status Clinical Service Informant Osteomyelitis of left tibia Discharge Diagnosis 03/24/20 Non-Specified History of ankle surgery Discharge Diagnosis 03/24/20 Non-Specified Status post incision and drainage Discharge Diagnosis 03/24/20 Non-Specified Results Orders for Microbiology Reports Name Date Anaerobic Culture (ANAEROBIC CULTURE) 03/23/20 Tissue Culture w/ Gram Smear (TISSUE/BIO PSY CULT.) 03/23/20 Anaerobic Culture (ANAEROBIC CULTURE) 03/23/20 Wound Deep Culture w/ Gram Smear (DEEP W OUND CULTURE) 03/23/20 Wound Deep Culture w/ Gram Smear (DEEP W OUND CULTURE) 03/21/20 Anaerobic Culture 03/21/20 Blood Culture 03/21/20 Blood Culture #2 03/21/20 Microbiology Reports TEST:Anaerobic Culture STATUS:Auth (Verified) BODY SITE: SOURCE:TISSUE1 COLLECTED DATE/TIME:03/23/20 2:26 PM Anaerobic Culture SPECIMEN DESCRIPTION : TISSUE LEFT TIBIA DISTAL SPECIAL REQUESTS : NONE CULTURE : NO ANAEROBES ISOLATED REPORT STATUS : FINAL 03/28/2020 TEST:Tissue/Biopsy Culture STATUS:Auth (Verified) BODY SITE: SOURCE:TISSUE1 COLLECTED DATE/TIME:03/23/20 2:26 PM Tissue/Biopsy Culture SPECIMEN DESCRIPTION : TISSUE LEFT TIBIA DISTAL SPECIAL REQUESTS : NONE GRAM STAIN : 4+ WHITE BLOOD CELLS NO ORGANISMS SEEN CULTURE : 2+ STAPHYLOCOCCUS AUREUS. REPORT STATUS : FINAL 03/25/2020 ORGANISM 2+ STAPHYLOCOCCUS AUREUS. METHOD MIN. INHIB. CONC. (MCG/ML) CIPROFLOXACIN SUSCEPTIBLE CLINDAMYCIN RESISTANT ERYTHROMYCIN RESISTANT INDUCIBLE CLINDAMYCI POSITIVE LEVOFLOXACIN SUSCEPTIBLE OXACILLIN SUSCEPTIBLE PENICILLIN RESISTANT RIFAMPIN SUSCEPTIBLE RIFAMPIN RIFAMPIN SHOULD NOT BE USED ALONE FOR ANTIMICROBIAL RIFAMPIN THERAPY. TETRACYCLINE RESISTANT TRIMETH/SULFAMETHOX SUSCEPTIBLE VANCOMYCIN SUSCEPTIBLE TEST:Anaerobic Culture STATUS:Auth (Verified) BODY SITE: SOURCE:SWAB1 COLLECTED DATE/TIME:03/23/20 1:37 PM Anaerobic Culture SPECIMEN DESCRIPTION : SWAB LEFT LEG DISTAL TIBIA SPECIAL REQUESTS : NONE CULTURE : NO ANAEROBES ISOLATED REPORT STATUS : FINAL 03/28/2020 TEST:Deep Wound Culture STATUS:Auth (Verified) BODY SITE: SOURCE:SWAB1 COLLECTED DATE/TIME:03/23/20 1:37 PM Deep Wound Culture SPECIMEN DESCRIPTION : SWAB LEFT LEG DISTAL TIBIA SPECIAL REQUESTS : NONE GRAM STAIN : 2+ WHITE BLOOD CELLS 1+ GRAM POSITIVE COCCI CULTURE : 3+ STAPHYLOCOCCUS AUREUS. REPORT STATUS : FINAL 03/25/2020 ORGANISM 3+ STAPHYLOCOCCUS AUREUS. METHOD MIN. INHIB. CONC. (MCG/ML) CIPROFLOXACIN SUSCEPTIBLE CLINDAMYCIN RESISTANT ERYTHROMYCIN RESISTANT INDUCIBLE CLINDAMYCI POSITIVE LEVOFLOXACIN SUSCEPTIBLE OXACILLIN SUSCEPTIBLE PENICILLIN RESISTANT RIFAMPIN SUSCEPTIBLE RIFAMPIN RIFAMPIN SHOULD NOT BE USED ALONE FOR ANTIMICROBIAL RIFAMPIN THERAPY. TETRACYCLINE RESISTANT TRIMETH/SULFAMETHOX SUSCEPTIBLE VANCOMYCIN SUSCEPTIBLE TEST:Anaerobic Culture STATUS:Auth (Verified) BODY SITE: SOURCE:SWAB1 COLLECTED DATE/TIME:03/21/20 1:08 PM Anaerobic Culture SPECIMEN DESCRIPTION : SWAB ANKLE LT SPECIAL REQUESTS : NONE CULTURE : NO ANAEROBES ISOLATED REPORT STATUS : FINAL 03/26/2020 TEST:Deep Wound Culture STATUS:Auth (Verified) BODY SITE: SOURCE:SWAB1 COLLECTED DATE/TIME:03/21/20 1:08 PM Deep Wound Culture SPECIMEN DESCRIPTION : SWAB LFT ANKLE SPECIAL REQUESTS : NONE GRAM STAIN : 4+ POLYMORPHONUCLEAR LEUKOCYTES 1+ GRAM POSITIVE COCCI CULTURE : 4+ STAPHYLOCOCCUS AUREUS. REPORT STATUS : FINAL 03/23/2020 ORGANISM 4+ STAPHYLOCOCCUS AUREUS. METHOD MIN. INHIB. CONC. (MCG/ML) CIPROFLOXACIN SUSCEPTIBLE CLINDAMYCIN RESISTANT ERYTHROMYCIN RESISTANT INDUCIBLE CLINDAMYCI POSITIVE LEVOFLOXACIN SUSCEPTIBLE OXACILLIN SUSCEPTIBLE PENICILLIN RESISTANT RIFAMPIN SUSCEPTIBLE RIFAMPIN RIFAMPIN SHOULD NOT BE USED ALONE FOR ANTIMICROBIAL RIFAMPIN THERAPY. TETRACYCLINE RESISTANT TRIMETH/SULFAMETHOX SUSCEPTIBLE VANCOMYCIN SUSCEPTIBLE TEST:Blood Culture, Second Order STATUS:Auth (Verified) BODY SITE: SOURCE:Blood COLLECTED DATE/TIME:03/21/20 11:55 AM Blood Culture, Second Order SPECIMEN DESCRIPTION : BLOOD R AC SPECIAL REQUESTS : NONE CULTURE : NO GROWTH 5 DAYS. REPORT STATUS : FINAL 03/26/2020 TEST:Blood Culture STATUS:Auth (Verified) BODY SITE: SOURCE:Blood COLLECTED DATE/TIME:03/21/20 11:31 AM Blood Culture SPECIMEN DESCRIPTION : BLOOD L HAND SPECIAL REQUESTS : NONE CULTURE : NO GROWTH 5 DAYS. REPORT STATUS : FINAL 03/26/2020 Radiology Reports * Exam Date Time Procedure Performing Provider Status 03/23/20 2:31 PM C-Arm > 1 Hour Patricia Lee; Auth (V erified) Notes: (C-Arm > 1 Hour) Reason For Exam: Left ankle hardware removal tt 1 hr 5min ft 23.2 sec dap 0.76 mgy RESULT: C-Arm > 1 Hour Ankle Min 3 Views Left, C-Arm > 1 Hour INDICATION: 54-year-old male with Left ankle hardware removal due to suspected septic arthritis with destruction tibial and talar articular surface. Technologist time: 65 minutes. Fluoroscopy time: 23.2 seconds. DAP: 0.76mG COMPARISON: Left ankle x-ray 03/21/2020 FINDINGS: A total of five intraprocedural views of the LEFT ankle including frontal and lateral projection obtained in the OR with the C-arm without a radiologist in attendance. Redemonstrated are destructive changes of the distal tibia and fibula, with removal of surgical hardware. IMPRESSION: Removal of orthopedic hardware from the LEFT ankle. I have personally reviewed the images and I agree with this report. WSN: [id number] Ordering Physician: Alvaro Alfredo Dictated By: Lyle Bansal DO Dictated Date/Time: 03/23/20 4:01 pm Reviewed By: Demarcus Cormier MD Signed By: Demarcus Cormier MD Signed Date/Time: 03/23/20 4:06 pm Transcribed By: JESSICA Transcribed Date/Time: 03/23/20 3:27 pm * Exam Date Time Procedure Performing Provider Status 03/23/20 2:31 PM Ankle Min 3 Views Left Patricia Lee; Auth (Verified) Notes: (Ankle Min 3 Views Left) Reason For Exam: Left ankle hardware removal TT 3co6kgm FT 23.2sec DAP 0.76mGy RESULT: Ankle Min 3 Views Left Ankle Min 3 Views Left, C-Arm > 1 Hour INDICATION: 54-year-old male with Left ankle hardware removal due to suspected septic arthritis with destruction tibial and talar articular surface. Technologist time: 65 minutes. Fluoroscopy time: 23.2 seconds. DAP: 0.76mG COMPARISON: Left ankle x-ray 03/21/2020 FINDINGS: A total of five intraprocedural views of the LEFT ankle including frontal and lateral projection obtained in the OR with the C-arm without a radiologist in attendance. Redemonstrated are destructive changes of the distal tibia and fibula, with removal of surgical hardware. IMPRESSION: Removal of orthopedic hardware from the LEFT ankle. I have personally reviewed the images and I agree with this report. WSN: [id number] Ordering Physician: Alvaro Alfredo Dictated By: Lyle Bansal DO Dictated Date/Time: 03/23/20 4:01 pm Reviewed By: Demarcus Cormier MD Signed By: Demarcus Cormier MD Signed Date/Time: 03/23/20 4:06 pm Transcribed By: JESSICA Transcribed Date/Time: 03/23/20 3:27 pm * Exam Date Time Procedure Performing Provider Status 03/21/20 1:24 PM Chest Single Frontal View Rief , Nicole nne; Auth (Verified) Notes: (Chest Single Frontal View) Reason For Exam: Cough RESULT: Chest Single Frontal View Chest Single Frontal View Refer to EMR; Reason: Cough; Clinical Question(s): Preop; Hx of Present Illness: pt reports chronicwound at L lateral ankle x 3 months since having sx for fx ankle. Yesterday sight opened. Denies fevers. COMPARISON: 10/06/2007 FINDINGS: LINES AND TUBES: None. LUNGS AND PLEURA: Clear lungs. Normal pulmonary vascularity. No pleural effusion. No pneumothorax. HEART, MEDIASTINUM AND KATE: Heart is normal in size. Normal mediastinal and hilar contour. BONES AND SOFT TISSUES: No acute abnormality. IMPRESSION: No acute abnormality. WSN: [id number] Ordering Physician: Cady Beavers Dictated By: Percy Wiley MD Dictated Date/Time: 03/21/20 2:48 pm Reviewed By: Percy Wiley MD Signed By: Percy Wiley MD Signed Date/Time: 03/21/20 2:48 pm Transcribed By: JESSICA Transcribed Date/Time: 03/21/20 2:47 pm * Exam Date Time Procedure Performing Provider Status 03/21/20 9:53 AM Ankle Min 3 Views Left Filiberto Kovacs i; Auth (Verified) Notes: (Ankle Min 3 Views Left) Reason For Exam: with Pain;Trauma RESULT: Ankle Min 3 Views Left Left ankle 3 views INDICATION: chronic wound at L lateral ankle x 3 months since having sx for fx ankle. yesterday sight opened. denies fevers. denies symptoms of covid. previously on oral abx. COMPARISON: Most recent 12/27/2019 FINDINGS: Persistent but slightly decreased lateral soft tissue swelling. No soft tissue emphysema or foreignbody. Unchanged position and alignment of the distal tibial hardware. There is increased lucency near the distal articular surface of the tibia with loss of cortical margin of both the distal tibia and adjacent talar dome. No new fracture. IMPRESSION: Findings are highly suspicious for septic arthritis with likely destruction of the tibial and talararticular surfaces. Findings discussed with Dr. Debra North WSN: [id number] Ordering Physician: Titi Bhatt Dictated By: Graham Swann MD Dictated Date/Time: 03/21/20 10:10 a Reviewed By: Graham Swann MD Signed By: Graham Swann MD Signed Date/Time: 03/21/20 10:10 am Transcribed By: JESSICA Transcribed Date/Time: 03/21/20 10:04 am Vital Signs Most recent to oldest [Reference Range]: 1 2 3 Height 166 cm (04/02/20 8:22 AM) 166 cm (04/02/20 4:47 AM) 166 cm (04/01/20 8:36 PM) Weight 85.5 kg (03/23/20 11:27 AM) 85.5 kg (03/21/20 11:17 PM) 84.5 kg (03/21/20 10:28 PM) Oxygen Saturation [94-100 %] 98 % (04/02/20 8:22 AM) 97 % (04/02/20 4:47 AM) 99 % (04/01/20 8:36 PM) Pulse Rate [55-90 bpm] 72 bpm (04/02/20 8:22 AM) 57 bpm (04/02/20 4:47 AM) 60 bpm (04/01/20 8:36 PM) Body Mass Index [18.5-24.99] 31.03 *>HHI* (03/23/20 11:27 AM) 31.03 *>HHI* (03/21/20 11:17 PM) 30.66 *>HHI* (03/21/20 10:28 PM) Blood Pressure [90-138/55-84 mm Hg] 121/71mm Hg (04/02/20 8:22 AM) 105/60mm Hg (04/02/20 4:47 AM) 109/65mm Hg (04/01/20 8:36 PM) Respiratory Rate [16-30 br/min] 20 br/min (04/02/20 4:05 PM) 20 br/min (04/02/20 4:05 PM) 20 br/min (04/02/20 3:05 PM) Temperature [96.8-100.4 DegF] 98.7 DegF (04/02/20 8:22 AM) 97.3 DegF (04/02/20 4:47 AM) 98.9 DegF (04/01/20 3:21 PM) Liters per Minute 2 L/min (03/23/20 4:10 PM) 2 L/min (03/23/20 3:55 PM) 2 L/min (03/23/20 3:45 PM) Mode of Delivery (Oxygen) Room air (04/02/20 8:22 AM) Room air (04/02/20 4:47 AM) Room air (04/01/20 8:36 PM) Blood pressure sites Arm, right (04/02/20 8:22 AM) Arm, left (04/01/20 3:21 PM) Arm, left (04/01/20 7:15 AM) Temperature Route Oral (04/02/20 8:22 AM) Oral (04/02/20 4:47 AM) Oral (04/01/20 8:36 PM) Dry Weight 85.5 kg (03/21/20 11:17 PM) 84.5 kg (03/21/20 10:28 PM) 84.5 kg (03/21/20 3:12 PM) Weight Obtained Via Standing scale (03/21/20 8:53 AM) Dry Weight Obtained Via Standing scale (03/21/20 8:53 AM) Social History Social History Type Response Smoking Status 5-9 cigarettes (betw een 1/4 to 1/2 pack)/day in last 30 days entered on: 12/28/19 Sex
--- OUTSIDE RECORDS SUMMARY | 2024-03-11 05:45 | XMS_ITS | Continuity of Care Document ---
Author Organization [facility] Address [address] [place] [address]- Care Team Providers Care Admissions Gate Attendant Name Role Phone Madelin NAVARRO, Brian Primary Care Physician [place] [facility] [place] 05/28/20 [facility] [address] [place] [address]- [facility] Allergies, Adverse Reactions, Alerts Substance Reaction Severity [...]
--- OUTSIDE RECORDS SUMMARY | 2024-03-11 05:45 | XMS_ITS | Continuity of Care Document ---
Author Organization [facility] Address [address] [place] [address]- Care Team Providers Care Plug Cutter Name Role Phone Brian Yusuf NP Primary Care Physician [id number] Date[facility]18[facility] - 10/25/19 [facility] [address] [place] [address]- [facility] Attending Physician: Apoorva CORONADO, Ryan Downey Admitting [...] oldest [Reference Range]: 1 Height 165 cm (10/18/19 9:02 AM) Weight 90.72 kg (10/18/19 9:02 AM) Body Mass Index [18.5-24.99] 33.32 *>HHI* (10/18/19 9:02 AM) Blood Pressure [90-138/55-84 mm Hg] 154/ 94mm Hg *H* (10/18/19 9:02 AM) Blood pressure sites Arm, left (10/18/19 9:02 AM) Weight Obtained Via Patient/family state d (10/18/19 9:02 AM)
--- OUTSIDE RECORDS SUMMARY | 2024-03-11 05:46 | XMS_ITS | Continuity of Care Document ---
Author Organization [facility] Address [address] [place] [address]- Care Team Providers Care Paedodontist Name Role Phone Madelin NAVARRO, Brian Primary Care Physician Encounter [facility] Date(s): 04/28/20 - 05/28/20 [facility] [address] [place] [address]- [facility] Attending Physician: Lon Castellanos Admitting Physician: AdmLon [...]
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
[2024-03-11 05:50] LABS: MANUAL DIFF FLAG NO
[2024-03-11 05:53] LABS: Basophils Percent Auto 0.3 % (0-2); Eosinophils Absolute Auto 0.1 X10*3/uL (0.0-0.4); Eosinophils Percent Auto 1.9 % (0-4); Hematocrit 32.6 % (42.0-52.0); Hemoglobin 10.8 g/dl (14.0-18.0); Imm Gran Abs Auto 0.02 X10*3/uL (0.00-0.03); Imm Gran Pct Auto 0.3 % (0.0-0.4); Lymphocytes Percent Auto 15.3 % (20-40); Mean Corpuscular HGB Conc 33.1 g/dl (31.0-36.0); Mean Corpuscular Hemoglobin 30.7 pg (27.0-33.0); Mean Corpuscular Volume 92.6 fL (80.0-98.0); Monocytes Absolute Auto 0.5 X10*3/uL (0.1-1.2); Monocytes Percent Auto 7.4 % (2-11); Neutrophils Absolute Auto 4.8 x10*3/uL (2.0-8.3); Neutrophils Percent Auto 74.8 % (45-73); Platelet Count 220 X10*3/uL (160-400); Red Blood Count 3.52 X10*6/uL (4.60-5.80); White Blood Count 6.5 X10*3/uL (4.8-10.8)
[2024-03-11 06:00] VITALS: BP 152/101; PULSE 68; TEMP 36.6; O2SAT 99
[2024-03-11 06:20] LABS: Alanine Aminotransferase 45 U/L (0-40); Albumin Level 3.6 g/dL (3.5-5.0); Alkaline Phosphatase 84 U/L (39-117); Anion Gap 15 (12-20); Aspartate Amino Transferase 75 U/L (5-37); Bilirubin Direct 0.2 mg/dL (0.0-0.5); Bilirubin Total 0.5 mg/dL (0.0-1.0); Blood Urea Nitrogen 19 mg/dL (9-16); Calcium 8.5 mg/dL (8.4-10.2); Carbon Dioxide 24 mmol/L (22-29); Chloride 103 mmol/L (96-108); Creatinine Clr Calc Pharmacy 86.4; Estimated Glomerular Filt Rate > 60; Ethanol < 10 mg/dL; Glucose Random 89 mg/dL (60-115); Potassium 3.3 mmol/L (3.3-5.1); Sodium 139 mmol/L (135-145); Total Protein 6.3 g/dL (6.5-8.0)
[2024-03-11 08:23] VITALS: BP 148/78
== END 2024-03-11 10:43 | disposition home or self-care (01) ==
PROVIDERS: Emergency Provider Emergency Medicine Emergency Medical Services; PCP Nurse Practitioner Family
DX: S09.90XA Unspecified injury of head, initial encounter (principal); S01.01XA Laceration without foreign body of scalp, initial encounter; Y00.XXXA Assault by blunt object, initial encounter; N13.4 Hydroureter; N20.1 Calculus of ureter; Y93.55 Activity, bike riding; Y92.410 Unspecified street and highway as the place of occurrence of the external cause; Y99.9 Unspecified external cause status; Z23 Encounter for immunization; F17.210 Nicotine dependence, cigarettes, uncomplicated; Z79.899 Other long term (current) drug therapy; F11.20 Opioid dependence, uncomplicated
CPT/HCPCS: 12004; 36415; 70450; 71045; 72125; 73552; 74176; 80048; 80076; 80307; 85025; 90471; 90715; 99284

== ENCOUNTER 2024-04-27 05:14 | Emergency (ER) | payer OTHER, SELFPAY ==
--- NOTE | ~2024-04-27 | XR_ITS ---
EXAMINATION: XR CHEST CLINICAL INFORMATION: Asthma COMPARISON: 03/11/2024 TECHNIQUE: PA view of the chest was obtained. FINDINGS: Bilateral nipple shadows are noted. A calcified granuloma is present aspect of the right lung base. Lungs are hyperexpanded. No consolidation, pneumothorax, or pleural effusion. Cardiac and mediastinal contours are normal. Pulmonary vasculature is unremarkable. Degenerative disc disease in the thoracic spine. XR/XR chest 1V IMPRESSION: Hyperexpanded lungs. No acute pulmonary findings.
[2024-04-27 05:22] VITALS: BP 118/64; PULSE 72; RESP 20; TEMP 36.6; O2SAT 100; BMI 25.0
--- NOTE | 2024-04-27 05:57 | ED_ITS ---
HPI - Asthma General Chief Complaint: Asthma Stated Complaint: asthma Time Seen by Provider: 04/27/24 05:46 Source: patient Mode of arrival: ambulatory Limitations: no limitations History of Present Illness ED Provider: olvin RAUSCH Narrative: Patient is smoker with history of asthmacomes here for increased shortness of breath and cough for last few hours as ran out of his inhaler. Has dry cough no fever no chills Related Data Previous Rx's ?Medication ?Instructions ?Recorded albuterol sulfate 90 mcg/actuation 2 puff inhalation Q4-6H PRN 05/30/21 aerosol inhaler shortness of breath or wheezing #8.5 grams azithromycin 250 mg tablet See Rx Instructions PO .COMPLEX #6 05/30/21 (Zithromax Z-Santos) tabs prednisone 20 mg tablet 60 mg (3 x 20 mg) PO DAILY 5 days 05/30/21 #15 tabs albuterol sulfate 90 mcg/actuation 1 inh inhalation QID PRN shortness 10/11/21 aerosol inhaler (Ventolin HFA) of breath or wheezing #8.5 grams azithromycin 250 mg tablet 250 mg PO DAILY 4 days #4 tabs 10/11/21 prednisone 20 mg tablet 60 mg (3 x 20 mg) PO DAILY 4 days 10/11/21 #12 tabs acetaminophen 325 mg capsule 325 mg PO Q4H PRN pain #30 caps 01/11/24 (Tylenol) albuterol sulfate 90 mcg/actuation 2 inh inhalation Q4-6H PRN 01/11/24 breath activated powder inhaler shortness of breath or wheezing #1 ea prednisone 20 mg tablet 40 mg (2 x 20 mg) PO DAILY 5 days 01/11/24 #10 tabs albuterol sulfate 90 mcg/actuation 2 puff inhalation Q20M PRN 02/11/24 aerosol inhaler shortness of breath or wheezing #8.5 grams prednisone 50 mg tablet 50 mg PO DAILY 5 days #5 tabs 02/11/24 tamsulosin 0.4 mg capsule 0.4 mg PO DAILY 7 days #7 caps 03/11/24 albuterol sulfate 90 mcg/actuation 2 puff inhalation Q6H PRN 04/27/24 aerosol inhaler shortness of breath or wheezing #8.5 grams prednisone 20 mg tablet 40 mg (2 x 20 mg) PO DAILY #10 tabs 04/27/24 Allergies Allergy/AdvReac Type Severity Reaction Status Date / Time No Known Allergies Allergy Verified 04/27/24 05:26 [No Known Allergies*] Review of Systems Review of Systems: Yes all other systems are reviewed and are negative [facility] Past Medical History Medical History Asthma Social History Social History Alcohol intake: unknown Patient Tobacco Use Status: Current everyday Tobacco user Do you have a plan to hurt others: No Plan Physical Exam Vital Signs: Vital Signs: Last Vital Signs Temp 97.9 F 04/27/24 05:22 Pulse 72 04/27/24 05:22 Resp 20 04/27/24 05:22 BP 118/64 04/27/24 05:22 Pulse Ox 100 04/27/24 05:22 O2 Del Method Room Air 04/27/24 05:22 BMI result Body Mass Index 25.0 Appearance: Alert. Oriented X3. No acute distress. Eyes: No pallor or icterus ENT: Pharynx normal. Oral Mucosa moist Neck: Normal inspection. Neck supple. CVS: Normal heart rate and rhythm. Pulses normal. Respiratory: No respiratory distress. Equal air entry bilateral, bilateral prolonged expiration Abdomen: Soft and nontender. Bowel sounds are present, no mass palpable, no CVA tenderness Skin: Skin warm and dry. Normal skin color. Normal skin turgor. Extremities: No lower extremity edema. No calf tenderness Neuro: Oriented X 3. Medical Decision Making Medical Decision Making MDM Narrative: Patient's asthma/COPD smoker comes here for shortness of breath as ran out of his inhaler saturating 100% room air will give prednisone and nebulizing treatment discharge home Differential Diagnosis Differential Diagnoses: The differential diagnosis associated with the presentation includes Discharge Plan Discharge Clinical Impression: Chronic obstructive asthma with exacerbation Patient Disposition: Home, Self-Care Instructions: COPD (Chronic Obstructive Pulmonary Disease) (ED) Additional Instructions: Use inhaler as prescribed Prednisone as prescribed Stop smoking Prescriptions: New prednisone 20 mg tablet 40 mg PO DAILY Qty: 10 0RF albuterol sulfate 90 mcg/actuation HFA aerosol inhaler 2 puff inhalation Q6H PRN (Reason: shortness of breath or wheezing) Qty: 8.5 0RF No Action albuterol sulfate 90 mcg/actuation HFA aerosol inhaler 2 puff inhalation Q4-6H PRN (Reason: shortness of breath or wheezing) Qty: 8.5 0RF azithromycin [Zithromax Z-Santos] 250 mg tablet See Rx Instructions .ROUTE .COMPLEX Qty: 6 0RF Rx Instructions: take 500 mg today (day 1), then 250 mg for 4 days (days 2-5) prednisone 20 mg tablet 60 mg PO DAILY 5 Days Qty: 15 0RF prednisone 20 mg tablet 60 mg PO DAILY 4 Days Qty: 12 0RF albuterol sulfate [Ventolin HFA] 90 mcg/actuation HFA aerosol inhaler 1 inh inhalation QID PRN (Reason: shortness of breath or wheezing) Qty: 8.5 1RF azithromycin 250 mg tablet 250 mg PO DAILY 4 Days Qty: 4 0RF Rx Instructions: start on day 2 of therapy acetaminophen [Tylenol] 325 mg capsule 325 mg PO Q4H PRN (Reason: pain) Qty: 30 0RF prednisone 20 mg tablet 40 mg PO DAILY 5 Days Qty: 10 0RF albuterol sulfate 90 mcg/actuation aerosol powdr breath activated 2 inh inhalation Q4-6H PRN (Reason: shortness of breath or wheezing) Qty: 1 0RF prednisone 50 mg tablet 50 mg PO DAILY 5 Days Qty: 5 0RF albuterol sulfate 90 mcg/actuation HFA aerosol inhaler 2 puff inhalation Q20M PRN (Reason: shortness of breath or wheezing) Qty: 8.5 0RF tamsulosin 0.4 mg capsule 0.4 mg PO DAILY 7 Days Qty: 7 0RF Print Language: English
[2024-04-27] MEDS: predniSONE 20 MG TABLET 40 MG PO (06:09)
[2024-04-27] MEDS: Albuterol/Iprat 2.5/0.5MG 3 ML AMPUL.NEB INHALE (06:25)
[2024-04-27 06:27] VITALS: PULSE 71; RESP 18; O2SAT 98
[2024-04-27 06:42] VITALS: BP 114/60; PULSE 70; RESP 18; O2SAT 100
[2024-04-27 06:43] VITALS: BP 114/60; PULSE 70; RESP 18; TEMP 36.6; O2SAT 100
== END 2024-04-27 06:44 | disposition home or self-care (01) ==
PROVIDERS: Emergency Provider Internal Medicine; PCP Internal Medicine Pulmonary Disease
DX: J44.1 Chronic obstructive pulmonary disease with (acute) exacerbation (principal); R06.02 Shortness of breath
CPT/HCPCS: 71045; 94640; 99284

== ENCOUNTER 2024-05-14 02:57 | Emergency (ER) | payer OTHER, SELFPAY ==
[2024-05-14 03:12] VITALS: BP 167/78; PULSE 98; RESP 18; TEMP 36.9; O2SAT 100; BMI 23.4
--- NOTE | 2024-05-14 03:28 | PC.NURSE ---
pt from home a&ox4, respirations even and unlabored. pt reporting onset of bilateral leg swelling, redness and pain. pt reports this has been increasing x2 weeks. pt left lef noted to be warm to touch, with multiple scabs, pt right leg noted to be slightly warm to touch with multiple scabs. left leg significantly swollen. pt denies n/v/d. 20G placed in left forearm, labs obtained and sent.
[2024-05-14 03:29] LABS: MANUAL DIFF FLAG NO
[2024-05-14 03:30] LABS: Basophils Percent Auto 0.3 % (0-2); Eosinophils Percent Auto 0.5 % (0-4); Hemoglobin 11.6 g/dl (14.0-18.0); Imm Gran Abs Auto 0.02 X10*3/uL (0.00-0.03); Imm Gran Pct Auto 0.3 % (0.0-0.4); Lymphocytes Absolute Auto 1.1 X10*3/uL (1.2-4.9); Lymphocytes Percent Auto 16.7 % (20-40); Mean Corpuscular HGB Conc 33.1 g/dl (31.0-36.0); Mean Corpuscular Hemoglobin 30.5 pg (27.0-33.0); Mean Corpuscular Volume 92.1 fL (80.0-98.0); Mean Platelet Volume 8.8 fL (9.4-12.4); Monocytes Absolute Auto 0.5 X10*3/uL (0.1-1.2); Monocytes Percent Auto 8.3 % (2-11); Neutrophils Absolute Auto 4.7 x10*3/uL (2.0-8.3); Neutrophils Percent Auto 73.9 % (45-73); Platelet Count 279 X10*3/uL (160-400); Red Cell Distribution Width 12.9 % (11.0-16.0); White Blood Count 6.4 X10*3/uL (4.8-10.8)
[2024-05-14 03:48] LABS: Alanine Aminotransferase 23 U/L (0-40); Alkaline Phosphatase 100 U/L (39-117); Anion Gap 14 (12-20); Aspartate Amino Transferase 31 U/L (5-37); Bilirubin Total 0.3 mg/dL (0.0-1.0); Blood Urea Nitrogen 14 mg/dL (9-16); Calcium 9.4 mg/dL (8.4-10.2); Carbon Dioxide 26 mmol/L (22-29); Chloride 104 mmol/L (96-108); Creatinine Clr Calc Pharmacy 79.6; Estimated Glomerular Filt Rate > 60; Glucose Random 84 mg/dL (60-115); Potassium 3.3 mmol/L (3.3-5.1); Sodium 141 mmol/L (135-145); Total Protein 7.6 g/dL (6.5-8.0)
--- NOTE | 2024-05-14 03:51 | ED.GENADULT ---
HPI - General Adult General Chief complaint: Skin/Abscess/Foreign Body Stated complaint: Leg infection Time Seen by Provider: 05/14/24 03:43 Source: patient Mode of arrival: ambulatory Limitations: no limitations History of Present Illness ED Provider: DR. Loredo HPI narrative: 58-year-old homeless male came in for evaluation of left pierce infection x2 weeks, no trauma, no history of IV drug abuse. Patient also been complaining of mid abdominal pain for 10 days with no nausea or vomiting or diarrhea, patient is asking for food while in the emergency department and eating with no acute distress. No fever, no chills. Related Data Previous Rx's ?Medication ?Instructions ?Recorded albuterol sulfate 90 mcg/actuation 2 puff inhalation Q4-6H PRN 05/30/21 aerosol inhaler shortness of breath or wheezing #8.5 grams azithromycin 250 mg tablet See Rx Instructions PO .COMPLEX #6 05/30/21 (Zithromax Z-Santos) tabs prednisone 20 mg tablet 60 mg (3 x 20 mg) PO DAILY 5 days 05/30/21 #15 tabs albuterol sulfate 90 mcg/actuation 1 inh inhalation QID PRN shortness 10/11/21 aerosol inhaler (Ventolin HFA) of breath or wheezing #8.5 grams azithromycin 250 mg tablet 250 mg PO DAILY 4 days #4 tabs 10/11/21 prednisone 20 mg tablet 60 mg (3 x 20 mg) PO DAILY 4 days 10/11/21 #12 tabs acetaminophen 325 mg capsule 325 mg PO Q4H PRN pain #30 caps 01/11/24 (Tylenol) albuterol sulfate 90 mcg/actuation 2 inh inhalation Q4-6H PRN 01/11/24 breath activated powder inhaler shortness of breath or wheezing #1 ea prednisone 20 mg tablet 40 mg (2 x 20 mg) PO DAILY 5 days 01/11/24 #10 tabs albuterol sulfate 90 mcg/actuation 2 puff inhalation Q20M PRN 02/11/24 aerosol inhaler shortness of breath or wheezing #8.5 grams prednisone 50 mg tablet 50 mg PO DAILY 5 days #5 tabs 02/11/24 tamsulosin 0.4 mg capsule 0.4 mg PO DAILY 7 days #7 caps 03/11/24 albuterol sulfate 90 mcg/actuation 2 puff inhalation Q6H PRN 04/27/24 aerosol inhaler shortness of breath or wheezing #8.5 grams prednisone 20 mg tablet 40 mg (2 x 20 mg) PO DAILY #10 tabs 04/27/24 doxycycline hyclate 100 mg tablet 100 mg PO BID #20 tabs 05/14/24 Allergies Allergy/AdvReac Type Severity Reaction Status Date / Time No Known Allergies Allergy Verified 05/14/24 03:15 [No Known Allergies*] Review of Systems Review of Systems: All other systems are reviewed and are negative Constitutional: Reports as per HPI and Reports no additional constitutional complaints Eyes: Reports as per HPI and Reports no additional eye complaints Reports system reviewed and no additional complaints, except as documented Cardiovascular: Reports as per HPI and Reports no additional cardiovascular complaints Respiratory: Reports as per HPI and Reports no additional respiratory complaints Gastrointestinal: Reports as per HPI and Reports no additional gastrointestinal complaints Genitourinary: Reports no additional female genitourinary complaints Musculoskeletal: Reports no additional musculoskeletal complaints Skin/Breast: Reports system reviewed and no additional complaints, except as docu Psychiatric: Reports no additional psychiatric complaints Endocrine: Reports no additional endocrine complaints Hematologic/Lymphatic: Reports no additional hematologic/lymphatic complaints Allergic/Immunologic: Reports no additional allergic/immunologic complaints Reports system reviewed and no additional complaints, except as documented and Reports Abnormal speech present [facility] Past Medical History Medical History Asthma Social History Social History Alcohol intake: unknown Patient Tobacco Use Status: Current everyday Tobacco user Smoked in Last 30 Days: No Use of substances other than those prescribed or required for medical reasons: Yes Substance Use Type: Heroin Advance Directives: No Advance Directives Information Provided: Yes Physical Exam ED Vital Signs: Vital Signs - 24 hr 05/14/24 03:12 05/14/24 04:00 Temperature 98.4 F 97.7 F Pulse Rate 98 80 Respiratory Rate 18 12 Blood Pressure 167/78 H 122/64 Pulse Oximetry 100 98 Oxygen Delivery Method Room Air Room Air BMI result Body Mass Index 23.4 Vital signs have been reviewed and appear to be correct. Blood pressure elevated. Heart rate normal. Respiratory rate normal. Temperature normal. Oxygen saturation normal. Appearance: Alert. Oriented X3. No acute distress. Head: Normal external exam. Normocephalic. Atraumatic. No Jerez signs noted. No raccoon eyes noted Eyes: PERRLA. EOMI. Conjunctiva and sclera normal. Eyelids normal. ENT: TM's Normal. Pharynx normal. Uvula midline. Moist mucous membranes. No trismus noted. No drooling noted. No muffled voice noted. Neck: Normal inspection. Neck supple. FROM. No adenopathy. Thyroid Normal. No meningeal signs. No neck mass noted. CVS: Normal heart rate and rhythm. Heart sound normal. No murmurs noted. Pulses normal throughout. Respiratory: No respiratory distress. Painless inspiration. Breath sounds normal. No wheezes/rales/rhonchi noted. Chest nontender. No accessory muscle usage noted or decreased air movement noted. Abdomen: Soft and nontender. Bowel sounds normal in all 4 quadrants. No distention noted. No organomegaly noted. No visible injury noted. Back: No CVA tenderness. Full range of motion noted. Skin: Skin warm and dry. Normal skin color. Normal skin turgor. No rashes/lesions/lacerations noted. Extremities: 5 x 5 cm area of redness and hotness on the left pierce. Neuro: Oriented X 3. Cranial nerve exam: II-XII are grossly intact No motor deficit. No sensory deficit. Reflexes normal. Course Course Course Narrative: 58-year-old male with left pierce cellulitis, no sepsis. Will start the patient on doxycycline. Complaining of 10 days of abdominal pain has improved now and able to tolerate p.o. intake in the ED. Medications Administered Discontinued Medications Generic Name Dose Route Start Last Admin Trade Name Freq PRN Reason Stop Dose Admin Doxycycline Monohydrate 100 mg 05/14/24 03:44 05/14/24 04:19 Doxycycline Monohydrate 100 Mg Capsule PO 05/14/24 03:45 100 mg ONCE ONE Administration Medical Decision Making Differential Diagnosis Differential Diagnoses: The differential diagnosis associated with the presentation includes ( cellulitis, abscess, severe anemia, electrolyte derangement, sepsis, gastroenteritis) Admission/Observation Consideration of admission/observation: Escalation of care including admission/observation considered Lab Data MDM Lab Attestation statement: I reviewed the patient's lab results. 05/14/24 03:23 05/14/24 03:23 Labs: Lab Results 05/14/24 Range/Units 03:23 WBC 6.4 (4.8-10.8) X10*3/uL RBC 3.80 L (4.60-5.80) X10*6/uL Hgb 11.6 L (14.0-18.0) g/dl Hct 35.0 L (42.0-52.0) % MCV 92.1 (80.0-98.0) fL MCH 30.5 (27.0-33.0) pg MCHC 33.1 (31.0-36.0) g/dl RDW 12.9 (11.0-16.0) % Plt Count 279 D (160-400) X10*3/uL MPV 8.8 L (9.4-12.4) fL Immature Gran % (Auto) 0.3 (0.0-0.4) % Neut % (Auto) 73.9 H (45-73) % Lymph % (Auto) 16.7 L (20-40) % [place] % (Auto) 8.3 (2-11) % Eos % (Auto) 0.5 (0-4) % Baso % (Auto) 0.3 (0-2) % Lymph # (Auto) 1.1 L (1.2-4.9) X10*3/uL [place] # (Auto) 0.5 (0.1-1.2) X10*3/uL Eos # (Auto) 0.0 (0.0-0.4) X10*3/uL Baso # (Auto) 0.0 (0.0-0.2) X10*3/uL Abs Immat Gran (auto) 0.02 (0.00-0.03) X10*3/uL Absolute Neuts (auto) 4.7 (2.0-8.3) x10*3/uL Absolute Nucleated RBC 0.000 (0.0-0.012) X10*3/uL Nucleated RBC % (auto) 0.0 (0.0-0.2) /100WBC Sodium 141 (135-145) mmol/L Potassium 3.3 (3.3-5.1) mmol/L Chloride 104 (96-108) mmol/L Carbon Dioxide 26 (22-29) mmol/L Anion Gap 14 (12-20) BUN 14 (9-16) mg/dL Creatinine 0.89 (0.5-1.4) mg/dL Estim Creat Clear Calc 79.6 Estimated GFR > 60 Random Glucose 84 (60-115) mg/dL Calcium 9.4 D (8.4-10.2) mg/dL Total Bilirubin 0.3 (0.0-1.0) mg/dL AST 31 (5-37) U/L ALT 23 (0-40) U/L Alkaline Phosphatase 100 (39-117) U/L Total Protein 7.6 (6.5-8.0) g/dL Albumin 4.0 (3.5-5.0) g/dL Discharge Plan Discharge Clinical Impression: Cellulitis of left leg Patient Disposition: Home, Self-Care Instructions: Cellulitis (ED) Additional Instructions: follow-up with your PCP in 1 week. Prescriptions: New doxycycline hyclate 100 mg tablet 100 mg PO BID Qty: 20 0RF No Action albuterol sulfate 90 mcg/actuation HFA aerosol inhaler 2 puff inhalation Q4-6H PRN (Reason: shortness of breath or wheezing) Qty: 8.5 0RF azithromycin [Zithromax Z-Santos] 250 mg tablet See Rx Instructions .ROUTE .COMPLEX Qty: 6 0RF Rx Instructions: take 500 mg today (day 1), then 250 mg for 4 days (days 2-5) prednisone 20 mg tablet 60 mg PO DAILY 5 Days Qty: 15 0RF prednisone 20 mg tablet 60 mg PO DAILY 4 Days Qty: 12 0RF albuterol sulfate [Ventolin HFA] 90 mcg/actuation HFA aerosol inhaler 1 inh inhalation QID PRN (Reason: shortness of breath or wheezing) Qty: 8.5 1RF azithromycin 250 mg tablet 250 mg PO DAILY 4 Days Qty: 4 0RF Rx Instructions: start on day 2 of therapy acetaminophen [Tylenol] 325 mg capsule 325 mg PO Q4H PRN (Reason: pain) Qty: 30 0RF prednisone 20 mg tablet 40 mg PO DAILY 5 Days Qty: 10 0RF albuterol sulfate 90 mcg/actuation aerosol powdr breath activated 2 inh inhalation Q4-6H PRN (Reason: shortness of breath or wheezing) Qty: 1 0RF prednisone 20 mg tablet 40 mg PO DAILY Qty: 10 0RF albuterol sulfate 90 mcg/actuation HFA aerosol inhaler 2 puff inhalation Q6H PRN (Reason: shortness of breath or wheezing) Qty: 8.5 0RF prednisone 50 mg tablet 50 mg PO DAILY 5 Days Qty: 5 0RF albuterol sulfate 90 mcg/actuation HFA aerosol inhaler 2 puff inhalation Q20M PRN (Reason: shortness of breath or wheezing) Qty: 8.5 0RF tamsulosin 0.4 mg capsule 0.4 mg PO DAILY 7 Days Qty: 7 0RF Print Language: Brazilian
[2024-05-14 04:00] VITALS: BP 122/64; PULSE 80; RESP 12; TEMP 36.5; O2SAT 98
[2024-05-14] MEDS: Doxycycline Monohydrate 100 MG CAPSULE PO (04:19)
--- NOTE | 2024-05-14 04:27 | PC.NURSE ---
pt medicated per mar, tolerated well with water.
[2024-05-14 06:00] VITALS: BP 129/70; PULSE 69; RESP 14; TEMP 36.4; O2SAT 99
[2024-05-14 06:35] VITALS: BP 129/70; PULSE 69; RESP 14; TEMP 36.4; O2SAT 99
== END 2024-05-14 06:35 | disposition home or self-care (01) ==
PROVIDERS: Emergency Provider Emergency Medicine
DX: L03.116 Cellulitis of left lower limb (principal); Z59.00 Homelessness unspecified; F17.210 Nicotine dependence, cigarettes, uncomplicated
CPT/HCPCS: 36415; 80053; 85025; 99283; 99284

== ENCOUNTER 2024-05-17 02:41 | Emergency (ER) | payer OTHER, SELFPAY ==
[2024-05-17 02:46] VITALS: BP 128/80; PULSE 72; RESP 20; TEMP 36.9; O2SAT 100; BMI 25.8
--- NOTE | 2024-05-17 05:35 | PC.NURSE ---
pt from home, a&ox4, respirations even and unlabored. pt reporting being discharged previously this week on antibiotic for infection, reports left calf pain that has not gone away. pt ambulatory with steady gait, reports pain is 10/10. left leg noted to be red, tender to touch with notable scabs.
[2024-05-17 06:00] VITALS: BP 164/82; PULSE 69; RESP 16; TEMP 36.6; O2SAT 100
[2024-05-17 06:06] LABS: Basophils Percent Auto 0.2 % (0-2); Eosinophils Percent Auto 0.5 % (0-4); Hemoglobin 10.2 g/dl (14.0-18.0); Imm Gran Abs Auto 0.01 X10*3/uL (0.00-0.03); Imm Gran Pct Auto 0.2 % (0.0-0.4); Lymphocytes Absolute Auto 1.6 X10*3/uL (1.2-4.9); Lymphocytes Percent Auto 27.1 % (20-40); MANUAL DIFF FLAG NO; Mean Corpuscular Volume 91.2 fL (80.0-98.0); Monocytes Absolute Auto 0.4 X10*3/uL (0.1-1.2); Neutrophils Absolute Auto 3.7 x10*3/uL (2.0-8.3); Platelet Count 268 X10*3/uL (160-400); Red Blood Count 3.29 X10*6/uL (4.60-5.80); Red Cell Distribution Width 12.8 % (11.0-16.0); White Blood Count 5.7 X10*3/uL (4.8-10.8)
[2024-05-17 06:17] LABS: Alanine Aminotransferase 18 U/L (0-40); Albumin Level 3.5 g/dL (3.5-5.0); Alkaline Phosphatase 86 U/L (39-117); Anion Gap 13 (12-20); Aspartate Amino Transferase 23 U/L (5-37); Bilirubin Total 0.3 mg/dL (0.0-1.0); Blood Urea Nitrogen 22 mg/dL (9-16); Calcium 9.1 mg/dL (8.4-10.2); Carbon Dioxide 28 mmol/L (22-29); Chloride 105 mmol/L (96-108); Creatinine Clr Calc Pharmacy 84.3; Estimated Glomerular Filt Rate > 60; Glucose Random 76 mg/dL (60-115); Potassium 3.6 mmol/L (3.3-5.1); Sodium 142 mmol/L (135-145); Total Protein 6.8 g/dL (6.5-8.0)
--- NOTE | 2024-05-17 06:36 | ED_ITS ---
HPI - Extremity Problem General Chief complaint: Extremity Problem Stated complaint: pain in lower legs Time Seen by Provider: 05/17/24 06:35 Source: patient, RN notes reviewed and old records reviewed Mode of arrival: ambulatory History of Present Illness ED Provider: Radha Medel PA-C HPI Narrative: 58-year-old male with past medical history of asthma presenting to the ED complaining of chest pain and bilateral LE pain x days. Patient states he was seen at [facility] last night & had labs/ultrasound and was prescribed antibiotics (Doxycycline and Keflex) which he took 1 dose of however came here due to persistent pain. Denies symptoms worsening since last night. Denies SOB, abdominal pain, nausea/vomiting, numbness/tingling, calf pain. Denies trying anything for pain. Admits to IVDA, denies injecting into lower extremities Related Data Previous Rx's ?Medication ?Instructions ?Recorded albuterol sulfate 90 mcg/actuation 2 puff inhalation Q4-6H PRN 05/30/21 aerosol inhaler shortness of breath or wheezing #8.5 grams azithromycin 250 mg tablet See Rx Instructions PO .COMPLEX #6 05/30/21 (Zithromax Z-Santos) tabs prednisone 20 mg tablet 60 mg (3 x 20 mg) PO DAILY 5 days 05/30/21 #15 tabs albuterol sulfate 90 mcg/actuation 1 inh inhalation QID PRN shortness 10/11/21 aerosol inhaler (Ventolin HFA) of breath or wheezing #8.5 grams azithromycin 250 mg tablet 250 mg PO DAILY 4 days #4 tabs 10/11/21 prednisone 20 mg tablet 60 mg (3 x 20 mg) PO DAILY 4 days 10/11/21 #12 tabs acetaminophen 325 mg capsule 325 mg PO Q4H PRN pain #30 caps 01/11/24 (Tylenol) albuterol sulfate 90 mcg/actuation 2 inh inhalation Q4-6H PRN 01/11/24 breath activated powder inhaler shortness of breath or wheezing #1 ea prednisone 20 mg tablet 40 mg (2 x 20 mg) PO DAILY 5 days 01/11/24 #10 tabs albuterol sulfate 90 mcg/actuation 2 puff inhalation Q20M PRN 02/11/24 aerosol inhaler shortness of breath or wheezing #8.5 grams prednisone 50 mg tablet 50 mg PO DAILY 5 days #5 tabs 02/11/24 tamsulosin 0.4 mg capsule 0.4 mg PO DAILY 7 days #7 caps 03/11/24 albuterol sulfate 90 mcg/actuation 2 puff inhalation Q6H PRN 04/27/24 aerosol inhaler shortness of breath or wheezing #8.5 grams prednisone 20 mg tablet 40 mg (2 x 20 mg) PO DAILY #10 tabs 04/27/24 doxycycline hyclate 100 mg tablet 100 mg PO BID #20 tabs 05/14/24 acetaminophen 500 mg tablet 500 mg PO Q6H PRN fever or pain 05/17/24 (Tylenol Extra Strength) #14 tabs ibuprofen 800 mg tablet 800 mg PO Q8H PRN pain #14 tabs 05/17/24 Allergies Allergy/AdvReac Type Severity Reaction Status Date / Time No Known Allergies Allergy Verified 05/17/24 02:48 [No Known Allergies*] Review of Systems 2 Review of Systems: Constitutional: No Fever, No Chills ENT/Mouth: No Ear Pain, No Nasal Congestion, No sore throat, No Rhinorrhea, No Swallowing Difficulty Cardiovascular: + Chest Pain, No SOB Respiratory: No Cough Gastrointestinal: No Nausea, No Vomiting, No Diarrhea, No Constipation, No Abdominal pain Genitourinary: No Dysuria, No Urinary Frequency, No Hematuria, No Flank Pain Musculoskeletal: + joint pain, No Myalgias, No Joint Swelling Skin: +Skin Lesions, No rash Neuro: No Weakness, No Numbness, No Paresthesias Yes all other systems are reviewed and are negative Constitutional: Constitutional: Reports as per [facility] Past Medical History Attestation statement: The following information was validated with the patient. Source: old records reviewed Medical History Asthma Social History Social History Alcohol intake: unknown Patient Tobacco Use Status: Current everyday Tobacco user Smoked in Last 30 Days: No Use of substances other than those prescribed or required for medical reasons: No Substance Use Type: Heroin Advance Directives: No Advance Directives Information Provided: No Do you have a plan to hurt others: No Plan Physical Exam 2 Vital Signs: Vital Signs: Last Vital Signs Temp 97.9 F 05/17/24 06:00 Pulse 56 05/17/24 07:19 Resp 14 05/17/24 07:19 BP 145/80 H 05/17/24 07:19 Pulse Ox 100 05/17/24 07:19 O2 Del Method Room Air 05/17/24 07:19 BMI result Body Mass Index 25.8 Const: General: cooperative, healthy appearing and no acute distress O rientation/consciousness: patient oriented x3 Limitations: no limitations HEENT: Head: Yes normal to inspection and Yes atraumatic Ears: hearing grossly normal bilaterally General nose exam: Normal external nose present Face and sinus: Yes normal facial exam Eyes: General: appearance normal, both eyes and all related structures EOM: EOMs intact bilaterally Neck: Neck: Yes normal visual inspection and Yes no meningeal signs Resp: Effort & Inspection: normal respiratory effort and no respiratory distress Auscultation: clear to auscultation bilaterally Cardio: Rate: regular rate Heart sounds: S1 normal heart sound present and S2 normal heart sound present Peripheral pulses: Peripheral pulses 2+ throughout Skin: Rashes: no rashes Neuro: General: patient oriented x3, tone normal and no meningeal signs C ranial nerves: Yes CN's II-XII intact bilaterally Gait exam (Neuro): Normal gait present Extrem: Other: Patient found to images above. Bilateral LE with healing scabs with surrounding erythema > left lower extremity with warmth. Neurovascular intact distally. No crepitus. No lymphangitis Course Course Course Narrative: -730--no leukocytosis. H / H patient's baseline. -obtain records from [facility] patient was evaluated after being found on the ground complaining of abdominal pain by police/EMS. Reportedly patient was [facility] for left lower extremity cellulitis but did not bulk picker his antibiotics. Was given vancomycin and Zosyn in the ED. Patient had head CT which was unremarkable and CT abdomen/pelvis which revealed a 4 mm distal left ureter stone which he was prescribed Flomax. -troponin and BNP WNL > patient has prescription of doxycycline, Keflex, and Flomax at bedside. Will give dose this morning and plan for discharge Results discussed with patient including worrisome signs and symptoms and strict return precautions, and when to return to the emergency department. They verbalized understanding and feel safe for discharge at this time. Medications Administered Discontinued Medications Generic Name Dose Route Start Last Admin Trade Name Freq PRN Reason Stop Dose Admin Cephalexin HCl 500 mg 05/17/24 07:30 05/17/24 07:41 Cephalexin 500 Mg Capsule PO 05/17/24 07:31 500 mg ONCE ONE Administration Doxycycline Monohydrate 100 mg 05/17/24 07:30 05/17/24 07:41 Doxycycline Monohydrate 100 Mg Capsule PO 05/17/24 07:31 100 mg ONCE ONE Administration Ketorolac Tromethamine 30 mg 05/17/24 06:58 05/17/24 07:15 Ketorolac Tromethamine 30 Mg/Ml Vial IM 05/17/24 06:59 30 mg ONCE ONE Administration Medical Decision Making Medical Decision Making MDM Narrative: 58-year-old male with past medical history of asthma presenting to the ED complaining of chest pain and bilateral LE pain x days. On exam vital signs stable, afebrile, NAD, nontoxic appearing, sleeping on initial evaluation, physical exam as above, please refer to images. Concern for cellulitis. Lower suspicion for DVT, osteomyelitis, ACS/PE. Will try to obtain records from [facility] from yesterday Plan: Labs, pain control Of note patient was evaluated in our ED on 05/14 for similar symptoms prescribed doxycycline which she never picked up Please refer to course for remaining clinical decision making, interpretation of labs/imaging results, and discussions with consultants and/or family members. Differential Diagnosis Differential Diagnoses: The differential diagnosis associated with the presentation includes As above Admission/Observation Consideration of admission/observation: Escalation of care including admission/observation considered Lab Data [facility] Lab Attestation statement: I reviewed the patient's lab results. 05/17/24 05:55 05/17/24 05:55 Labs: Lab Results 05/17/24 Range/Units 05:55 WBC 5.7 (4.8-10.8) X10*3/uL RBC 3.29 L (4.60-5.80) X10*6/uL Hgb 10.2 L (14.0-18.0) g/dl Hct 30.0 L (42.0-52.0) % MCV 91.2 (80.0-98.0) fL MCH 31.0 (27.0-33.0) pg MCHC 34.0 (31.0-36.0) g/dl RDW 12.8 (11.0-16.0) % Plt Count 268 (160-400) X10*3/uL MPV 9.0 L (9.4-12.4) fL Immature Gran % (Auto) 0.2 (0.0-0.4) % Neut % (Auto) 65.0 (45-73) % Lymph % (Auto) 27.1 (20-40) % [place] % (Auto) 7.0 (2-11) % Eos % (Auto) 0.5 (0-4) % Baso % (Auto) 0.2 (0-2) % Lymph # (Auto) 1.6 (1.2-4.9) X10*3/uL [place] # (Auto) 0.4 (0.1-1.2) X10*3/uL Eos # (Auto) 0.0 (0.0-0.4) X10*3/uL Baso # (Auto) 0.0 (0.0-0.2) X10*3/uL Abs Immat Gran (auto) 0.01 (0.00-0.03) X10*3/uL Absolute Neuts (auto) 3.7 (2.0-8.3) x10*3/uL Absolute Nucleated RBC 0.000 (0.0-0.012) X10*3/uL Nucleated RBC % (auto) 0.0 (0.0-0.2) /100WBC Sodium 142 (135-145) mmol/L Potassium 3.6 (3.3-5.1) mmol/L Chloride 105 (96-108) mmol/L Carbon Dioxide 28 (22-29) mmol/L Anion Gap 13 (12-20) BUN 22 H (9-16) mg/dL Creatinine 0.84 (0.5-1.4) mg/dL Estim Creat Clear Calc 84.3 Estimated GFR > 60 Random Glucose 76 (60-115) mg/dL Calcium 9.1 (8.4-10.2) mg/dL Total Bilirubin 0.3 (0.0-1.0) mg/dL AST 23 (5-37) U/L ALT 18 (0-40) U/L Alkaline Phosphatase 86 (39-117) U/L Troponin I High Sens < 2.7 (<3.5-35.0) ng/L B-Natriuretic Peptide 67 (<100) pg/mL Total Protein 6.8 (6.5-8.0) g/dL Albumin 3.5 (3.5-5.0) g/dL Radiology Impression Discussion of test interpretation with radiology: I have reviewed the radiologist's reading. External Record Review External record reviewed: Inpatient record, Office record, Outpatient record, Prior outpatient labs, Prior outpatient radiology, Primary care record and Outside ED record Tests considered The following testing was considered but not selected: As above Prescription Management I considered prescription management with: Pain Medication and Antibiotic Social Determinants Patient?s care significantly limited by Social Determinants of Health including: Inadequate housing, Low income, Alcoholism and drug addiction in family and Problems related to primary support group Discharge Plan Discharge Clinical Impression: Cellulitis Patient Disposition: Home, Self-Care Instructions: Cellulitis (DC) Additional Instructions: Your blood work is reassuring. We obtain her records from [facility] Please continue to take prescribed antibiotics which you have until completion even if her symptoms start to get better Take Tylenol Motrin for pain/swelling If symptoms persist or worsen return to the ED Prescriptions: New ibuprofen 800 mg tablet 800 mg PO Q8H PRN (Reason: pain) Qty: 14 0RF acetaminophen [Tylenol Extra Strength] 500 mg tablet 500 mg PO Q6H PRN (Reason: fever or pain) Qty: 14 0RF No Action albuterol sulfate 90 mcg/actuation HFA aerosol inhaler 2 puff inhalation Q4-6H PRN (Reason: shortness of breath or wheezing) Qty: 8.5 0RF azithromycin [Zithromax Z-Santos] 250 mg tablet See Rx Instructions .ROUTE .COMPLEX Qty: 6 0RF Rx Instructions: take 500 mg today (day 1), then 250 mg for 4 days (days 2-5) prednisone 20 mg tablet 60 mg PO DAILY 5 Days Qty: 15 0RF prednisone 20 mg tablet 60 mg PO DAILY 4 Days Qty: 12 0RF albuterol sulfate [Ventolin HFA] 90 mcg/actuation HFA aerosol inhaler 1 inh inhalation QID PRN (Reason: shortness of breath or wheezing) Qty: 8.5 1RF azithromycin 250 mg tablet 250 mg PO DAILY 4 Days Qty: 4 0RF Rx Instructions: start on day 2 of therapy acetaminophen [Tylenol] 325 mg capsule 325 mg PO Q4H PRN (Reason: pain) Qty: 30 0RF prednisone 20 mg tablet 40 mg PO DAILY 5 Days Qty: 10 0RF albuterol sulfate 90 mcg/actuation aerosol powdr breath activated 2 inh inhalation Q4-6H PRN (Reason: shortness of breath or wheezing) Qty: 1 0RF prednisone 20 mg tablet 40 mg PO DAILY Qty: 10 0RF albuterol sulfate 90 mcg/actuation HFA aerosol inhaler 2 puff inhalation Q6H PRN (Reason: shortness of breath or wheezing) Qty: 8.5 0RF prednisone 50 mg tablet 50 mg PO DAILY 5 Days Qty: 5 0RF albuterol sulfate 90 mcg/actuation HFA aerosol inhaler 2 puff inhalation Q20M PRN (Reason: shortness of breath or wheezing) Qty: 8.5 0RF tamsulosin 0.4 mg capsule 0.4 mg PO DAILY 7 Days Qty: 7 0RF doxycycline hyclate 100 mg tablet 100 mg PO BID Qty: 20 0RF Referrals: Physician,Unknown J [Primary Care Provider] - Print Language: Cameroonian
[2024-05-17] MEDS: Ketorolac Tromethamine 30 MG/ML VIAL IM (07:15)
[2024-05-17 07:19] VITALS: BP 145/80; PULSE 56; RESP 14; O2SAT 100
--- NOTE | 2024-05-17 07:25 | PC.NURSE ---
this RN resumed care of pt at 0645. a&ox4. vss and up to date. pt presents to the ED after recently being discharged w/o PO antibiotics for infection in BLE. redness/scabs noted throughout LE bilaterally. warm to the touch. pt rating pain an 8/10. pt medicated per provider order. effectiveness pending. pt requesting coffee/breakfast. coffee provided. tech called for pt to receive breakfast tray. pt seems to be resting in no apparent distress. no sob/wob noted. respirations even/unlabored. plan of care ongoing. call [facility] placed within reach.
[2024-05-17 07:36] LABS: Troponin-I High Sensitivity < 2.7 ng/L (<3.5-35.0)
[2024-05-17 07:37] LABS: B Type Natriuretic Peptide 67 pg/mL (<100)
[2024-05-17] MEDS: cephALEXin 500 MG CAPSULE PO (07:41)
[2024-05-17] MEDS: Doxycycline Monohydrate 100 MG CAPSULE PO (07:41)
--- NOTE | 2024-05-17 07:43 | PC.NURSE ---
abx administered per provider order.
[2024-05-17 08:18] VITALS: BP 145/80; PULSE 56; RESP 14; TEMP 37.2; O2SAT 100
== END 2024-05-17 08:19 | disposition home or self-care (01) ==
PROVIDERS: Physician Assistant; Emergency Provider Emergency Medicine
DX: L03.116 Cellulitis of left lower limb (principal); L03.115 Cellulitis of right lower limb; M79.605 Pain in left leg; M79.604 Pain in right leg; R07.9 Chest pain, unspecified; F19.10 Other psychoactive substance abuse, uncomplicated; J45.909 Unspecified asthma, uncomplicated; Z79.899 Other long term (current) drug therapy
CPT/HCPCS: 36415; 80053; 83880; 84484; 85025; 96372; 99284; J1885

== ENCOUNTER 2024-07-23 00:38 | Emergency (ER) | payer OTHER, SELFPAY ==
--- NOTE | ~2024-07-23 | XR_ITS ---
EXAMINATION: XR CHEST CLINICAL INFORMATION: Asthma flareup. COMPARISON: Chest radiograph 04/27/2024 chest radiograph 02/01/2019 TECHNIQUE: Frontal view of the chest was obtained. FINDINGS: Normal appearance of the cardiomediastinal structures. No effusions or pneumothoraces. Normal pattern of pulmonary vasculature. No focal pulmonary consolidation. Several well-circumscribed rounded punctate densities project over the right lung base and are most suspicious for chronic calcified granulomas. These findings are unchanged compared with 02/01/2019. XR/XR chest 1V IMPRESSION: No acute cardiopulmonary abnormalities. Electronically signed by: Marty Oliva MD 07/23/2024 02:33 AM EDT
[2024-07-23 01:00] VITALS: BP 127/62; PULSE 93; RESP 18; TEMP 36.8; O2SAT 98; BMI 22.9
--- NOTE | 2024-07-23 02:18 | ED_ITS ---
HPI - URI/Sore Throat General Chief Complaint: Upper Respiratory Symptoms Stated Complaint: Asthma Time Seen by Provider: 07/23/24 02:10 Source: patient Mode of arrival: ambulatory Limitations: no limitations History of Present Illness ED Provider: Dr. Cathryn Aguilar HPI Narrative: Patient comes to the emergency room complaining of asthma exacerbation. 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 Patient used his inhaler prior to arrival. On arrival, patient has no symptoms. Related Data Previous Rx's ?Medication ?Instructions ?Recorded albuterol sulfate 90 mcg/actuation 2 puff inhalation Q4-6H PRN 05/30/21 aerosol inhaler shortness of breath or wheezing #8.5 grams azithromycin 250 mg tablet See Rx Instructions PO .COMPLEX #6 05/30/21 (Zithromax Z-Santos) tabs prednisone 20 mg tablet 60 mg (3 x 20 mg) PO DAILY 5 days 05/30/21 #15 tabs albuterol sulfate 90 mcg/actuation 1 inh inhalation QID PRN shortness 10/11/21 aerosol inhaler (Ventolin HFA) of breath or wheezing #8.5 grams azithromycin 250 mg tablet 250 mg PO DAILY 4 days #4 tabs 10/11/21 prednisone 20 mg tablet 60 mg (3 x 20 mg) PO DAILY 4 days 10/11/21 #12 tabs acetaminophen 325 mg capsule 325 mg PO Q4H PRN pain #30 caps 01/11/24 (Tylenol) albuterol sulfate 90 mcg/actuation 2 inh inhalation Q4-6H PRN 01/11/24 breath activated powder inhaler shortness of breath or wheezing #1 ea prednisone 20 mg tablet 40 mg (2 x 20 mg) PO DAILY 5 days 01/11/24 #10 tabs albuterol sulfate 90 mcg/actuation 2 puff inhalation Q20M PRN 02/11/24 aerosol inhaler shortness of breath or wheezing #8.5 grams prednisone 50 mg tablet 50 mg PO DAILY 5 days #5 tabs 02/11/24 tamsulosin 0.4 mg capsule 0.4 mg PO DAILY 7 days #7 caps 03/11/24 albuterol sulfate 90 mcg/actuation 2 puff inhalation Q6H PRN 04/27/24 aerosol inhaler shortness of breath or wheezing #8.5 grams prednisone 20 mg tablet 40 mg (2 x 20 mg) PO DAILY #10 tabs 04/27/24 doxycycline hyclate 100 mg tablet 100 mg PO BID #20 tabs 05/14/24 acetaminophen 500 mg tablet 500 mg PO Q6H PRN fever or pain 05/17/24 (Tylenol Extra Strength) #14 tabs ibuprofen 800 mg tablet 800 mg PO Q8H PRN pain #14 tabs 05/17/24 albuterol sulfate 90 mcg/actuation 2 puff inhalation Q4-6H PRN 07/23/24 aerosol inhaler shortness of breath or wheezing #8.5 grams Allergies Allergy/AdvReac Type Severity Reaction Status Date / Time No Known Allergies Allergy Verified 07/23/24 01:03 [No Known Allergies*] Review of Systems Review of Systems: Constitutional : No Weight loss, No Fever, No Chills, No Night Sweats, No Fatigue, No Malaise ENT/Mouth : No Hearing loss, No Ear Pain, No Nasal Congestion, No Sinus Pain, No Hoarseness, No sore throat, No Rhinorrhea, No Swallowing Difficulty Eyes: No Eye Pain, No Swelling, No Redness, No Foreign Body, No Discharge, No Vision Changes Cardiovascular : No Chest Pain, No SOB, No Dyspnea on Exertion, No Orthopnea, No Edema, No Palpitations Respiratory : No Cough, No Sputum, wheezing earlier today which resolved with an albuterol treatment., No Smoke Exposure, No Dyspnea Gastrointestinal : No Nausea, No Vomiting, No Diarrhea, No Constipation, No abdominal Pain, No Hematochezia, No Melena Genitourinary : no irregular bleeding, No Dysuria, No Urinary Frequency, No Hematuria, No Urinary Incontinence, No Urgency, No Flank Pain, No Urinary Flow Changes, No Hesitancy Musculoskeletal : No joint pain, No Myalgias, No Joint Swelling Skin : No Skin Lesions, No rash Neuro : No Weakness, No Numbness, No Paresthesias, No Loss of Consciousness, No Dizziness, No Headache Psych : No Anxiety/Panic, No Depression, No SI/HI/AH/VH, No Social Issues, Heme/Lymph: No Bruising, No Bleeding,No Lymphadenopathy Endocrine : No Polyuria, No Polydipsia, No Temperature Intolerance PMFSH Past Medical History Medical History Asthma Social History Social History Alcohol intake: unknown Patient Tobacco Use Status: Current everyday Tobacco user Substance Use Type: Heroin Advance Directives: No Advance Directives Information Provided: Yes Do you have a plan to hurt others: No Plan Physical Exam Vital Signs: Vital Signs: Last Vital Signs Temp 98.2 F 07/23/24 01:00 Pulse 93 07/23/24 01:00 Resp 18 07/23/24 01:00 BP 127/62 07/23/24 01:00 Pulse Ox 98 07/23/24 01:00 O2 Del Method Room Air 07/23/24 01:00 BMI result Body Mass Index 22.9 Const: Other: Appearance: Alert. Oriented X3. No acute distress. Eyes: Pupils equal, round and reactive to light. ENT: Pharynx normal. Neck: Normal inspection. Neck supple. No lymph nodes noted. No crepitus CVS: Normal heart rate and rhythm. Pulses normal. Normal S1 and S2 Respiratory: No respiratory distress. Breath sounds normal. No Wheezing. No rales Abdomen: Soft and nontender. No rigidity. No distention. Skin: Skin warm and dry. Normal skin color. Normal skin turgor. Extremities: No lower extremity edema. No Lacerations. No Rash Neuro: Oriented X 3. No motor deficit. No sensory deficit. Moving all extremities. No slurred speech. CN 2 through 12 grossly intact Psych: calm, cooperative, normal affect Medical Decision Making Medical Decision Making MDM Narrative: On physical exam, patient had no wheezing at all, oxygen saturation 98% on room air including ambulation, talking in full sentences -at this time, patient does not need any further medications or breathing treatments. -patient states that he ran out of his albuterol and needs a refill Discharge Plan Discharge Clinical Impression: Asthma, Medication refill Patient Disposition: Home, Self-Care Instructions: Asthma (ED), Medicine Refill (ED) Additional Instructions: Please follow-up with your primary care physician tomorrow. If you have any worsening or new symptoms, please return to the emergency room or call 911 Prescriptions: New albuterol sulfate 90 mcg/actuation HFA aerosol inhaler 2 puff inhalation Q4-6H PRN (Reason: shortness of breath or wheezing) Qty: 8.5 0RF No Action albuterol sulfate 90 mcg/actuation HFA aerosol inhaler 2 puff inhalation Q4-6H PRN (Reason: shortness of breath or wheezing) Qty: 8.5 0RF azithromycin [Zithromax Z-Santos] 250 mg tablet See Rx Instructions .ROUTE .COMPLEX Qty: 6 0RF Rx Instructions: take 500 mg today (day 1), then 250 mg for 4 days (days 2-5) prednisone 20 mg tablet 60 mg PO DAILY 5 Days Qty: 15 0RF prednisone 20 mg tablet 60 mg PO DAILY 4 Days Qty: 12 0RF albuterol sulfate [Ventolin HFA] 90 mcg/actuation HFA aerosol inhaler 1 inh inhalation QID PRN (Reason: shortness of breath or wheezing) Qty: 8.5 1RF azithromycin 250 mg tablet 250 mg PO DAILY 4 Days Qty: 4 0RF Rx Instructions: start on day 2 of therapy acetaminophen [Tylenol] 325 mg capsule 325 mg PO Q4H PRN (Reason: pain) Qty: 30 0RF prednisone 20 mg tablet 40 mg PO DAILY 5 Days Qty: 10 0RF albuterol sulfate 90 mcg/actuation aerosol powdr breath activated 2 inh inhalation Q4-6H PRN (Reason: shortness of breath or wheezing) Qty: 1 0RF prednisone 20 mg tablet 40 mg PO DAILY Qty: 10 0RF albuterol sulfate 90 mcg/actuation HFA aerosol inhaler 2 puff inhalation Q6H PRN (Reason: shortness of breath or wheezing) Qty: 8.5 0RF prednisone 50 mg tablet 50 mg PO DAILY 5 Days Qty: 5 0RF albuterol sulfate 90 mcg/actuation HFA aerosol inhaler 2 puff inhalation Q20M PRN (Reason: shortness of breath or wheezing) Qty: 8.5 0RF tamsulosin 0.4 mg capsule 0.4 mg PO DAILY 7 Days Qty: 7 0RF doxycycline hyclate 100 mg tablet 100 mg PO BID Qty: 20 0RF ibuprofen 800 mg tablet 800 mg PO Q8H PRN (Reason: pain) Qty: 14 0RF acetaminophen [Tylenol Extra Strength] 500 mg tablet 500 mg PO Q6H PRN (Reason: fever or pain) Qty: 14 0RF Print Language: Persian
[2024-07-23 02:23] VITALS: BP 98/59; PULSE 85; RESP 16; TEMP 36.6; O2SAT 96
[2024-07-23 02:54] VITALS: BP 98/59; PULSE 85; RESP 16; TEMP 36.6; O2SAT 96
== END 2024-07-23 02:54 | disposition home or self-care (01) ==
PROVIDERS: Emergency Provider Emergency Medicine
DX: J45.909 Unspecified asthma, uncomplicated (principal); Z79.899 Other long term (current) drug therapy
CPT/HCPCS: 71045; 99283

== ENCOUNTER 2024-08-14 00:30 | Emergency (ER) | payer OTHER, SELFPAY ==
--- NOTE | ~2024-08-14 | XR_ITS ---
EXAMINATION: XR CHEST CLINICAL INFORMATION: Shortness of breath. COMPARISON: July 23, 2024 TECHNIQUE: 2 views of the chest were obtained. FINDINGS: No significant abnormality is noted involving the heart, lungs, mediastinum, bony thorax or soft tissues. XR/XR chest 2V IMPRESSION: Unremarkable examination. Electronically signed by: Jama Miguel MD 08/14/2024 04:40 AM EDT
[2024-08-14 00:50] VITALS: BP 113/68; PULSE 66; RESP 16; TEMP 36.6; O2SAT 97; BMI 25.0
--- NOTE | 2024-08-14 00:54 | ECG_ITS ---
Test Reason : DYSPNEA Blood Pressure : / mmHG Vent. Rate : 057 BPM Atrial Rate : 057 BPM P-R Int : 148 ms QRS Dur : 092 ms QT Int : 454 ms P-R-T Axes : 079 072 065 degrees QTc Int : 441 ms Sinus bradycardia Otherwise normal ECG When compared to the previous EKG of No other significant changes seen Referred By: Generic ED Physician Electronically Signed By:Med Torres
[2024-08-14 01:24] LABS: MANUAL DIFF FLAG NO
[2024-08-14 01:28] LABS: Basophils Percent Auto 0.2 % (0-2); Eosinophils Absolute Auto 0.1 X10*3/uL (0.0-0.4); Eosinophils Percent Auto 2.8 % (0-4); Hematocrit 33.6 % (42.0-52.0); Hemoglobin 11.2 g/dl (14.0-18.0); Lymphocytes Absolute Auto 1.6 X10*3/uL (1.2-4.9); Lymphocytes Percent Auto 34.1 % (20-40); Mean Corpuscular HGB Conc 33.3 g/dl (31.0-36.0); Mean Corpuscular Hemoglobin 30.6 pg (27.0-33.0); Mean Corpuscular Volume 91.8 fL (80.0-98.0); Mean Platelet Volume 9.1 fL (9.4-12.4); Monocytes Absolute Auto 0.2 X10*3/uL (0.1-1.2); Monocytes Percent Auto 5.3 % (2-11); Neutrophils Absolute Auto 2.6 x10*3/uL (2.0-8.3); Neutrophils Percent Auto 57.6 % (45-73); Platelet Count 206 X10*3/uL (160-400); Red Blood Count 3.66 X10*6/uL (4.60-5.80); Red Cell Distribution Width 13.6 % (11.0-16.0); White Blood Count 4.6 X10*3/uL (4.8-10.8)
[2024-08-14 01:45] LABS: Alanine Aminotransferase 23 U/L (0-40); Albumin Level 3.9 g/dL (3.5-5.0); Alkaline Phosphatase 78 U/L (39-117); Anion Gap 13 (12-20); Aspartate Amino Transferase 39 U/L (5-37); Bilirubin Total 0.3 mg/dL (0.0-1.0); Blood Urea Nitrogen 16 mg/dL (9-16); Calcium 8.9 mg/dL (8.4-10.2); Carbon Dioxide 27 mmol/L (22-29); Chloride 108 mmol/L (96-108); Creatinine Clr Calc Pharmacy 81.4; Estimated Glomerular Filt Rate > 60; Glucose Random 87 mg/dL (60-115); Potassium 3.7 mmol/L (3.3-5.1); Sodium 144 mmol/L (135-145); Total Protein 6.6 g/dL (6.5-8.0)
[2024-08-14 01:48] LABS: Troponin-I High Sensitivity < 2.7 ng/L (<3.5-35.0)
[2024-08-14 02:09] LABS: COVID-19 Test Negative (Negative); IDNOW Serial# 152EDE1D
[2024-08-14 02:20] LABS: IDNOW Serial# 08D9AD1C; Influenza A Negative (Negative); Influenza B2 Negative (Negative)
[2024-08-14 03:33] VITALS: BP 107/59; PULSE 57; RESP 16; TEMP 36.9; O2SAT 98
--- NOTE | 2024-08-14 03:53 | ED.SOB ---
HPI - SOB/Dyspnea General Chief Complaint: Dyspnea Stated Complaint: asthma Time Seen by Provider: 08/14/24 02:32 Source: patient Mode of arrival: ambulatory Limitations: no limitations History of Present Illness ED Provider: olvin RAUSCH Narrative: Patient's history of asthma been cough for last 3 days no fever no chills lab workup done prior to my evaluation was normal chest x-ray negative COVID and flu negative patient is saturating 98% on room air Related Data Previous Rx's ?Medication ?Instructions ?Recorded albuterol sulfate 90 mcg/actuation 2 puff inhalation Q4-6H PRN 05/30/21 aerosol inhaler shortness of breath or wheezing #8.5 grams azithromycin 250 mg tablet See Rx Instructions PO .COMPLEX #6 05/30/21 (Zithromax Z-Santos) tabs prednisone 20 mg tablet 60 mg (3 x 20 mg) PO DAILY 5 days 05/30/21 #15 tabs albuterol sulfate 90 mcg/actuation 1 inh inhalation QID PRN shortness 10/11/21 aerosol inhaler (Ventolin HFA) of breath or wheezing #8.5 grams azithromycin 250 mg tablet 250 mg PO DAILY 4 days #4 tabs 10/11/21 prednisone 20 mg tablet 60 mg (3 x 20 mg) PO DAILY 4 days 10/11/21 #12 tabs acetaminophen 325 mg capsule 325 mg PO Q4H PRN pain #30 caps 01/11/24 (Tylenol) albuterol sulfate 90 mcg/actuation 2 inh inhalation Q4-6H PRN 01/11/24 breath activated powder inhaler shortness of breath or wheezing #1 ea prednisone 20 mg tablet 40 mg (2 x 20 mg) PO DAILY 5 days 01/11/24 #10 tabs albuterol sulfate 90 mcg/actuation 2 puff inhalation Q20M PRN 02/11/24 aerosol inhaler shortness of breath or wheezing #8.5 grams prednisone 50 mg tablet 50 mg PO DAILY 5 days #5 tabs 02/11/24 tamsulosin 0.4 mg capsule 0.4 mg PO DAILY 7 days #7 caps 03/11/24 albuterol sulfate 90 mcg/actuation 2 puff inhalation Q6H PRN 04/27/24 aerosol inhaler shortness of breath or wheezing #8.5 grams prednisone 20 mg tablet 40 mg (2 x 20 mg) PO DAILY #10 tabs 04/27/24 doxycycline hyclate 100 mg tablet 100 mg PO BID #20 tabs 05/14/24 acetaminophen 500 mg tablet 500 mg PO Q6H PRN fever or pain 05/17/24 (Tylenol Extra Strength) #14 tabs ibuprofen 800 mg tablet 800 mg PO Q8H PRN pain #14 tabs 05/17/24 albuterol sulfate 90 mcg/actuation 2 puff inhalation Q4-6H PRN 07/23/24 aerosol inhaler shortness of breath or wheezing #8.5 grams albuterol sulfate 90 mcg/actuation 2 puff inhalation Q6H PRN 08/14/24 aerosol inhaler shortness of breath or wheezing #8.5 grams prednisone 20 mg tablet 40 mg (2 x 20 mg) PO DAILY #10 tabs 08/14/24 Allergies Allergy/AdvReac Type Severity Reaction Status Date / Time No Known Allergies Allergy Verified 08/14/24 00:53 [No Known Allergies*] Review of Systems Review of Systems: Yes all other systems are reviewed and are negative [facility] Past Medical History Medical History Asthma Social History Social History Alcohol intake: unknown Patient Tobacco Use Status: Current everyday Tobacco user Substance Use Type: Heroin Advance Directives: No Advance Directives Information Provided: Yes Do you have a plan to hurt others: No Plan Physical Exam Vital Signs: Vital Signs: Last Vital Signs Temp 98.4 F 08/14/24 03:33 Pulse 57 08/14/24 03:33 Resp 16 08/14/24 03:33 BP 107/59 L 08/14/24 03:33 Pulse Ox 98 08/14/24 03:33 O2 Del Method Room Air 08/14/24 03:33 BMI result Body Mass Index 25.0 Appearance: Alert. Oriented X3. No acute distress. ENT: Pharynx normal. Oral Mucosa moist Neck: Normal inspection. Neck supple. CVS: Normal heart rate and rhythm. Pulses normal. Respiratory: No respiratory distress. Equal air entry bilateral, bilateral wheezing with prolonged expiration Abdomen: Soft and nontender. Bowel sounds are present, Skin: Skin warm and dry. Normal skin color. Normal skin turgor. Extremities: No lower extremity edema. No calf tenderness Neuro: Oriented X 3. No motor deficit. Medical Decision Making Medical Decision Making [facility] Narrative: Patient is saturating 98% at room air with history of asthma will prescribe Lab Data [facility] Lab Attestation statement: I reviewed the patient's lab results. 08/14/24 01:13 08/14/24 01:13 Labs: Lab Results 08/14/24 08/14/24 Range/Units 01:13 01:50 WBC 4.6 L (4.8-10.8) X10*3/uL RBC 3.66 L (4.60-5.80) X10*6/uL Hgb 11.2 L (14.0-18.0) g/dl Hct 33.6 L (42.0-52.0) % MCV 91.8 (80.0-98.0) fL MCH 30.6 (27.0-33.0) pg MCHC 33.3 (31.0-36.0) g/dl RDW 13.6 (11.0-16.0) % Plt Count 206 (160-400) X10*3/uL MPV 9.1 L (9.4-12.4) fL Immature Gran % (Auto) 0.0 (0.0-0.4) % Neut % (Auto) 57.6 (45-73) % Lymph % (Auto) 34.1 (20-40) % [place] % (Auto) 5.3 (2-11) % Eos % (Auto) 2.8 (0-4) % Baso % (Auto) 0.2 (0-2) % Lymph # (Auto) 1.6 (1.2-4.9) X10*3/uL [place] # (Auto) 0.2 (0.1-1.2) X10*3/uL Eos # (Auto) 0.1 (0.0-0.4) X10*3/uL Baso # (Auto) 0.0 (0.0-0.2) X10*3/uL Abs Immat Gran (auto) 0.00 (0.00-0.03) X10*3/uL Absolute Neuts (auto) 2.6 (2.0-8.3) x10*3/uL Absolute Nucleated RBC 0.000 (0.0-0.012) X10*3/uL Nucleated RBC % (auto) 0.0 (0.0-0.2) /100WBC Sodium 144 (135-145) mmol/L Potassium 3.7 (3.3-5.1) mmol/L Chloride 108 (96-108) mmol/L Carbon Dioxide 27 (22-29) mmol/L Anion Gap 13 (12-20) BUN 16 (9-16) mg/dL Creatinine 0.86 (0.5-1.4) mg/dL Estim Creat Clear Calc 81.4 Estimated GFR > 60 Random Glucose 87 (60-115) mg/dL Calcium 8.9 (8.4-10.2) mg/dL Total Bilirubin 0.3 (0.0-1.0) mg/dL AST 39 H (5-37) U/L ALT 23 (0-40) U/L Alkaline Phosphatase 78 (39-117) U/L Troponin I High Sens < 2.7 (<3.5-35.0) ng/L Total Protein 6.6 (6.5-8.0) g/dL Albumin 3.9 (3.5-5.0) g/dL COVID-19 ([facility]) Negative (Negative) COVID-19 Clin Com See Note Influenza Type A ([place]) Cancelled Negative Influenza Type B ([place]) Cancelled Negative Influenza A & B Note Cancelled See Note Independent Interpretation I performed an independent interpretation of an: Plain X-Ray Radiology Impression Discussion of test interpretation with radiology: I have reviewed the radiologist's reading. Discharge Plan Discharge Clinical Impression: Asthma with exacerbation Patient Disposition: Home, Self-Care Instructions: Asthma (ED) Additional Instructions: Use your inhaler and prednisone as prescribed Prescriptions: New prednisone 20 mg tablet 40 mg PO DAILY Qty: 10 0RF albuterol sulfate 90 mcg/actuation HFA aerosol inhaler 2 puff inhalation Q6H PRN (Reason: shortness of breath or wheezing) Qty: 8.5 0RF No Action albuterol sulfate 90 mcg/actuation HFA aerosol inhaler 2 puff inhalation Q4-6H PRN (Reason: shortness of breath or wheezing) Qty: 8.5 0RF azithromycin [Zithromax Z-Santos] 250 mg tablet See Rx Instructions .ROUTE .COMPLEX Qty: 6 0RF Rx Instructions: take 500 mg today (day 1), then 250 mg for 4 days (days 2-5) prednisone 20 mg tablet 60 mg PO DAILY 5 Days Qty: 15 0RF prednisone 20 mg tablet 60 mg PO DAILY 4 Days Qty: 12 0RF albuterol sulfate [Ventolin HFA] 90 mcg/actuation HFA aerosol inhaler 1 inh inhalation QID PRN (Reason: shortness of breath or wheezing) Qty: 8.5 1RF azithromycin 250 mg tablet 250 mg PO DAILY 4 Days Qty: 4 0RF Rx Instructions: start on day 2 of therapy acetaminophen [Tylenol] 325 mg capsule 325 mg PO Q4H PRN (Reason: pain) Qty: 30 0RF prednisone 20 mg tablet 40 mg PO DAILY 5 Days Qty: 10 0RF albuterol sulfate 90 mcg/actuation aerosol powdr breath activated 2 inh inhalation Q4-6H PRN (Reason: shortness of breath or wheezing) Qty: 1 0RF prednisone 20 mg tablet 40 mg PO DAILY Qty: 10 0RF albuterol sulfate 90 mcg/actuation HFA aerosol inhaler 2 puff inhalation Q6H PRN (Reason: shortness of breath or wheezing) Qty: 8.5 0RF albuterol sulfate 90 mcg/actuation HFA aerosol inhaler 2 puff inhalation Q4-6H PRN (Reason: shortness of breath or wheezing) Qty: 8.5 0RF prednisone 50 mg tablet 50 mg PO DAILY 5 Days Qty: 5 0RF albuterol sulfate 90 mcg/actuation HFA aerosol inhaler 2 puff inhalation Q20M PRN (Reason: shortness of breath or wheezing) Qty: 8.5 0RF tamsulosin 0.4 mg capsule 0.4 mg PO DAILY 7 Days Qty: 7 0RF doxycycline hyclate 100 mg tablet 100 mg PO BID Qty: 20 0RF ibuprofen 800 mg tablet 800 mg PO Q8H PRN (Reason: pain) Qty: 14 0RF acetaminophen [Tylenol Extra Strength] 500 mg tablet 500 mg PO Q6H PRN (Reason: fever or pain) Qty: 14 0RF Print Language: [place] Islander
[2024-08-14 04:21] VITALS: PULSE 60; RESP 18; O2SAT 100
[2024-08-14] MEDS: Albuterol Sulfate 90 MCG 8 GM INHALER 2 PUFF INHALE (04:21)
[2024-08-14] MEDS: predniSONE 20 MG TABLET 40 MG PO (04:26)
[2024-08-14 04:30] VITALS: BP 118/60; PULSE 56; RESP 16; TEMP 36.7; O2SAT 98
[2024-08-14 05:53] VITALS: BP 118/60; PULSE 56; RESP 16; TEMP 36.7; O2SAT 98
== END 2024-08-14 06:49 | disposition home or self-care (01) ==
PROVIDERS: Emergency Provider Internal Medicine
DX: J45.901 Unspecified asthma with (acute) exacerbation (principal); Z03.818 Encounter for observation for suspected exposure to other biological agents ruled out
CPT/HCPCS: 71046; 80053; 84484; 85025; 87502; 87635; 93005; 94640; 99284

== ENCOUNTER → 2024-08-14 00:54 | Outpatient (BNV) | payer OTHER, SELFPAY | PROVIDERS: Emergency Provider Internal Medicine; Visit Provider Internal Medicine Cardiovascular Disease | DX: R00.1 Bradycardia, unspecified (principal); R06.09 Other forms of dyspnea | CPT/HCPCS: 93010 ==

== ENCOUNTER 2024-11-21 23:35 | Inpatient (IN) | payer OTHER, SELFPAY ==
[2024-11-21 23:56] VITALS: BP 117/68; BP 138/90; PULSE 86; RESP 20; TEMP 37.2; O2SAT 96; O2SAT 99; BMI 21.6
--- NOTE | 2024-11-22 | ECG_ITS ---
Test Reason : SUBSTANCE USE Blood Pressure : */* mmHG Vent. Rate : 73 BPM Atrial Rate : 73 BPM P-R Int : 146 ms QRS Dur : 94 ms QT Int : 402 ms P-R-T Axes : 78 76 80 degrees QTcB Int : 442 ms Normal sinus rhythm Nonspecific T wave abnormality Borderline ECG When compared with ECG of 14-Aug-2024 00:57, No significant change was found Referred By: Generic ED Physician Electronically Signed By: RAJWINDER GALDAMEZ
--- NOTE | 2024-11-22 00:08 | MHC.EDTECH ---
Patient BIBA,vitals taken,security at bedside to assist with changeover,pt placed in crisis attire, belongings list completed,copy placed in chart, [facility] Patient ambulated to the bathroom with a steady gait,urine sample collected and sent to lab, sitter at bedside for safety
--- NOTE | 2024-11-22 00:09 | PC.NURSE ---
Pt BIBA from outside of [facility] reporting thoughts of harming self with a plan to cut. Pt homeless, reports using crack cocaine today, on methadone- last dose 120mg dosed on [address] in [place] per pt report. Pt A&Ox3 respirations even unlabored, VSS. Denies pain. Reports being hungry. Calm and cooperative with care. Changed into behavioral health attire, 3 bags of belongings stored on shelf 1 in [place]. Pt observer at bedside for safety, 1:1 initiated and maintained. Awaiting primary provider mitul, aware of plan of care.
[2024-11-22 00:25] LABS: MANUAL DIFF FLAG NO
[2024-11-22 00:27] LABS: Basophils Percent Auto 0.1 % (0-2); Eosinophils Percent Auto 0.1 % (0-4); Hematocrit 37.8 % (42.0-52.0); Hemoglobin 12.8 g/dl (14.0-18.0); Imm Gran Abs Auto 0.05 X10*3/uL (0.00-0.03); Imm Gran Pct Auto 0.4 % (0.0-0.4); Lymphocytes Absolute Auto 0.6 X10*3/uL (1.2-4.9); Lymphocytes Percent Auto 4.1 % (20-40); Mean Corpuscular HGB Conc 33.9 g/dl (31.0-36.0); Mean Corpuscular Hemoglobin 30.3 pg (27.0-33.0); Mean Corpuscular Volume 89.4 fL (80.0-98.0); Mean Platelet Volume 9.1 fL (9.4-12.4); Monocytes Absolute Auto 0.8 X10*3/uL (0.1-1.2); Monocytes Percent Auto 6.2 % (2-11); Neutrophils Absolute Auto 11.9 x10*3/uL (2.0-8.3); Neutrophils Percent Auto 89.1 % (45-73); Platelet Count 177 X10*3/uL (160-400); Red Blood Count 4.23 X10*6/uL (4.60-5.80); Red Cell Distribution Width 12.2 % (11.0-16.0); White Blood Count 13.3 X10*3/uL (4.8-10.8)
--- NOTE | 2024-11-22 00:29 | MHC.EDTECH ---
EKG taken per order and signed by provider,labs and covid obtained and sent to lab.
[2024-11-22 00:39] LABS: Amphetamine Screen Urine Not Detected (Not Detect); Barbiturates, Urine Not Detected (Not Detect); Benzodiazepines Screen Urine Not Detected (Not Detect); Buprenorphine Scr Not Detected (Not Detect); Cannabinoid Screen Urine POSITIVE (Not Detect); Cocaine Screen Urine POSITIVE (Not Detect); Fentanyl, urine Not Detected (Not Detect); Methadone Screen, Urine Positive (Not Detect); Opiate Screen Urine Not Detected (Not Detect); Oxycodone Screen Urine Not Detected (Not Detect); Phencyclidine Screen Urine Not Detected (Not Detect)
[2024-11-22 00:43] LABS: COVID-19 Test Negative (Negative); IDNOW Serial# 55D5AD1C
[2024-11-22 00:46] LABS: Acetaminophen LAB < 3 mcg/mL (<30); Alanine Aminotransferase 15 U/L (0-40); Albumin Level 4.1 g/dL (3.5-5.0); Alkaline Phosphatase 65 U/L (39-117); Anion Gap 14 (12-20); Aspartate Amino Transferase 25 U/L (5-37); Bilirubin Total 0.4 mg/dL (0.0-1.0); Blood Urea Nitrogen 25 mg/dL (9-16); Calcium 9.5 mg/dL (8.4-10.2); Carbon Dioxide 24 mmol/L (22-29); Chloride 106 mmol/L (96-108); Estimated Glomerular Filt Rate > 60; Ethanol < 10 mg/dL; Glucose Random 112 mg/dL (60-115); Potassium 3.8 mmol/L (3.3-5.1); Salicylate < 5.0 mg/dL (15-30); Sodium 140 mmol/L (135-145); Total Protein 7.1 g/dL (6.5-8.0)
--- NOTE | 2024-11-22 01:04 | ED.PSYCH ---
HPI - Psych General Chief Complaint: Psychiatric Symptoms Stated Complaint: Self-harm, no SI , no HI Time Seen by Provider: 11/22/24 00:33 Source: patient Mode of arrival: EMS Limitations: no limitations History of Present Illness ED Provider: HPI Narrative: Patient's history of cocaine abuse on methadone with increased depression comes here for suicidal feeling with plan to cut his wrist denied any triggering factor , says that is ongoing depression and unhappiness patient is homeless for more than 1 year Related Data Previous Rx's ?Medication ?Instructions ?Recorded albuterol sulfate 90 mcg/actuation 2 puff inhalation Q4-6H PRN 05/30/21 aerosol inhaler shortness of breath or wheezing #8.5 grams Allergies Allergy/AdvReac Type Severity Reaction Status Date / Time No Known Allergies Allergy Verified 11/22/24 00:01 [No Known Allergies*] Review of Systems Review of Systems: Yes all other systems are reviewed and are negative PMFSH Past Medical History Medical History Asthma Social History Social History Alcohol intake: unknown Patient Tobacco Use Status: Current everyday Tobacco user Smoked in Last 30 Days: Yes Use of substances other than those prescribed or required for medical reasons: Yes Substance Use Type: Crack/Cocaine and Heroin Advance Directives: No Advance Directives Information Provided: Yes Do you have a plan to hurt others: No Plan Physical Exam Vital Signs: Vital Signs: Last Vital Signs Temp 98.3 F 11/22/24 03:23 Pulse 62 11/22/24 03:23 Resp 14 11/22/24 03:23 BP 113/64 11/22/24 03:23 Pulse Ox 96 11/22/24 03:23 O2 Del Method Room Air 11/22/24 03:23 BMI result Body Mass Index 21.6 Appearance: Alert. Oriented X3. No acute distress. Eyes: PERRLA, No Nystagmus ENT: Pharynx normal. Oral Mucosa moist Neck: Normal inspection. Neck supple. CVS: Normal heart rate and rhythm. Pulses normal. Respiratory: No respiratory distress. Equal air entry bilateral, no wheezing/rales/rhonchi Abdomen: Soft and nontender. Bowel sounds are present, no mass palpable, no CVA tenderness Skin: Skin warm and dry. Normal skin color. Normal skin turgor. Extremities: No lower extremity edema. No calf tenderness psych: Feel depressed SI with a plan of cutting his wrists no hallucination or delusion Neuro: Oriented X 3. No motor deficit. No sensory deficit.No cerebellar signs , cranial nerves II-XII intact Medical Decision Making Medical Decision Making [facility] Narrative: Patient's depression homeless with suicidal ideation with history of cocaine use will get care team evaluation Lab Data [facility] Lab Attestation statement: I reviewed the patient's lab results. 11/22/24 00:20 11/22/24 00:19 Labs: Lab Results 11/22/24 11/22/24 Range/Units 00:19 00:20 WBC 13.3 H (4.8-10.8) X10*3/uL RBC 4.23 L (4.60-5.80) X10*6/uL Hgb 12.8 L (14.0-18.0) g/dl Hct 37.8 L (42.0-52.0) % MCV 89.4 (80.0-98.0) fL MCH 30.3 (27.0-33.0) pg MCHC 33.9 (31.0-36.0) g/dl RDW 12.2 (11.0-16.0) % Plt Count 177 (160-400) X10*3/uL MPV 9.1 L (9.4-12.4) fL Immature Gran % (Auto) 0.4 (0.0-0.4) % Neut % (Auto) 89.1 H (45-73) % Lymph % (Auto) 4.1 L (20-40) % Cuming % (Auto) 6.2 (2-11) % Eos % (Auto) 0.1 (0-4) % Baso % (Auto) 0.1 (0-2) % Lymph # (Auto) 0.6 L (1.2-4.9) X10*3/uL Cuming # (Auto) 0.8 (0.1-1.2) X10*3/uL Eos # (Auto) 0.0 (0.0-0.4) X10*3/uL Baso # (Auto) 0.0 (0.0-0.2) X10*3/uL Abs Immat Gran (auto) 0.05 H (0.00-0.03) X10*3/uL Absolute Neuts (auto) 11.9 H (2.0-8.3) x10*3/uL Absolute Nucleated RBC 0.000 (0.0-0.012) X10*3/uL Nucleated RBC % (auto) 0.0 (0.0-0.2) /100WBC Sodium 140 (135-145) mmol/L Potassium 3.8 (3.3-5.1) mmol/L Chloride 106 (96-108) mmol/L Carbon Dioxide 24 (22-29) mmol/L Anion Gap 14 (12-20) BUN 25 H (9-16) mg/dL Creatinine 0.78 (0.5-1.4) mg/dL Estim Creat Clear Calc 86.0 Estimated GFR > 60 Random Glucose 112 (60-115) mg/dL Calcium 9.5 D (8.4-10.2) mg/dL Total Bilirubin 0.4 (0.0-1.0) mg/dL AST 25 (5-37) U/L ALT 15 (0-40) U/L Alkaline Phosphatase 65 (39-117) U/L Total Protein 7.1 (6.5-8.0) g/dL Albumin 4.1 (3.5-5.0) g/dL Salicylates < 5.0 L (15-30) mg/dL Urine Opiates Screen Not Detected (Not Detect) Ur Buprenorphine Scrn Not Detected (Not Detect) ng/mL Ur Oxycodone Screen Not Detected (Not Detect) ng/mL Urine Methadone Screen Positive H (Not Detect) ng/mL Urine Fentanyl Screen Not Detected (Not Detect) Acetaminophen < 3 (<30) mcg/mL Ur Barbiturates Screen Not Detected (Not Detect) Ur Phencyclidine Scrn Not Detected (Not Detect) Ur Amphetamines Screen Not Detected (Not Detect) U Benzodiazepines Scrn Not Detected (Not Detect) Urine Cocaine Screen POSITIVE H (Not Detect) U Marijuana (THC) Screen POSITIVE H (Not Detect) Ethyl Alcohol < 10 mg/dL COVID-19 (WALTER) Negative (Negative) COVID-19 Clin Com See Note Independent Interpretation I performed an independent interpretation of an: EKG Interpretation: Normal sinus rhythm heart rate 73 beats per minute normal interval normal axis nonspecific STT wave changes no acute ischemia Discharge Plan Discharge Clinical Impression: Suicidal ideation, Depression, Cocaine abuse Patient Disposition: Still a Patient Prescriptions: No Action albuterol sulfate 90 mcg/actuation HFA aerosol inhaler 2 puff inhalation Q4-6H PRN (Reason: shortness of breath or wheezing) Qty: 8.5 0RF Interventions: [place]-Suicide Risk Severity Scale Last Done: 11/22/24 00:02 Print Language: Luxembourgish
--- NOTE | 2024-11-22 03:22 | PC.NURSE ---
Pt resting on stretcher eyes closed, skin pwd respirations even unlabored, NAD. Medically cleared, awaiting care team consult. Pt observer at bedside for safety, safety maintained.
[2024-11-22 03:23] VITALS: BP 113/64; PULSE 62; RESP 14; TEMP 36.8; O2SAT 96
--- NOTE | 2024-11-22 05:49 | PC.NURSE ---
Pt resting in bed eyes closed NAD. Skin pwd respirations even unlabored. Pt observer at bedside for safety, safety maintained. Awaiting care team eval, aware of plan of care.
--- NOTE | 2024-11-22 06:35 | PC.NURSE ---
Report given to Chelsi RN, pt awaiting security for transport to pod.
--- NOTE | 2024-11-22 06:45 | MHC.EDTECH ---
Patient was moved to the POD,belongings removed from [place] to [facility] 7 in the pod
--- NOTE | 2024-11-22 07:17 | PC.NURSE ---
Assumed care of patient at 0645, patient appears to be sleeping, respirations even and unlabored, no apparent distress noted. Continue plan of care for CARE team mitul
--- NOTE | 2024-11-22 08:30 | HE.PHANOTE ---
RE: METHADONE DOSING Last dose of methadone 120 mg was given on 11/21/24 1000 at [facility] [phone] per SADIE Valenzuela.
[2024-11-22] MEDS: methADONE HCl 20 MG/2 ML ORAL.CONC 120 MG PO (10:38)
--- NOTE | 2024-11-22 13:13 | MHC.RECOVRN ---
Met with pt, along with shear operator helper, in [facility] after cleared by CARE Team. Pt expressed interest in ATS. Pt reports cocaine use, 1-2 grams daily, INH, x 2 months. Pt is currently going to [facility], receiving 120 mg methadone daily x a couple months. Pt reports last use of opioids was a long tme ago. Pt is willing to go to any facility. Denies other questions or concerns for t/w. Will conduct bedsearch.
--- NOTE | 2024-11-22 13:19 | MHC.RECOVRN ---
[facility] does not have bed availability. [facility] does not accept pts with solely cocaine use into ATS. Their CSS is full. [facility] does not accept pts with solely cocaine use into ATS. Their CSS is full. Spoke with Jace House from [facility], reports bed availability for 7 day ATS then step down. Referral has been faxed.
--- NOTE | 2024-11-22 14:29 | MHC.EDTECH ---
Patient is sleeping at the moment.
--- NOTE | 2024-11-22 15:39 | MHC.RECOVRN ---
[facility] has declined pt for ATS admission, they suggest a dual diagnosis program. CARE Team aware.
--- NOTE | 2024-11-22 18:14 | PHA.MEDREC ---
Addendum entered by Randi Constantino RPh 11/22/24 18:23: Reviewed by pharmacist Original Note: Pharmacy Consult ? Medication Reconciliation Pharmacy has reviewed the medication reconciliation done by nursing.
[2024-11-22 18:44] VITALS: BP 121/71; PULSE 60; RESP 16; TEMP 37.1; O2SAT 97
--- NOTE | 2024-11-22 19:09 | PC.NURSE ---
patient appears to remain at rest presently respirations are even and unlabored patient appears in no distress.
[2024-11-23 06:27] VITALS: RESP 16
--- NOTE | 2024-11-23 09:11 | PC.NURSE ---
Recovery at beside with pt
[2024-11-23] MEDS: methADONE HCl 20 MG/2 ML ORAL.CONC 120 MG PO (10:13)
--- NOTE | 2024-11-23 10:54 | MHC.RECOVRN ---
Addendum entered by Antonio Sanchez RN 11/23/24 11:00: CSS referral has also been sent to [facility] CSS Original Note: CSS referrals have been sent to : [facility] and [facility].
[2024-11-23 11:01] VITALS: BP 128/78; PULSE 75; RESP 18; TEMP 36.6; O2SAT 98
--- NOTE | 2024-11-23 11:46 | MHC.RECOVRN ---
[facility] has a male bed available - Pt has been medically cleared by them and waiting for the behavioral review to be completed. Per staff at [facility] they will notify CARE team by the end of today with a decision.
[2024-11-23 18:31] VITALS: BP 103/64; PULSE 70; RESP 16; TEMP 36.6; O2SAT 97
--- NOTE | 2024-11-23 19:01 | PC.NURSE ---
patient appears to remain at rest presently respiration are even and unlabored patient appears in no distress.
[2024-11-24] MEDS: methADONE HCl 20 MG/2 ML ORAL.CONC 120 MG PO (07:43)
--- NOTE | 2024-11-24 08:22 | MHC.RECOVRN ---
Per staff at [facility] pt requires a higher level of care due to some claims in pt's chart regarding self harming threats when pt initially presented.
[2024-11-24 18:16] VITALS: BP 104/56; PULSE 56; RESP 16; TEMP 36.6; O2SAT 96
[2024-11-25 06:00] VITALS: BP 121/64; PULSE 72; RESP 17; TEMP 36.5; O2SAT 95
--- NOTE | 2024-11-25 06:19 | PC.NURSE ---
pt calm and cooperative, slept well throughout the night, symmetrical rise and fall of chest and unlabored respirations noted. 15 min checks throughout shift. pt did not display any behavioral concerns or symptoms of concern. plan of care ongoing.
--- NOTE | 2024-11-25 07:11 | PC.NURSE ---
Assumed care of patient at 0645, patient appears to be in no apparent distress this am, calm and cooperative, up to bathroom. Continue plan of care for dual dx
[2024-11-25] MEDS: methADONE HCl 20 MG/2 ML ORAL.CONC 120 MG PO (08:32)
[2024-11-25 14:45] VITALS: BP 112/67; PULSE 63; RESP 16; TEMP 36.6; O2SAT 98
--- NOTE | 2024-11-25 18:42 | PC.ADMIT ---
Kit was admitted to from [facility] pod on 11/25/24 at 14:41 on a 12a and signed a CV upon arrival. Skin/contraband check completed on arrival. Kit was brought in by ambulance for SI to cut his wrists. He states he is currently homeless and feels hopeless r/t substance abuse. Per crisis, he was reporting [facility] to harm himself. Upon arrival to the unit, he denies suicidal and homicidal thoughts and intent. He denies auditory and visual hallucinations. He states he feels he can seek out staff if feeling unsafe. He was pleasant and cooperative with admission process. He reports that he usually sleeps outside on the street and has poor sleep because of this. He reports losing approximately 40 pounds over the past few months due to his poor appetite related to substance abuse. He reports using crack cocaine and heroin approximately 2 weeks ago. His utox was positive for cocaine, THC, and methadone, BAL <10. He states that his goal for admission is to get clean and get outside providers/help. He reports history of asthma. He was oriented to the unit and placed on 15 minute checks.
[2024-11-25 20:00] VITALS: BP 119/68; PULSE 67; TEMP 36.3; O2SAT 97
[2024-11-25] MEDS: OLANZapine 5 MG TABLET PO (20:39)
[2024-11-25] MEDS: traZODone HCL 50 MG TABLET PO (21:29)
[2024-11-25] MEDS: Acetaminophen 325 MG TABLET 650 MG PO (21:30)
[2024-11-25] MEDS: Milk of Magnesia 30 ML ORAL.SUSP PO (21:31)
[2024-11-26] MEDS: methADONE HCl 20 MG/2 ML ORAL.CONC 120 MG PO (07:42)
[2024-11-26 08:06] VITALS: BP 115/62; PULSE 73; RESP 18; TEMP 36.6; O2SAT 98
[2024-11-26 08:16] LABS: Estimated Average Glucose 108 mg/dL; Hemoglobin A1C 123.7445 umol/L; Hemoglobin A1c % 5.4 % (<6.0); Total Hemoglobin (HGBA1C) 3516.6571 umol/L
[2024-11-26 08:30] LABS: Cholesterol 170 mg/dL (<200); HDL Cholesterol 47 mg/dL (>40); LDL Cholesterol Calculated 96 mg/dL (<100); Magnesium 2.1 mg/dL (1.6-2.6); Triglycerides 135 mg/dL (<150)
[2024-11-26 08:41] LABS: Free T4 (Free Thyroxine) 1.17 ng/dL (0.71-1.85); Thyroid Stimulating Hormone 1.13 uIU/mL (0.32-4.0)
[2024-11-26 08:52] LABS: Folate 7.7 ng/mL (> or = 4.0); Vitamin B12 546 pg/mL (200-900)
--- NOTE | 2024-11-26 09:48 | HO.PSYADMNOT ---
HPI Date of Service: 11/26/24 Chief Complaint: DEPRESSION, SI, OPIATE USE-METHADONE PT, POLYSUBST Sources of Information: patient interviewed, chart reviewed and crisis/core team assessment reviewed HPI Subjective Notes: Neal Warning and Conditional Voluntary Healthcare Proxy: No Guardianship: No Medical Problems Affecting Mental Status: No Narrative: Seen 1130am 59 yo male, to ER with EMS reporting SI with plans to cut his wrist, reports feeling hopeless, using crack. Toxicology positive for Methadone, Cocaine, Cannabis. Pt today asks for help with housing and addiction. I want to get clean. Interested in programs, recovery coaching, addictions consult. Reports being homeless for ~2 years. Has a legal case upcoming this month for drug possession and use. Reports depressive sx, thinking too much . States sx were present before addiction sx initiated. Pt reports sx of anxiety, depression AH,VH, lenka when under the influence where he was taken to hospital once. Reports decrease sleep and appetite along with minimal energy. Past Psychiatric History: IP: Denies, however reports substance abuse treatment hx and positive outcome- sober [id number]. OP: Denies Trials: Denies Methadone: [facility]rego, [facility] Medical Evaluation Reviewed: Yes [facility] Medical History (Updated 11/26/24 @ 17:59 by Marissa Anderson, GRADUATE RN) Cocaine dependence Opioid use disorder, severe, on maintenance therapy Asthma Family History: not that he is aware of Social History: Raised by parents and grandparents in [place]. To [place] in 1985. Has lived between [place] and [place]. 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 He was living in [place] prior to return to [place]. [facility] Legal case upcoming this month for drug use, possession. Hx of incarcerations for different offenes Substance History: crack~20 years, daily heroin-intranasally Opiates-currently on Methadone Trauma History: childhood-affirms Diagnostics Vital Signs (24Hr): Vital Signs - 24 hr 11/25/24 14:45 11/25/24 20:00 11/26/24 08:06 Temperature 97.9 F 97.3 F 97.8 F Pulse Rate 63 67 73 Respiratory Rate 16 18 Blood Pressure 112/67 119/68 115/62 Pulse Oximetry 98 97 98 Oxygen Delivery Method Room Air Room Air Room Air BMI result Body Mass Index 21.6 Labs 11/22/24 00:20 11/22/24 00:19 Labs: Laboratory Results - last 48 hr 11/26/24 07:55 Estimat Average Glucose 108 Hemoglobin A1c % 5.4 Magnesium 2.1 Triglycerides 135 Cholesterol 170 LDL Cholesterol, Calc 96 HDL Cholesterol 47 Vitamin B12 546 Folate 7.7 TSH 1.13 Free T4 1.17 Meds/Allergies Meds Home Medications ?Medication ?Instructions ?Recorded ?Confirmed ?Type methadone 10 mg/mL oral 120 mg PO DAILY 11/22/24 11/22/24 History concentrate (Methadone Intensol) Allergies Allergies Allergy/AdvReac Type Severity Reaction Status Date / Time No Known Allergies Allergy Verified 11/22/24 00:01 [No Known Allergies*] Mental Status Exam Mental Status Exam Patient Appearance: Fatigued Patient Orientation: Person, Place, Time and Situation Level of Consciousness: Alert Patient Behavior: Appropriate, Talkative and Cooperative Mood Description: Depressed Affect Description: Flat Patient Cognition Impaired: No Ability to Follow Directions: Good Speech Pattern: Spontaneous Speech Memory Description: Intact Hallucinations: Auditory and Visual Thought Process: Rumination Thought Content: positive for Circumstantial, positive for Goal Oriented, positive for Perseveration and positive for Suicidal Ideation Depressive Symptoms: Difficulty Sleeping, Changes in Appetite and Thoughts of /Suicide Judgement: Fair Assessment & Plan Assessment & Plan (1) Depression: Status: Acute Code(s): F32.A - Depression, unspecified (2) Suicidal ideation: Status: Acute Code(s): R45.851 - Suicidal ideations (3) Opioid use disorder, severe, on maintenance therapy: Status: Acute Code(s): F11.20 - Opioid dependence, uncomplicated (4) Cocaine dependence: Status: Acute Code(s): F14.20 - Cocaine dependence, uncomplicated Plan Depression with SI, Opiate Use Disorder-Methadone Maintenance, Cocaine Dependence. Plan: Admit, CV, 15 minute checks Collateral Contact Diagnostics as needed Encourage milieu involvement. Baclofen for withdrawal Topamax 25 mg bid-mood and cocaine withdrawal Olanzapine 5 mg bid for sx of psychosis Patient educated on: therapeutic strategies Reason for continued inpatient stay Substantial Risk for: rapid decompensation Statement Statement: I have reviewed the history and physical and performed a pertinent examination on my patient. No changes have occurred unless specified. If the History and Physical was not performed prior to admission, the Hospitalist's service will be consulted for completing the admission physical. Time Spent With Patient Time: Total time managing care of this patient today ____ minutes.
--- NOTE | 2024-11-26 10:48 | MHC.CLN ---
RE: CONSULT HT 65 WT 130# IBW 136#+/-10% PT IS 96% IBW RANGE INDICATES ADEQUATE WT FOR HT PT REPORTS WT LOSS R/T POOR APPETITE D/T POLY SUBSTANCE ABUSE CRACK/COCAINE/HEROIN AND HOMELESSNESS PT WITH 13% SIGNIFICANT WT LOSS [id number] REVIEWED LABS DIET RX: REGULAR MONITOR PO INTAKE WITH WEEKLY WEIGHTS IF PO INTAKE <25% X 3 DAYS, RECOMMEND ADDING NUTRITION SUPPLEMENT TO INCREASE KCALS
[2024-11-26] MEDS: Acetaminophen 325 MG TABLET 650 MG PO (11:20)
[2024-11-26 19:54] VITALS: BP 97/60; PULSE 81; TEMP 36.8; O2SAT 97
[2024-11-26] MEDS: Baclofen 10 MG TABLET PO (20:49)
[2024-11-26] MEDS: Topiramate 25 MG TABLET PO (20:49)
[2024-11-26] MEDS: OLANZapine 5 MG TABLET PO (20:49)
[2024-11-27] MEDS: methADONE HCl 20 MG/2 ML ORAL.CONC 120 MG PO (07:39)
[2024-11-27 08:00] VITALS: BP 145/68; PULSE 73; TEMP 36.8; O2SAT 98
[2024-11-27] MEDS: Acetaminophen 325 MG TABLET 650 MG PO ×2 (08:05→18:33)
[2024-11-27] MEDS: Topiramate 25 MG TABLET PO ×2 (08:06→22:11)
[2024-11-27] MEDS: Baclofen 10 MG TABLET PO ×2 (08:06→22:11)
[2024-11-27] MEDS: OLANZapine 5 MG TABLET PO ×2 (08:06→22:11)
--- NOTE | 2024-11-27 12:46 | HO.ADDICTCON ---
History of Present Illness Date of Service: 11/27/2024 Chief Complaint: DEPRESSION, SI, OPIATE USE-METHADONE PT, POLYSUBST Reason for Consult: FANNY Sources of Information: patient interviewed and chart reviewed HPI Narrative: Patient is a 59 year old male admitted to unit with worsening depression Consult requested as patient requested assistance in addressing current cocaine use Patient seen on M5, in exam room. He is awake, alert, pleasant and engaged in interview. Interview conducted in Bengali, patient preference, although he speaks and understands Sinhala well He reports that he started smoking crack cocaine about a year ago. Since then use, has progressed to about a gram per day. He states he has been in treatment for OUD for 2 years -methadone at [facility] in [facility]. Current dose 120mg. He denies any ongoing opiate use He is unhoused and finds that this contributes to his ongoing use Denies any alcohol use Denies any other substance use Past Psychiatric History: IP: Denies, however reports substance abuse treatment hx and positive outcome- sober [id number]. OP: Denies Trials: Denies Methadone: [facility], [facility] Review of Systems Constitutional: Reports as per HPI and Reports difficulty sleeping Diagnostics Vital Signs (24Hr): Vital Signs - 24 hr 11/26/24 19:54 11/27/24 08:00 Temperature 98.2 F 98.2 F Pulse Rate 81 73 Blood Pressure 97/60 145/68 H Pulse Oximetry 97 98 Oxygen Delivery Method Room Air Room Air BMI result Body Mass Index 21.6 Labs 11/22/24 00:20 11/22/24 00:19 Labs: Laboratory Results - last 48 hr 11/26/24 07:55 Estimat Average Glucose 108 Hemoglobin A1c % 5.4 Magnesium 2.1 Triglycerides 135 Cholesterol 170 LDL Cholesterol, Calc 96 HDL Cholesterol 47 Vitamin B12 546 Folate 7.7 TSH 1.13 Free T4 1.17 Mental Status Exam Mental Status Exam Patient Appearance: Appropriate (dressed in hospital attire, underweight ) Level of Consciousness: Awake and Appropriate Patient Behavior: Appropriate Mood Description: Calm Affect Description: Calm Speech Pattern: Clear Hallucinations: None Thought Process: Intact Thought Content: positive for Intact Judgement: Good Medications Medications Current Medications Acetaminophen (Acetaminophen 325 Mg Tablet) 650 mg PO Q6H PRN PRN Reason: pain 1-10 Last Admin: 11/27/24 08:05 Dose: 650 mg Al Hydroxide/Mg Hydroxide (Magnesium Hydrox/Alum Hydrox 30 Ml Oral.Susp) 30 ml PO Q6H PRN PRN Reason: Heartburn/Nausea Albuterol Sulfate (Albuterol Sulfate 90 Mcg 8 Gm Inhaler) 2 puff INHALE Q4H PRN PRN Reason: shortness of breath or wheezing Baclofen (Baclofen 10 Mg Tablet) 10 mg PO BID [facility] Last Admin: 11/27/24 08:06 Dose: 10 mg Hydroxyzine HCl (Hydroxyzine Hcl 25 Mg Tablet) 25 mg PO Q6H PRN PRN Reason: Anxiety Magnesium Hydroxide (Milk Of Magnesia 30 Ml Oral.Susp) 30 ml PO DAILY PRN PRN Reason: Constipation Last Admin: 11/25/24 21:31 Dose: 30 ml Methadone HCl (Methadone Hcl 20 Mg/2 Ml Oral.Conc) 120 mg PO DAILY [facility] Last Admin: 11/27/24 07:39 Dose: 120 mg Nicotine Polacrilex (Nicotine Polacrilex 2 Mg Gum) 4 mg BUCCAL Q2H PRN PRN Reason: Nicotine Cravings Olanzapine (Olanzapine 5 Mg Tablet) 5 mg PO Q4H PRN PRN Reason: agitation Last Admin: 11/25/24 20:39 Dose: 5 mg Olanzapine (Olanzapine 5 Mg Tablet) 5 mg PO BID [facility] Last Admin: 11/27/24 08:06 Dose: 5 mg Topiramate (Topiramate 25 Mg Tablet) 25 mg PO BID [facility] Last Admin: 11/27/24 08:06 Dose: 25 mg Trazodone HCl (Trazodone Hcl 50 Mg Tablet) 50 mg PO BEDTIME MRX1 PRN PRN Reason: Insomnia Last Admin: 11/25/24 21:29 Dose: 50 mg Allergies Allergies Allergy/AdvReac Type Severity Reaction Status Date / Time No Known Allergies Allergy Verified 11/22/24 00:01 [No Known Allergies*] Assessment & Plan Assessment & Plan (1) Opioid use disorder, severe, on maintenance therapy: Status: Acute Code(s): F11.20 - Opioid dependence, uncomplicated (2) Cocaine dependence: Status: Acute Code(s): F14.20 - Cocaine dependence, uncomplicated Assessment and Plan: continue topiramate --current dose 25mg BID. Dose can continue to be titrated to 50mg BID by the end of the week encouraged patient to explore [facility] in [facility]--they are open 7 days per week, and can provider structure and support during the day risk reduction discussion regarding safer smoking --patient states, I just want to be done with it will have aircraft engine mechanic provide stimulant clinic information to patient prior to discharge please reconsult if needed for any additional support Total time managing care of this patient today ____ minutes. PMFSH Past Medical History Medical History (Updated 11/26/24 @ 17:59 by Marissa Anderson APRN) Cocaine dependence Opioid use disorder, severe, on maintenance therapy Asthma Social History Social History Household Members: None Housing: Homeless Do you presently have visiting nurse or other home services: No Alcohol intake: unknown Patient Tobacco Use Status: Current everyday Tobacco user Tobacco use type: Cigarette Cigarette Packs Per Day: 0.5 Cigarettes Per Day: 10.0 Smoked in Last 30 Days: Yes e-Cigarette/Vaping Use: Never Used Patient Interested in Nicotine Replacement: Yes Patient Given Instructions on How to Stop Smoking: Yes Date Education Initiated: 11/25/24 Second Hand Smoke Exposure: No Use of substances other than those prescribed or required for medical reasons: Yes Substance Use Type: Crack/Cocaine and Heroin Substance Use Frequency: Daily Last Used Substance: Weeks (ago) Last Used Substance Other:: 2 weeks ago Currently Displaying Signs/Symptoms of Drug Intoxication Withdrawal: No Any prior treatment program specific to substance use: Yes Have you been hit, kicked, punched, or otherwise hurt by someone within the past year? If so, by whom?: No Do you feel safe in your current relationship?: No Current Relationship Is there a partner from a previous relationship who is making you feel unsafe now?: No Are you made to feel afraid or neglected: No Christian Healthcare Practices: Anabaptist Advance Directives: No Advance Directives Information Provided: Yes Do you have thoughts of harming others: None Do you have a plan to hurt others: No Plan Recently lost weight without trying: Yes How much weight loss: 34pounds or more Eating poorly because of decreased appetite: No Nutrition screen score: 6 Nutrition Risks: Emaciation/Cachexia Poor oral hygiene: Yes
--- NOTE | 2024-11-27 17:29 | HO.PSYCHPN ---
Subjective Subjective Date of Service: 11/27/24 Reason For Visit: DEPRESSION, SI, OPIATE USE-METHADONE PT, POLYSUBST Subjective Notes: Conditional Voluntary Healthcare Proxy: No Guardianship: No Medical Problems Affecting Mental Status: No Interim History: Reports a good visit with daughter last evening. Tolerating meds thus far, discussed feeling scared to leave the hospital and needing a clear plan. SI persists, and pt is beginning to engage with peers in milieu. Encouraged milieu groups. Continue plan at this time. Medication Compliance: Yes Side effects from medications: No Attending Groups: No Review of Systems Acute medical concerns: No Review of Systems Review of Systems denies Yes all other systems are reviewed and are negative Mental Status Exam Mental Status Exam Patient Appearance: Fatigued Patient Orientation: Person, Place, Time and Situation Level of Consciousness: Alert Patient Behavior: Appropriate, Talkative and Cooperative Mood Description: Depressed Affect Description: Flat Patient Cognition Impaired: No Ability to Follow Directions: Good Speech Pattern: Spontaneous Speech Memory Description: Intact Hallucinations: Auditory and Visual Thought Process: Rumination Thought Content: positive for Circumstantial, positive for Goal Oriented, positive for Perseveration and positive for Suicidal Ideation Depressive Symptoms: Difficulty Sleeping, Changes in Appetite and Thoughts of /Suicide Judgement: Fair Diagnostics Vital Signs (24Hr): Vital Signs - 24 hr 11/26/24 19:54 11/27/24 08:00 Temperature 98.2 F 98.2 F Pulse Rate 81 73 Blood Pressure 97/60 145/68 H Pulse Oximetry 97 98 Oxygen Delivery Method Room Air Room Air BMI result Body Mass Index 21.6 Labs 11/22/24 00:20 11/22/24 00:19 Labs: Laboratory Results - last 48 hr 11/26/24 07:55 Estimat Average Glucose 108 Hemoglobin A1c % 5.4 Magnesium 2.1 Triglycerides 135 Cholesterol 170 LDL Cholesterol, Calc 96 HDL Cholesterol 47 Vitamin B12 546 Folate 7.7 TSH 1.13 Free T4 1.17 Medications Medications Current Medications Acetaminophen (Acetaminophen 325 Mg Tablet) 650 mg PO Q6H PRN PRN Reason: pain 1-10 Last Admin: 11/27/24 08:05 Dose: 650 mg Al Hydroxide/Mg Hydroxide (Magnesium Hydrox/Alum Hydrox 30 Ml Oral.Susp) 30 ml PO Q6H PRN PRN Reason: Heartburn/Nausea Albuterol Sulfate (Albuterol Sulfate 90 Mcg 8 Gm Inhaler) 2 puff INHALE Q4H PRN PRN Reason: shortness of breath or wheezing Baclofen (Baclofen 10 Mg Tablet) 10 mg PO BID [facility] Last Admin: 11/27/24 08:06 Dose: 10 mg Hydroxyzine HCl (Hydroxyzine Hcl 25 Mg Tablet) 25 mg PO Q6H PRN PRN Reason: Anxiety Magnesium Hydroxide (Milk Of Magnesia 30 Ml Oral.Susp) 30 ml PO DAILY PRN PRN Reason: Constipation Last Admin: 11/25/24 21:31 Dose: 30 ml Methadone HCl (Methadone Hcl 20 Mg/2 Ml Oral.Conc) 120 mg PO DAILY [facility] Last Admin: 11/27/24 07:39 Dose: 120 mg Nicotine Polacrilex (Nicotine Polacrilex 2 Mg Gum) 4 mg BUCCAL Q2H PRN PRN Reason: Nicotine Cravings Olanzapine (Olanzapine 5 Mg Tablet) 5 mg PO Q4H PRN PRN Reason: agitation Last Admin: 11/25/24 20:39 Dose: 5 mg Olanzapine (Olanzapine 5 Mg Tablet) 5 mg PO BID [facility] Last Admin: 11/27/24 08:06 Dose: 5 mg Topiramate (Topiramate 25 Mg Tablet) 25 mg PO BID [facility] Last Admin: 11/27/24 08:06 Dose: 25 mg Trazodone HCl (Trazodone Hcl 50 Mg Tablet) 50 mg PO BEDTIME MRX1 PRN PRN Reason: Insomnia Last Admin: 11/25/24 21:29 Dose: 50 mg Allergies Allergies Allergy/AdvReac Type Severity Reaction Status Date / Time No Known Allergies Allergy Verified 11/22/24 00:01 [No Known Allergies*] Assessment & Plan Assessment & Plan (1) Opioid use disorder, severe, on maintenance therapy: Status: Acute Code(s): F11.20 - Opioid dependence, uncomplicated (2) Cocaine dependence: Status: Acute Code(s): F14.20 - Cocaine dependence, uncomplicated Assessment and Plan: continue topiramate --current dose 25mg BID. Dose can continue to be titrated to 50mg BID by the end of the week encouraged patient to explore [facility] in [facility]--they are open 7 days per week, and can provider structure and support during the day risk reduction discussion regarding safer smoking --patient states, I just want to be done with it will have it trainee provide stimulant clinic information to patient prior to discharge please reconsult if needed for any additional support (3) Depression: Status: Acute Code(s): F32.A - Depression, unspecified Plan 11/27/24: Continue regime/plan. Encourage milieu involvement Reason for continued inpatient stay Substantial Risk for: rapid decompensation Time Spent With Patient Time: Total time managing care of this patient today ____ minutes.
[2024-11-27 20:00] VITALS: BP 107/69; PULSE 87; RESP 16; TEMP 36.9; O2SAT 83
[2024-11-28 07:00] VITALS: BMI 22.7
[2024-11-28] MEDS: methADONE HCl 20 MG/2 ML ORAL.CONC 120 MG PO (07:49)
[2024-11-28 08:00] VITALS: BP 127/68; PULSE 76; RESP 16; TEMP 36.7; O2SAT 97
[2024-11-28] MEDS: OLANZapine 5 MG TABLET PO ×2 (08:12→22:01)
[2024-11-28] MEDS: Topiramate 25 MG TABLET PO ×2 (08:12→22:00)
[2024-11-28] MEDS: Baclofen 10 MG TABLET PO ×2 (08:12→21:59)
--- NOTE | 2024-11-28 14:41 | P.PNPSI_ITS ---
Subjective Subjective Date of Service: 11/28/24 Reason For Visit: DEPRESSION, SI, OPIATE USE-METHADONE PT, POLYSUBST Subjective Notes: Conditional Voluntary Interim History: Active on unit, observing laughing and joking with peers. Pt reports feeling good today; pt stated, I'm waiting to get into a program. I talked to my administrator social welfare . He reports sleeping well. denies SI/HI/VH/AH. denies any issues at this time. Medication Compliance: Yes Side effects from medications: No Mental Status Exam Mental Status Exam Patient Appearance: Appropriate Patient Orientation: Person, Place, Time and Situation Level of Consciousness: Awake Patient Behavior: Appropriate, Cooperative and Good Eye Contact Mood Description: Calm Affect Description: Calm Ability to Follow Directions: Good Speech Pattern: Clear Memory Description: Intact Hallucinations: None Delusions: Not Present Thought Process: Intact and Goal Oriented Thought Content: positive for Intact Diagnostics Vital Signs (24Hr): Vital Signs - 24 hr 11/27/24 20:00 Temperature 98.4 F Pulse Rate 87 Respiratory Rate 16 Blood Pressure 107/69 Pulse Oximetry 83 L Oxygen Delivery Method Room Air BMI result Body Mass Index 21.6 Labs 11/22/24 00:20 11/22/24 00:19 Medications Medications Current Medications Acetaminophen (Acetaminophen 325 Mg Tablet) 650 mg PO Q6H PRN PRN Reason: pain 1-10 Last Admin: 11/27/24 18:33 Dose: 650 mg Al Hydroxide/Mg Hydroxide (Magnesium Hydrox/Alum Hydrox 30 Ml Oral.Susp) 30 ml PO Q6H PRN PRN Reason: Heartburn/Nausea Albuterol Sulfate (Albuterol Sulfate 90 Mcg 8 Gm Inhaler) 2 puff INHALE Q4H PRN PRN Reason: shortness of breath or wheezing Baclofen (Baclofen 10 Mg Tablet) 10 mg PO BID [facility] Last Admin: 11/28/24 08:12 Dose: 10 mg Hydroxyzine HCl (Hydroxyzine Hcl 25 Mg Tablet) 25 mg PO Q6H PRN PRN Reason: Anxiety Magnesium Hydroxide (Milk Of Magnesia 30 Ml Oral.Susp) 30 ml PO DAILY PRN PRN Reason: Constipation Last Admin: 11/25/24 21:31 Dose: 30 ml Methadone HCl (Methadone Hcl 20 Mg/2 Ml Oral.Conc) 120 mg PO DAILY [facility] Last Admin: 11/28/24 07:49 Dose: 120 mg Nicotine Polacrilex (Nicotine Polacrilex 2 Mg Gum) 4 mg BUCCAL Q2H PRN PRN Reason: Nicotine Cravings Olanzapine (Olanzapine 5 Mg Tablet) 5 mg PO Q4H PRN PRN Reason: agitation Last Admin: 11/25/24 20:39 Dose: 5 mg Olanzapine (Olanzapine 5 Mg Tablet) 5 mg PO BID [facility] Last Admin: 11/28/24 08:12 Dose: 5 mg Topiramate (Topiramate 25 Mg Tablet) 25 mg PO BID [facility] Last Admin: 11/28/24 08:12 Dose: 25 mg Trazodone HCl (Trazodone Hcl 50 Mg Tablet) 50 mg PO BEDTIME MRX1 PRN PRN Reason: Insomnia Last Admin: 11/25/24 21:29 Dose: 50 mg Allergies Allergies Allergy/AdvReac Type Severity Reaction Status Date / Time No Known Allergies Allergy Verified 11/22/24 00:01 [No Known Allergies*] Assessment & Plan Assessment & Plan (1) Opioid use disorder, severe, on maintenance therapy: Status: Acute Code(s): F11.20 - Opioid dependence, uncomplicated (2) Cocaine dependence: Status: Acute Code(s): F14.20 - Cocaine dependence, uncomplicated Assessment and Plan: * continue topiramate --current dose 25mg BID. Dose can continue to be titrated to 50mg BID by the end of the week * encouraged patient to explore [facility] in [facility]--they are open 7 days per week, and can provider structure and support during the day * risk reduction discussion regarding safer smoking --patient states, I just want to be done with it * will have shellfish bed worker provide stimulant clinic information to patient prior to discharge * please reconsult if needed for any additional support (3) Depression: Status: Acute Code(s): F32.A - Depression, unspecified Plan 11/27/24: Continue regime/plan. Encourage milieu involvement 11/28: Active on unit, observing laughing and joking with peers. Pt reports feeling good today; pt stated, I'm waiting to get into a program. I talked to my administrator social welfare . He reports sleeping well. denies SI/HI/VH/AH. denies any issues at this time. Patient educated on: diagnosis and medication risk/benefits Reason for continued inpatient stay Substantial Risk for: med/psych decompensation Time Spent With Patient Time: Total time managing care of this patient today ____ minutes.
[2024-11-28] MEDS: traZODone HCL 50 MG TABLET PO (22:01)
[2024-11-29 08:00] VITALS: BP 137/63; PULSE 85; TEMP 37; O2SAT 100
[2024-11-29] MEDS: methADONE HCl 20 MG/2 ML ORAL.CONC 120 MG PO (08:03)
[2024-11-29] MEDS: OLANZapine 5 MG TABLET PO ×2 (09:04→21:25)
[2024-11-29] MEDS: Topiramate 25 MG TABLET PO ×2 (09:04→21:25)
[2024-11-29] MEDS: Baclofen 10 MG TABLET PO ×2 (09:04→21:25)
--- NOTE | 2024-11-29 09:49 | P.PNPSI_ITS ---
Subjective Subjective Date of Service: 11/29/24 Reason For Visit: DEPRESSION, SI, OPIATE USE-METHADONE PT, POLYSUBST Interim History: met with patient; discussed with team; reviewed chart Patient reports that he is still with depression and would like a medication that might help; will start Wellbutrin XL 150mg Mental Status Exam Mental Status Exam Patient Appearance: Appropriate Patient Orientation: Person, Place, Time and Situation Level of Consciousness: Awake Patient Behavior: Appropriate, Cooperative and Good Eye Contact Mood Description: Calm and Depressed Affect Description: Calm Ability to Follow Directions: Good Speech Pattern: Clear Memory Description: Intact Hallucinations: None Delusions: Not Present Thought Process: Intact and Goal Oriented Thought Content: positive for Intact Judgement and Insight: Fair Diagnostics Vital Signs (24Hr): Vital Signs - 24 hr 11/29/24 08:00 Temperature 98.6 F Pulse Rate 85 Blood Pressure 137/63 Pulse Oximetry 100 Oxygen Delivery Method Room Air BMI result Body Mass Index 22.7 Labs 11/22/24 00:20 11/22/24 00:19 Medications Medications Current Medications Acetaminophen (Acetaminophen 325 Mg Tablet) 650 mg PO Q6H PRN PRN Reason: pain 1-10 Last Admin: 11/27/24 18:33 Dose: 650 mg Al Hydroxide/Mg Hydroxide (Magnesium Hydrox/Alum Hydrox 30 Ml Oral.Susp) 30 ml PO Q6H PRN PRN Reason: Heartburn/Nausea Albuterol Sulfate (Albuterol Sulfate 90 Mcg 8 Gm Inhaler) 2 puff INHALE Q4H PRN PRN Reason: shortness of breath or wheezing Baclofen (Baclofen 10 Mg Tablet) 10 mg PO BID [facility] Last Admin: 11/29/24 09:04 Dose: 10 mg Hydroxyzine HCl (Hydroxyzine Hcl 25 Mg Tablet) 25 mg PO Q6H PRN PRN Reason: Anxiety Magnesium Hydroxide (Milk Of Magnesia 30 Ml Oral.Susp) 30 ml PO DAILY PRN PRN Reason: Constipation Last Admin: 11/25/24 21:31 Dose: 30 ml Methadone HCl (Methadone Hcl 20 Mg/2 Ml Oral.Conc) 120 mg PO DAILY [facility] Last Admin: 11/29/24 08:03 Dose: 120 mg Nicotine Polacrilex (Nicotine Polacrilex 2 Mg Gum) 4 mg BUCCAL Q2H PRN PRN Reason: Nicotine Cravings Olanzapine (Olanzapine 5 Mg Tablet) 5 mg PO Q4H PRN PRN Reason: agitation Last Admin: 11/25/24 20:39 Dose: 5 mg Olanzapine (Olanzapine 5 Mg Tablet) 5 mg PO BID [facility] Last Admin: 11/29/24 09:04 Dose: 5 mg Topiramate (Topiramate 25 Mg Tablet) 25 mg PO BID [facility] Last Admin: 11/29/24 09:04 Dose: 25 mg Trazodone HCl (Trazodone Hcl 50 Mg Tablet) 50 mg PO BEDTIME MRX1 PRN PRN Reason: Insomnia Last Admin: 11/28/24 22:01 Dose: 50 mg Allergies Allergies Allergy/AdvReac Type Severity Reaction Status Date / Time No Known Allergies Allergy Verified 11/22/24 00:01 [No Known Allergies*] Assessment & Plan Assessment & Plan (1) Depression: Status: Acute Code(s): F32.A - Depression, unspecified (2) Opioid use disorder, severe, on maintenance therapy: Status: Acute Code(s): F11.20 - Opioid dependence, uncomplicated (3) Cocaine dependence: Status: Acute Code(s): F14.20 - Cocaine dependence, uncomplicated Assessment and Plan: * continue topiramate --current dose 25mg BID. Dose can continue to be titrated to 50mg BID by the end of the week * encouraged patient to explore [facility] in [facility]--they are open 7 days per week, and can provider structure and support during the day * risk reduction discussion regarding safer smoking --patient states, I just want to be done with it * will have process equipment operator provide stimulant clinic information to patient prior to discharge * please reconsult if needed for any additional support Plan 11/27/24: Continue regime/plan. Encourage milieu involvement 11/28: Active on unit, observing laughing and joking with peers. Pt reports feeling good today; pt stated, I'm waiting to get into a program. I talked to my social insurance adviser . He reports sleeping well. denies SI/HI/VH/AH. denies any issues at this time. 11/29 though better than on admission, Patient reports that he is still with depression and would like a medication that might help; will start Wellbutrin XL 150mg Patient educated on: diagnosis and medication risk/benefits Informed Consent: understands Reason for continued inpatient stay Substantial Risk for: stable for discharge and med/psych decompensation Time Spent With Patient Time: Total time managing care of this patient today ____ minutes.
[2024-11-29 20:00] VITALS: BP 132/61; PULSE 92; TEMP 36.9; O2SAT 92
[2024-11-29] MEDS: traZODone HCL 50 MG TABLET PO (21:25)
[2024-11-30] MEDS: methADONE HCl 20 MG/2 ML ORAL.CONC 120 MG PO (07:54)
[2024-11-30 08:00] VITALS: BP 103/61; PULSE 80; RESP 16; TEMP 36.4; O2SAT 98
--- NOTE | 2024-11-30 08:14 | P.PNPSI_ITS ---
Subjective Subjective Date of Service: 11/30/24 Reason For Visit: DEPRESSION, SI, OPIATE USE-METHADONE PT, POLYSUBST Interim History: met with patient; discussed with team; reviewed chart. Is isolative and sleeping a lot. With staff writer reports that his mood is slowly getting better and he is feeling safer now. Watching television . Was observed in the milieu with roommate. Reports sleep has improved along with appetite. Denies suicidal thoughts. No med concerns. Hopeful for social work support after the weekend. Medication Compliance: Yes Side effects from medications: No Attending Groups: Intermittent Review of Systems Acute medical concerns: No Review of Systems Review of Systems intermittent headache Mental Status Exam Mental Status Exam Patient Appearance: Appropriate Patient Orientation: Person, Place, Time and Situation Level of Consciousness: Awake Patient Behavior: Appropriate, Cooperative and Good Eye Contact Mood Description: Calm and Depressed Affect Description: Calm Patient Cognition Impaired: No Ability to Follow Directions: Good Speech Pattern: Clear Memory Description: Intact Diagnostics Vital Signs (24Hr): Vital Signs - 24 hr 11/29/24 20:00 Temperature 98.4 F Pulse Rate 92 Blood Pressure 132/61 Pulse Oximetry 92 Oxygen Delivery Method Room Air BMI result Body Mass Index 22.7 Labs 11/22/24 00:20 11/22/24 00:19 Medications Medications Current Medications Acetaminophen (Acetaminophen 325 Mg Tablet) 650 mg PO Q6H PRN PRN Reason: pain 1-10 Last Admin: 11/27/24 18:33 Dose: 650 mg Al Hydroxide/Mg Hydroxide (Magnesium Hydrox/Alum Hydrox 30 Ml Oral.Susp) 30 ml PO Q6H PRN PRN Reason: Heartburn/Nausea Albuterol Sulfate (Albuterol Sulfate 90 Mcg 8 Gm Inhaler) 2 puff INHALE Q4H PRN PRN Reason: shortness of breath or wheezing Baclofen (Baclofen 10 Mg Tablet) 10 mg PO BID [facility] Last Admin: 11/29/24 21:25 Dose: 10 mg Bupropion HCl (Bupropion Hcl Xl 150 Mg Tab.Er.24h) 150 mg PO DAILY [facility] Hydroxyzine HCl (Hydroxyzine Hcl 25 Mg Tablet) 25 mg PO Q6H PRN PRN Reason: Anxiety Magnesium Hydroxide (Milk Of Magnesia 30 Ml Oral.Susp) 30 ml PO DAILY PRN PRN Reason: Constipation Last Admin: 11/25/24 21:31 Dose: 30 ml Methadone HCl (Methadone Hcl 20 Mg/2 Ml Oral.Conc) 120 mg PO DAILY [facility] Last Admin: 11/30/24 07:54 Dose: 120 mg Nicotine Polacrilex (Nicotine Polacrilex 2 Mg Gum) 4 mg BUCCAL Q2H PRN PRN Reason: Nicotine Cravings Olanzapine (Olanzapine 5 Mg Tablet) 5 mg PO Q4H PRN PRN Reason: agitation Last Admin: 11/25/24 20:39 Dose: 5 mg Olanzapine (Olanzapine 5 Mg Tablet) 5 mg PO BID [facility] Last Admin: 11/29/24 21:25 Dose: 5 mg Topiramate (Topiramate 25 Mg Tablet) 25 mg PO BID [facility] Last Admin: 11/29/24 21:25 Dose: 25 mg Trazodone HCl (Trazodone Hcl 50 Mg Tablet) 50 mg PO BEDTIME MRX1 PRN PRN Reason: Insomnia Last Admin: 11/29/24 21:25 Dose: 50 mg Allergies Allergies Allergy/AdvReac Type Severity Reaction Status Date / Time No Known Allergies Allergy Verified 11/22/24 00:01 [No Known Allergies*] Assessment & Plan Assessment & Plan (1) Depression: Status: Acute Code(s): F32.A - Depression, unspecified (2) Opioid use disorder, severe, on maintenance therapy: Status: Acute Code(s): F11.20 - Opioid dependence, uncomplicated (3) Cocaine dependence: Status: Acute Code(s): F14.20 - Cocaine dependence, uncomplicated Assessment and Plan: * continue topiramate --current dose 25mg BID. Dose can continue to be titrated to 50mg BID by the end of the week * encouraged patient to explore [facility] in [facility]--they are open 7 days per week, and can provider structure and support during the day * risk reduction discussion regarding safer smoking --patient states, I just want to be done with it * will have blender operator provide stimulant clinic information to patient prior to discharge * please reconsult if needed for any additional support Plan 11/27/24: Continue regime/plan. Encourage milieu involvement 11/28: Active on unit, observing laughing and joking with peers. Pt reports feeling good today; pt stated, I'm waiting to get into a program. I talked to my social media coordinator . He reports sleeping well. denies SI/HI/VH/AH. denies any issues at this time. 11/29 though better than on admission, Patient reports that he is still with depression and would like a medication that might help; will start Wellbutrin XL 150mg 11/30: no changes Reason for continued inpatient stay Substantial Risk for: harm to self and rapid decompensation Time Spent With Patient Time: Total time managing care of this patient today ____ minutes.
[2024-11-30] MEDS: Acetaminophen 325 MG TABLET 650 MG PO (08:22)
[2024-11-30] MEDS: Topiramate 25 MG TABLET PO ×2 (08:22→21:00)
[2024-11-30] MEDS: Baclofen 10 MG TABLET PO ×2 (08:22→21:00)
[2024-11-30] MEDS: OLANZapine 5 MG TABLET PO ×2 (08:22→21:00)
[2024-11-30] MEDS: buPROPion HCl XL 150 MG TAB.ER.24H PO (08:22)
[2024-11-30] MEDS: Ibuprofen 600 MG TABLET PO (13:53)
[2024-11-30 19:27] VITALS: BP 130/74; PULSE 90; TEMP 36.7; O2SAT 99
[2024-11-30] MEDS: traZODone HCL 50 MG TABLET PO ×2 (21:00→22:45)
[2024-12-01] MEDS: methADONE HCl 20 MG/2 ML ORAL.CONC 120 MG PO (07:42)
[2024-12-01 08:00] VITALS: BP 117/70; PULSE 75; RESP 18; TEMP 36.4; O2SAT 98
[2024-12-01] MEDS: Topiramate 25 MG TABLET PO ×2 (08:17→21:50)
[2024-12-01] MEDS: buPROPion HCl XL 150 MG TAB.ER.24H PO (08:17)
[2024-12-01] MEDS: OLANZapine 5 MG TABLET PO ×2 (08:17→21:50)
[2024-12-01] MEDS: Baclofen 10 MG TABLET PO ×2 (08:17→21:50)
--- NOTE | 2024-12-01 11:20 | HO.PSYCHPN ---
Subjective Subjective Date of Service: 12/01/24 Reason For Visit: DEPRESSION, SI, OPIATE USE-METHADONE PT, POLYSUBST Interim History: met with patient; discussed with team; reviewed chart. Is isolative and sleeping a lot. With lyric writer reports no major changes from yesterday ie mood is slowly improving and less scared. Sleep has improving along with appetite. Denies suicidal thoughts. No med concerns. Hopeful for social work support after the weekend. Medication Compliance: Yes Side effects from medications: No Attending Groups: No Review of Systems Acute medical concerns: No Mental Status Exam Mental Status Exam Patient Appearance: Appropriate Patient Orientation: Person, Place, Time and Situation Level of Consciousness: Awake Patient Behavior: Appropriate, Cooperative and Good Eye Contact Mood Description: Calm and Depressed Affect Description: Calm Patient Cognition Impaired: No Ability to Follow Directions: Good Speech Pattern: Clear Memory Description: Intact Diagnostics Vital Signs (24Hr): Vital Signs - 24 hr 11/30/24 19:27 12/01/24 08:00 Temperature 98.0 F 97.6 F Pulse Rate 90 75 Respiratory Rate 18 Blood Pressure 130/74 117/70 Pulse Oximetry 99 98 Oxygen Delivery Method Room Air Room Air BMI result Body Mass Index 22.7 Labs 11/22/24 00:20 11/22/24 00:19 Medications Medications Current Medications Acetaminophen (Acetaminophen 325 Mg Tablet) 650 mg PO Q6H PRN PRN Reason: pain 1-10 Last Admin: 11/30/24 08:22 Dose: 650 mg Al Hydroxide/Mg Hydroxide (Magnesium Hydrox/Alum Hydrox 30 Ml Oral.Susp) 30 ml PO Q6H PRN PRN Reason: Heartburn/Nausea Albuterol Sulfate (Albuterol Sulfate 90 Mcg 8 Gm Inhaler) 2 puff INHALE Q4H PRN PRN Reason: shortness of breath or wheezing Baclofen (Baclofen 10 Mg Tablet) 10 mg PO BID [facility] Last Admin: 12/01/24 08:17 Dose: 10 mg Bupropion HCl (Bupropion Hcl Xl 150 Mg Tab.Er.24h) 150 mg PO DAILY [facility] Last Admin: 12/01/24 08:17 Dose: 150 mg Hydroxyzine HCl (Hydroxyzine Hcl 25 Mg Tablet) 25 mg PO Q6H PRN PRN Reason: Anxiety Ibuprofen (Ibuprofen 600 Mg Tablet) 600 mg PO Q6H PRN PRN Reason: headache Last Admin: 11/30/24 13:53 Dose: 600 mg Magnesium Hydroxide (Milk Of Magnesia 30 Ml Oral.Susp) 30 ml PO DAILY PRN PRN Reason: Constipation Last Admin: 11/25/24 21:31 Dose: 30 ml Methadone HCl (Methadone Hcl 20 Mg/2 Ml Oral.Conc) 120 mg PO DAILY [facility] Last Admin: 12/01/24 07:42 Dose: 120 mg Nicotine Polacrilex (Nicotine Polacrilex 2 Mg Gum) 4 mg BUCCAL Q2H PRN PRN Reason: Nicotine Cravings Olanzapine (Olanzapine 5 Mg Tablet) 5 mg PO Q4H PRN PRN Reason: agitation Last Admin: 11/25/24 20:39 Dose: 5 mg Olanzapine (Olanzapine 5 Mg Tablet) 5 mg PO BID [facility] Last Admin: 12/01/24 08:17 Dose: 5 mg Topiramate (Topiramate 25 Mg Tablet) 25 mg PO BID [facility] Last Admin: 12/01/24 08:17 Dose: 25 mg Trazodone HCl (Trazodone Hcl 50 Mg Tablet) 50 mg PO BEDTIME MRX1 PRN PRN Reason: Insomnia Last Admin: 11/30/24 22:45 Dose: 50 mg Allergies Allergies Allergy/AdvReac Type Severity Reaction Status Date / Time No Known Allergies Allergy Verified 11/22/24 00:01 [No Known Allergies*] Assessment & Plan Assessment & Plan (1) Depression: Status: Acute Code(s): F32.A - Depression, unspecified (2) Opioid use disorder, severe, on maintenance therapy: Status: Acute Code(s): F11.20 - Opioid dependence, uncomplicated (3) Cocaine dependence: Status: Acute Code(s): F14.20 - Cocaine dependence, uncomplicated Assessment and Plan: continue topiramate --current dose 25mg BID. Dose can continue to be titrated to 50mg BID by the end of the week encouraged patient to explore [facility] in [facility]--they are open 7 days per week, and can provider structure and support during the day risk reduction discussion regarding safer smoking --patient states, I just want to be done with it will have sergeant of corrections provide stimulant clinic information to patient prior to discharge please reconsult if needed for any additional support Plan 11/27/24: Continue regime/plan. Encourage milieu involvement 11/28: Active on unit, observing laughing and joking with peers. Pt reports feeling good today; pt stated, I'm waiting to get into a program. I talked to my dialysis social worker . He reports sleeping well. denies SI/HI/VH/AH. denies any issues at this time. 11/29 though better than on admission, Patient reports that he is still with depression and would like a medication that might help; will start Wellbutrin XL 150mg 12/01: no changes Reason for continued inpatient stay Substantial Risk for: inability to function and rapid decompensation Time Spent With Patient Time: Total time managing care of this patient today ____ minutes.
[2024-12-01] MEDS: Acetaminophen 325 MG TABLET 650 MG PO ×2 (12:07→20:14)
[2024-12-01 20:00] VITALS: BP 116/61; PULSE 86; TEMP 36.7; O2SAT 97
[2024-12-01] MEDS: traZODone HCL 50 MG TABLET PO (21:50)
[2024-12-02] MEDS: methADONE HCl 20 MG/2 ML ORAL.CONC 120 MG PO (07:34)
[2024-12-02 08:00] VITALS: BP 100/55; PULSE 72; RESP 16; TEMP 36.3; O2SAT 96
[2024-12-02] MEDS: OLANZapine 5 MG TABLET PO ×2 (08:39→21:30)
[2024-12-02] MEDS: Topiramate 25 MG TABLET PO (08:39)
[2024-12-02] MEDS: Baclofen 10 MG TABLET PO ×2 (08:40→21:29)
[2024-12-02] MEDS: buPROPion HCl XL 150 MG TAB.ER.24H PO (08:40)
--- NOTE | 2024-12-02 10:14 | P.PNPSI_ITS ---
Subjective Subjective Date of Service: 12/02/24 Reason For Visit: DEPRESSION, SI, OPIATE USE-METHADONE PT, POLYSUBST Subjective Notes: Conditional Voluntary Healthcare Proxy: No Guardianship: No Medical Problems Affecting Mental Status: No Interim History: Reports no SI,HI, AH,VH. Tells team depression/anxiety sx 03/29 Slept 8 hours however reports sleep interruption. Social with room-mate, today, some URI sx, headache . Encouraged prn use Reports med regime effective. Medication Compliance: Yes Side effects from medications: No Attending Groups: Intermittent Review of Systems as noted in HPI Medical Review of Systems: unchanged Review of Systems Review of Systems Yes all other systems are reviewed and are negative Mental Status Exam Mental Status Exam Patient Appearance: Appropriate Patient Orientation: Person, Place, Time and Situation Level of Consciousness: Alert Patient Behavior: Talkative and Good Eye Contact Mood Description: Constricted Affect Description: Constricted Patient Cognition Impaired: No Ability to Follow Directions: Good Speech Pattern: Spontaneous Speech Memory Description: Episodic Impaired Hallucinations: None Delusions: Not Present Thought Content: positive for Circumstantial and positive for Perseveration Depressive Symptoms: Low Self Esteem and Loss of Energy Judgement: Fair Diagnostics Vital Signs (24Hr): Vital Signs - 24 hr 12/01/24 20:00 12/02/24 08:00 Temperature 98.0 F 97.3 F Pulse Rate 86 72 Respiratory Rate 16 Blood Pressure 116/61 100/55 L Pulse Oximetry 97 96 Oxygen Delivery Method Room Air BMI result Body Mass Index 22.7 Labs 11/22/24 00:20 11/22/24 00:19 Medications Medications Current Medications Acetaminophen (Acetaminophen 325 Mg Tablet) 650 mg PO Q6H PRN PRN Reason: pain 1-10 Last Admin: 12/01/24 20:14 Dose: 650 mg Al Hydroxide/Mg Hydroxide (Magnesium Hydrox/Alum Hydrox 30 Ml Oral.Susp) 30 ml PO Q6H PRN PRN Reason: Heartburn/Nausea Albuterol Sulfate (Albuterol Sulfate 90 Mcg 8 Gm Inhaler) 2 puff INHALE Q4H PRN PRN Reason: shortness of breath or wheezing Baclofen (Baclofen 10 Mg Tablet) 10 mg PO BID [facility] Last Admin: 12/02/24 08:40 Dose: 10 mg Bupropion HCl (Bupropion Hcl Xl 150 Mg Tab.Er.24h) 150 mg PO DAILY [facility] Last Admin: 12/02/24 08:40 Dose: 150 mg Hydroxyzine HCl (Hydroxyzine Hcl 25 Mg Tablet) 25 mg PO Q6H PRN PRN Reason: Anxiety Ibuprofen (Ibuprofen 600 Mg Tablet) 600 mg PO Q6H PRN PRN Reason: headache Last Admin: 11/30/24 13:53 Dose: 600 mg Magnesium Hydroxide (Milk Of Magnesia 30 Ml Oral.Susp) 30 ml PO DAILY PRN PRN Reason: Constipation Last Admin: 11/25/24 21:31 Dose: 30 ml Methadone HCl (Methadone Hcl 20 Mg/2 Ml Oral.Conc) 120 mg PO DAILY [facility] Last Admin: 12/02/24 07:34 Dose: 120 mg Nicotine Polacrilex (Nicotine Polacrilex 2 Mg Gum) 4 mg BUCCAL Q2H PRN PRN Reason: Nicotine Cravings Olanzapine (Olanzapine 5 Mg Tablet) 5 mg PO Q4H PRN PRN Reason: agitation Last Admin: 11/25/24 20:39 Dose: 5 mg Olanzapine (Olanzapine 5 Mg Tablet) 5 mg PO BID [facility] Last Admin: 12/02/24 08:39 Dose: 5 mg Topiramate (Topiramate 25 Mg Tablet) 50 mg PO BID [facility] Trazodone HCl (Trazodone Hcl 50 Mg Tablet) 50 mg PO BEDTIME MRX1 PRN PRN Reason: Insomnia Last Admin: 12/01/24 21:50 Dose: 50 mg Allergies Allergies Allergy/AdvReac Type Severity Reaction Status Date / Time No Known Allergies Allergy Verified 11/22/24 00:01 [No Known Allergies*] Assessment & Plan Assessment & Plan (1) Depression: Status: Acute Code(s): F32.A - Depression, unspecified (2) Opioid use disorder, severe, on maintenance therapy: Status: Acute Code(s): F11.20 - Opioid dependence, uncomplicated (3) Cocaine dependence: Status: Acute Code(s): F14.20 - Cocaine dependence, uncomplicated Assessment and Plan: * continue topiramate --current dose 25mg BID. Dose can continue to be titrated to 50mg BID by the end of the week * encouraged patient to explore [facility] in [facility]--they are open 7 days per week, and can provider structure and support during the day * risk reduction discussion regarding safer smoking --patient states, I just want to be done with it * will have contact agent provide stimulant clinic information to patient prior to discharge * please reconsult if needed for any additional support Plan 11/27/24: Continue regime/plan. Encourage milieu involvement 11/28: Active on unit, observing laughing and joking with peers. Pt reports feeling good today; pt stated, I'm waiting to get into a program. I talked to my foster care social worker . He reports sleeping well. denies SI/HI/VH/AH. denies any issues at this time. 11/29 though better than on admission, Patient reports that he is still with depression and would like a medication that might help; will start Wellbutrin XL 150mg 12/01: no changes 12/02: Increase Topiramate to 50 mg bid Reason for continued inpatient stay Substantial Risk for: rapid decompensation Time Spent With Patient Time: Total time managing care of this patient today ____ minutes.
[2024-12-02] MEDS: Acetaminophen 325 MG TABLET 650 MG PO (11:18)
[2024-12-02] MEDS: Topiramate 25 MG TABLET 50 MG PO (21:29)
[2024-12-03] MEDS: methADONE HCl 20 MG/2 ML ORAL.CONC 120 MG PO (07:55)
[2024-12-03 08:00] VITALS: BP 108/59; PULSE 83; RESP 16; TEMP 36.1; O2SAT 97
[2024-12-03] MEDS: buPROPion HCl XL 150 MG TAB.ER.24H PO (08:21)
[2024-12-03] MEDS: OLANZapine 5 MG TABLET PO ×2 (08:21→21:45)
[2024-12-03] MEDS: Topiramate 25 MG TABLET 50 MG PO ×2 (08:21→21:42)
[2024-12-03] MEDS: Baclofen 10 MG TABLET PO ×2 (08:21→21:42)
--- NOTE | 2024-12-03 10:12 | P.PNPSI_ITS ---
Subjective Subjective Date of Service: 12/03/24 Reason For Visit: DEPRESSION, SI, OPIATE USE-METHADONE PT, POLYSUBST Subjective Notes: Conditional Voluntary Healthcare Proxy: No Guardianship: No Medical Problems Affecting Mental Status: No Interim History: Kit reports he is anxious and apprehensive in waiting for a program. Meds he reports are tolerated. He denies SE and reports some efficacy. He reports he is connected with family-mother, daughter, and has their support for ongoing treatment Denies SI,HI, AH,VH We await program options Medication Compliance: Yes Side effects from medications: No Attending Groups: Intermittent Review of Systems Acute medical concerns: No Medical Review of Systems: unchanged Review of Systems Review of Systems Today reports a decrease in headaches Mental Status Exam Mental Status Exam Patient Appearance: Appropriate Patient Orientation: Person, Place, Time and Situation Level of Consciousness: Alert Patient Behavior: Talkative and Good Eye Contact Mood Description: Flat Affect Description: Flat Patient Cognition Impaired: No Ability to Follow Directions: Good Speech Pattern: Spontaneous Speech Memory Description: Episodic Impaired Hallucinations: None Delusions: Not Present Thought Process: Intact and Goal Oriented Thought Content: positive for Circumstantial, positive for Goal Oriented, positive for Perseveration and positive for Suicidal Ideation (denies) Depressive Symptoms: Thoughts of /Suicide (denies), Low Self Esteem and Loss of Energy Judgement: Fair Diagnostics Vital Signs (24Hr): Vital Signs - 24 hr 12/03/24 08:00 Temperature 97.0 F Pulse Rate 83 Respiratory Rate 16 Blood Pressure 108/59 L Pulse Oximetry 97 Oxygen Delivery Method Room Air BMI result Body Mass Index 22.7 Labs 11/22/24 00:20 11/22/24 00:19 Medications Medications Current Medications Acetaminophen (Acetaminophen 325 Mg Tablet) 650 mg PO Q6H PRN PRN Reason: pain 1-10 Last Admin: 12/02/24 11:18 Dose: 650 mg Al Hydroxide/Mg Hydroxide (Magnesium Hydrox/Alum Hydrox 30 Ml Oral.Susp) 30 ml PO Q6H PRN PRN Reason: Heartburn/Nausea Albuterol Sulfate (Albuterol Sulfate 90 Mcg 8 Gm Inhaler) 2 puff INHALE Q4H PRN PRN Reason: shortness of breath or wheezing Baclofen (Baclofen 10 Mg Tablet) 10 mg PO BID [facility] Last Admin: 12/03/24 08:21 Dose: 10 mg Bupropion HCl (Bupropion Hcl Xl 150 Mg Tab.Er.24h) 150 mg PO DAILY [facility] Last Admin: 12/03/24 08:21 Dose: 150 mg Hydroxyzine HCl (Hydroxyzine Hcl 25 Mg Tablet) 25 mg PO Q6H PRN PRN Reason: Anxiety Ibuprofen (Ibuprofen 600 Mg Tablet) 600 mg PO Q6H PRN PRN Reason: headache Last Admin: 11/30/24 13:53 Dose: 600 mg Magnesium Hydroxide (Milk Of Magnesia 30 Ml Oral.Susp) 30 ml PO DAILY PRN PRN Reason: Constipation Last Admin: 11/25/24 21:31 Dose: 30 ml Methadone HCl (Methadone Hcl 20 Mg/2 Ml Oral.Conc) 120 mg PO DAILY [facility] Last Admin: 12/03/24 07:55 Dose: 120 mg Nicotine Polacrilex (Nicotine Polacrilex 2 Mg Gum) 4 mg BUCCAL Q2H PRN PRN Reason: Nicotine Cravings Olanzapine (Olanzapine 5 Mg Tablet) 5 mg PO Q4H PRN PRN Reason: agitation Last Admin: 11/25/24 20:39 Dose: 5 mg Olanzapine (Olanzapine 5 Mg Tablet) 5 mg PO BID [facility] Last Admin: 12/03/24 08:21 Dose: 5 mg Topiramate (Topiramate 25 Mg Tablet) 50 mg PO BID [facility] Last Admin: 12/03/24 08:21 Dose: 50 mg Trazodone HCl (Trazodone Hcl 50 Mg Tablet) 50 mg PO BEDTIME MRX1 PRN PRN Reason: Insomnia Last Admin: 12/01/24 21:50 Dose: 50 mg Allergies Allergies Allergy/AdvReac Type Severity Reaction Status Date / Time No Known Allergies Allergy Verified 11/22/24 00:01 [No Known Allergies*] Assessment & Plan Assessment & Plan (1) Depression: Status: Acute Code(s): F32.A - Depression, unspecified (2) Opioid use disorder, severe, on maintenance therapy: Status: Acute Code(s): F11.20 - Opioid dependence, uncomplicated (3) Cocaine dependence: Status: Acute Code(s): F14.20 - Cocaine dependence, uncomplicated Assessment and Plan: * continue topiramate --current dose 25mg BID. Dose can continue to be titrated to 50mg BID by the end of the week * encouraged patient to explore [facility] in [facility]--they are open 7 days per week, and can provider structure and support during the day * risk reduction discussion regarding safer smoking --patient states, I just want to be done with it * will have lecturer of portuguese provide stimulant clinic information to patient prior to discharge * please reconsult if needed for any additional support Plan 11/27/24: Continue regime/plan. Encourage milieu involvement 11/28: Active on unit, observing laughing and joking with peers. Pt reports feeling good today; pt stated, I'm waiting to get into a program. I talked to my secondary social studies teacher . He reports sleeping well. denies SI/HI/VH/AH. denies any issues at this time. 11/29 though better than on admission, Patient reports that he is still with depression and would like a medication that might help; will start Wellbutrin XL 150mg 12/01: no changes 12/03 Continue tx Reason for continued inpatient stay Substantial Risk for: rapid decompensation Time Spent With Patient Time: Total time managing care of this patient today ____ minutes.
[2024-12-03] MEDS: Ibuprofen 600 MG TABLET PO ×2 (10:47→21:42)
[2024-12-03 20:00] VITALS: BP 121/62; PULSE 85; RESP 16; TEMP 36.4; O2SAT 98
[2024-12-03] MEDS: traZODone HCL 50 MG TABLET PO (21:42)
--- NOTE | 2024-12-04 05:22 | PC.NURSE ---
Patient appeared to have slept at least 7 hours with medications.
[2024-12-04] MEDS: methADONE HCl 20 MG/2 ML ORAL.CONC 120 MG PO (08:05)
[2024-12-04] MEDS: OLANZapine 5 MG TABLET PO ×2 (08:58→21:01)
[2024-12-04] MEDS: buPROPion HCl XL 150 MG TAB.ER.24H PO (08:58)
[2024-12-04] MEDS: Baclofen 10 MG TABLET PO ×2 (08:58→21:01)
[2024-12-04] MEDS: Topiramate 25 MG TABLET 50 MG PO ×2 (09:22→21:01)
[2024-12-04 09:56] VITALS: BP 108/62; PULSE 85; TEMP 36.3; O2SAT 96
[2024-12-04] MEDS: Ibuprofen 600 MG TABLET PO (12:41)
[2024-12-04 19:59] VITALS: BP 117/59; PULSE 88; TEMP 36.3; O2SAT 98
--- NOTE | 2024-12-04 20:54 | HO.PSYCHPN ---
Subjective Subjective Date of Service: 12/04/24 Reason For Visit: DEPRESSION, SI, OPIATE USE-METHADONE PT, POLYSUBST Subjective Notes: Conditional Voluntary Healthcare Proxy: No Guardianship: No Medical Problems Affecting Mental Status: No Interim History: Pt continues to await word regarding program acceptance. Today he is in milieu, engaged with peers, appearing brighter. I feel nervous about going to another place . Denies SI,HI,AH,VH Medication Compliance: Yes Side effects from medications: No Attending Groups: Intermittent Review of Systems Acute medical concerns: No Medical Review of Systems: unchanged Review of Systems Review of Systems Yes all other systems are reviewed and are negative Mental Status Exam Mental Status Exam Patient Appearance: Appropriate Patient Orientation: Person, Place, Time and Situation Level of Consciousness: Alert Patient Behavior: Talkative and Good Eye Contact Mood Description: Anxious and Apprehensive Affect Description: Anxious and Apprehensive Patient Cognition Impaired: No Ability to Follow Directions: Good Speech Pattern: Spontaneous Speech Memory Description: Episodic Impaired Hallucinations: None Delusions: Not Present Thought Process: Intact and Goal Oriented Thought Content: positive for Circumstantial, positive for Goal Oriented, positive for Perseveration and positive for Suicidal Ideation (denies) Depressive Symptoms: Thoughts of /Suicide (denies) and Low Self Esteem Judgement: Fair Diagnostics Vital Signs (24Hr): Vital Signs - 24 hr 12/04/24 09:56 12/04/24 19:59 Temperature 97.3 F 97.3 F Pulse Rate 85 88 Blood Pressure 108/62 117/59 L Pulse Oximetry 96 98 Oxygen Delivery Method Room Air BMI result Body Mass Index 22.7 Labs 11/22/24 00:20 11/22/24 00:19 Medications Medications Current Medications Acetaminophen (Acetaminophen 325 Mg Tablet) 650 mg PO Q6H PRN PRN Reason: pain 1-10 Last Admin: 12/02/24 11:18 Dose: 650 mg Al Hydroxide/Mg Hydroxide (Magnesium Hydrox/Alum Hydrox 30 Ml Oral.Susp) 30 ml PO Q6H PRN PRN Reason: Heartburn/Nausea Albuterol Sulfate (Albuterol Sulfate 90 Mcg 8 Gm Inhaler) 2 puff INHALE Q4H PRN PRN Reason: shortness of breath or wheezing Baclofen (Baclofen 10 Mg Tablet) 10 mg PO BID [facility] Last Admin: 12/04/24 08:58 Dose: 10 mg Bupropion HCl (Bupropion Hcl Xl 150 Mg Tab.Er.24h) 150 mg PO DAILY [facility] Last Admin: 12/04/24 08:58 Dose: 150 mg Hydroxyzine HCl (Hydroxyzine Hcl 25 Mg Tablet) 25 mg PO Q6H PRN PRN Reason: Anxiety Ibuprofen (Ibuprofen 600 Mg Tablet) 600 mg PO Q6H PRN PRN Reason: headache Last Admin: 12/04/24 12:41 Dose: 600 mg Magnesium Hydroxide (Milk Of Magnesia 30 Ml Oral.Susp) 30 ml PO DAILY PRN PRN Reason: Constipation Last Admin: 11/25/24 21:31 Dose: 30 ml Methadone HCl (Methadone Hcl 20 Mg/2 Ml Oral.Conc) 120 mg PO DAILY [facility] Last Admin: 12/04/24 08:05 Dose: 120 mg Nicotine Polacrilex (Nicotine Polacrilex 2 Mg Gum) 4 mg BUCCAL Q2H PRN PRN Reason: Nicotine Cravings Olanzapine (Olanzapine 5 Mg Tablet) 5 mg PO Q4H PRN PRN Reason: agitation Last Admin: 11/25/24 20:39 Dose: 5 mg Olanzapine (Olanzapine 5 Mg Tablet) 5 mg PO BID [facility] Last Admin: 12/04/24 08:58 Dose: 5 mg Topiramate (Topiramate 25 Mg Tablet) 50 mg PO BID [facility] Last Admin: 12/04/24 09:22 Dose: 50 mg Trazodone HCl (Trazodone Hcl 50 Mg Tablet) 50 mg PO BEDTIME MRX1 PRN PRN Reason: Insomnia Last Admin: 12/03/24 21:42 Dose: 50 mg Allergies Allergies Allergy/AdvReac Type Severity Reaction Status Date / Time No Known Allergies Allergy Verified 11/22/24 00:01 [No Known Allergies*] Assessment & Plan Assessment & Plan (1) Depression: Status: Acute Code(s): F32.A - Depression, unspecified (2) Opioid use disorder, severe, on maintenance therapy: Status: Acute Code(s): F11.20 - Opioid dependence, uncomplicated (3) Cocaine dependence: Status: Acute Code(s): F14.20 - Cocaine dependence, uncomplicated Assessment and Plan: continue topiramate --current dose 25mg BID. Dose can continue to be titrated to 50mg BID by the end of the week encouraged patient to explore [facility] in [facility]--they are open 7 days per week, and can provider structure and support during the day risk reduction discussion regarding safer smoking --patient states, I just want to be done with it will have construction crew member provide stimulant clinic information to patient prior to discharge please reconsult if needed for any additional support Plan 11/27/24: Continue regime/plan. Encourage milieu involvement 11/28: Active on unit, observing laughing and joking with peers. Pt reports feeling good today; pt stated, I'm waiting to get into a program. I talked to my social services analyst . He reports sleeping well. denies SI/HI/VH/AH. denies any issues at this time. 11/29 though better than on admission, Patient reports that he is still with depression and would like a medication that might help; will start Wellbutrin XL 150mg 12/01: no changes 12/02: Increase Topiramate to 50 mg bid 12/04: Continue tx Reason for continued inpatient stay Substantial Risk for: rapid decompensation Time Spent With Patient Time: Total time managing care of this patient today ____ minutes.
[2024-12-04] MEDS: traZODone HCL 50 MG TABLET PO ×2 (21:01→23:56)
[2024-12-05 07:00] VITALS: BMI 24.5
[2024-12-05 08:00] VITALS: BP 110/61; PULSE 86; RESP 16; TEMP 36.4; O2SAT 96
[2024-12-05] MEDS: methADONE HCl 20 MG/2 ML ORAL.CONC 120 MG PO (08:12)
[2024-12-05] MEDS: Topiramate 25 MG TABLET 50 MG PO ×2 (09:04→21:30)
[2024-12-05] MEDS: Baclofen 10 MG TABLET PO ×2 (09:04→21:31)
[2024-12-05] MEDS: buPROPion HCl XL 150 MG TAB.ER.24H PO (09:04)
[2024-12-05] MEDS: Ibuprofen 600 MG TABLET PO (09:04)
[2024-12-05] MEDS: OLANZapine 5 MG TABLET PO ×2 (09:05→21:30)
[2024-12-05] MEDS: Acetaminophen 325 MG TABLET 650 MG PO (11:32)
--- NOTE | 2024-12-05 11:42 | HO.PSYCHPN ---
Subjective Subjective Date of Service: 12/05/24 Reason For Visit: DEPRESSION, SI, OPIATE USE-METHADONE PT, POLYSUBST Subjective Notes: Conditional Voluntary Healthcare Proxy: No Guardianship: No Medical Problems Affecting Mental Status: No Interim History: Pt is accepted for [facility] for 12/06. He is feeling prepared but is apprehensive. He reports he believes his family will provide his transportation. Denies med SE Denies SI,HI, AH,VH No sx of acute lenka or psychosis Medication Compliance: Yes Side effects from medications: No Attending Groups: Intermittent Review of Systems Acute medical concerns: No Review of Systems Review of Systems Yes all other systems are reviewed and are negative Mental Status Exam Mental Status Exam Patient Appearance: Appropriate Patient Orientation: Person, Place, Time and Situation Level of Consciousness: Alert Patient Behavior: Talkative and Good Eye Contact Mood Description: Anxious and Apprehensive Affect Description: Anxious and Apprehensive Patient Cognition Impaired: No Ability to Follow Directions: Good Speech Pattern: Spontaneous Speech Memory Description: Episodic Impaired Hallucinations: None Delusions: Not Present Thought Process: Intact and Goal Oriented Thought Content: positive for Circumstantial, positive for Goal Oriented, positive for Perseveration and positive for Suicidal Ideation (denies) Depressive Symptoms: Thoughts of /Suicide (denies) and Low Self Esteem Judgement: Fair Diagnostics Vital Signs (24Hr): Vital Signs - 24 hr 12/04/24 19:59 12/05/24 08:00 Temperature 97.3 F 97.5 F Pulse Rate 88 86 Respiratory Rate 16 Blood Pressure 117/59 L 110/61 Pulse Oximetry 98 96 Oxygen Delivery Method Room Air BMI result Body Mass Index 22.7 Labs 11/22/24 00:20 11/22/24 00:19 Medications Medications Current Medications Acetaminophen (Acetaminophen 325 Mg Tablet) 650 mg PO Q6H PRN PRN Reason: pain 1-10 Last Admin: 12/05/24 11:32 Dose: 650 mg Al Hydroxide/Mg Hydroxide (Magnesium Hydrox/Alum Hydrox 30 Ml Oral.Susp) 30 ml PO Q6H PRN PRN Reason: Heartburn/Nausea Albuterol Sulfate (Albuterol Sulfate 90 Mcg 8 Gm Inhaler) 2 puff INHALE Q4H PRN PRN Reason: shortness of breath or wheezing Baclofen (Baclofen 10 Mg Tablet) 10 mg PO BID [facility] Last Admin: 12/05/24 09:04 Dose: 10 mg Bupropion HCl (Bupropion Hcl Xl 150 Mg Tab.Er.24h) 150 mg PO DAILY [facility] Last Admin: 12/05/24 09:04 Dose: 150 mg Hydroxyzine HCl (Hydroxyzine Hcl 25 Mg Tablet) 25 mg PO Q6H PRN PRN Reason: Anxiety Ibuprofen (Ibuprofen 600 Mg Tablet) 600 mg PO Q6H PRN PRN Reason: headache Last Admin: 12/05/24 09:04 Dose: 600 mg Magnesium Hydroxide (Milk Of Magnesia 30 Ml Oral.Susp) 30 ml PO DAILY PRN PRN Reason: Constipation Last Admin: 11/25/24 21:31 Dose: 30 ml Methadone HCl (Methadone Hcl 20 Mg/2 Ml Oral.Conc) 120 mg PO DAILY [facility] Last Admin: 12/05/24 08:12 Dose: 120 mg Nicotine Polacrilex (Nicotine Polacrilex 2 Mg Gum) 4 mg BUCCAL Q2H PRN PRN Reason: Nicotine Cravings Olanzapine (Olanzapine 5 Mg Tablet) 5 mg PO Q4H PRN PRN Reason: agitation Last Admin: 11/25/24 20:39 Dose: 5 mg Olanzapine (Olanzapine 5 Mg Tablet) 5 mg PO BID [facility] Last Admin: 12/05/24 09:05 Dose: 5 mg Topiramate (Topiramate 25 Mg Tablet) 50 mg PO BID [facility] Last Admin: 12/05/24 09:04 Dose: 50 mg Trazodone HCl (Trazodone Hcl 50 Mg Tablet) 50 mg PO BEDTIME MRX1 PRN PRN Reason: Insomnia Last Admin: 12/04/24 23:56 Dose: 50 mg Allergies Allergies Allergy/AdvReac Type Severity Reaction Status Date / Time No Known Allergies Allergy Verified 11/22/24 00:01 [No Known Allergies*] Assessment & Plan Assessment & Plan (1) Depression: Status: Acute Code(s): F32.A - Depression, unspecified (2) Opioid use disorder, severe, on maintenance therapy: Status: Acute Code(s): F11.20 - Opioid dependence, uncomplicated (3) Cocaine dependence: Status: Acute Code(s): F14.20 - Cocaine dependence, uncomplicated Assessment and Plan: continue topiramate --current dose 25mg BID. Dose can continue to be titrated to 50mg BID by the end of the week encouraged patient to explore [facility] in [place]--they are open 7 days per week, and can provider structure and support during the day risk reduction discussion regarding safer smoking --patient states, I just want to be done with it will have lung splitter provide stimulant clinic information to patient prior to discharge please reconsult if needed for any additional support Plan 11/27/24: Continue regime/plan. Encourage milieu involvement 11/28: Active on unit, observing laughing and joking with peers. Pt reports feeling good today; pt stated, I'm waiting to get into a program. I talked to my social work program coordinator . He reports sleeping well. denies SI/HI/VH/AH. denies any issues at this time. 11/29 though better than on admission, Patient reports that he is still with depression and would like a medication that might help; will start Wellbutrin XL 150mg 12/01: no changes 12/02: Increase Topiramate to 50 mg bid 12/04: Continue tx 12/05: Discharge 12/06. Reason for continued inpatient stay Substantial Risk for: rapid decompensation Time Spent With Patient Time: Total time managing care of this patient today ____ minutes.
[2024-12-05 15:48] VITALS: BMI 24.5
[2024-12-05 20:00] VITALS: BP 111/56; PULSE 87; TEMP 36.9; O2SAT 98
[2024-12-05] MEDS: traZODone HCL 50 MG TABLET PO (21:31)
[2024-12-06 08:00] VITALS: BP 103/60; PULSE 80; RESP 16; TEMP 36.4; O2SAT 97
[2024-12-06] MEDS: methADONE HCl 20 MG/2 ML ORAL.CONC 120 MG PO (08:12)
[2024-12-06] MEDS: Baclofen 10 MG TABLET PO (09:15)
[2024-12-06] MEDS: Topiramate 25 MG TABLET 50 MG PO (09:15)
[2024-12-06] MEDS: OLANZapine 5 MG TABLET PO (09:16)
[2024-12-06] MEDS: buPROPion HCl XL 150 MG TAB.ER.24H PO (09:16)
--- NOTE | 2024-12-06 10:35 | P.DS_ITS ---
DS: Providers Provider Date of Service: 12/06/24 Date of admission: 11/25/24 12:31 Date of discharge: 12/06/24 Primary care physician: Unknown Physician Admitting clinician: Marissa Anderson Attending physician on admission: Romeo Austin Consults: 11/25/24 17:35 Addiction Medicine Routine Consulting Provider: Addiction Covering Reason for consultation: pt requesting for heroin/crack/cocaine use Has provider been notified: Yes 11/26/24 17:31 Addiction Medicine Routine Consulting Provider: Addiction Covering Reason for consultation: new admit, wanting to stop cocaine Has provider been notified: No Attending physician on discharge: Romeo Austin Discharging clinician: Marissa Anderson DS: Diagnosis Discharge Diagnosis (1) Depression: Status: Acute (2) Opioid use disorder, severe, on maintenance therapy: Status: Acute (3) Cocaine dependence: Status: Acute DS: Medications Discharge Medications Home Medications: Previous Rx's ?Medication ?Instructions ?Recorded albuterol sulfate 90 mcg/actuation 2 puff inhalation Q4-6H PRN 12/05/24 aerosol inhaler shortness of breath or wheezing #8.5 grams bupropion HCl 150 mg 24 hr tablet, 150 mg PO DAILY #30 tabs 12/05/24 extended release methadone 10 mg/mL oral 120 mg (12 mL) PO DAILY #0 mL 12/05/24 concentrate (Methadose) olanzapine 5 mg tablet 5 mg PO BID #60 tabs 12/05/24 topiramate 25 mg tablet 50 mg (2 x 25 mg) PO BID #60 tabs 12/05/24 trazodone 50 mg tablet 50 mg PO BEDTIME MRX1 PRN Insomnia 12/05/24 #60 tabs Mental Status Exam Mental Status Exam Patient Appearance: Appropriate Patient Orientation: Person, Place, Time and Situation Level of Consciousness: Alert Patient Behavior: Talkative and Good Eye Contact Mood Description: Anxious and Apprehensive Affect Description: Anxious and Apprehensive Patient Cognition Impaired: No Ability to Follow Directions: Good Speech Pattern: Spontaneous Speech Memory Description: Episodic Impaired Hallucinations: None Delusions: Not Present Thought Process: Intact and Goal Oriented Thought Content: positive for Circumstantial, positive for Goal Oriented, positive for Perseveration and positive for Suicidal Ideation (denies) Depressive Symptoms: Thoughts of /Suicide (denies) and Low Self Esteem Judgement: Fair DS: Summary Hospital Course Hospital Course: Admission to adult psychiatry for exacerbation of recurrent major depression, cocaine use disorder, opiate use disorder. Medications were evaluated and adjusted. Pt was offered full milieu support during admission. Status at Discharge Functional status at discharge: independent ambulation Overall status at discharge: patient is progressing back to baseline Time Spent with Patient Time attestation: Total time managing care of this patient today ____ minutes. Time spent: Less than 30 minutes Discharge Plan Discharge Anticipated Discharge Date/Time: 12/06/24 12:00 Patient Disposition: Xfer Other Discharge Diagnosis: Depression Opiate Use Disorder Cocaine Use Disorder Referrals: Physician,Unknown J [Primary Care Provider] - 1 Week Discharge Medications: New trazodone 50 mg Tablet 50 mg PO BEDTIME MRX1 PRN (Reason: Insomnia) Qty: 60 0RF olanzapine 5 mg Tablet 5 mg PO BID Qty: 60 0RF topiramate 25 mg Tablet 50 mg PO BID Qty: 60 0RF methadone [Methadose] 10 mg/mL Concentrate 120 mg PO DAILY Qty: 0 0RF Rx Instructions: Partial Fill upon patient request. bupropion HCl 150 mg Tablet Extended Release 24 Hr 150 mg PO DAILY Qty: 30 0RF naloxone [Narcan] 4 mg/actuation spray,non-aerosol 4 mg intranasal Q2M PRN (Reason: opioid overdose) Qty: 2 0RF Rx Instructions: spray 1 dose into ONE nostril; alternate nostrils w each dose until help arrives Continued albuterol sulfate 90 mcg/actuation HFA aerosol inhaler 2 puff inhalation Q4-6H PRN (Reason: shortness of breath or wheezing) Qty: 8.5 0RF Discontinued methadone [Methadone Intensol] 10 mg/mL Concentrate 120 mg PO DAILY Discharge Orders: Discharge Order (Routine); Ordered 12/06/24 Ordered By: Marissa Anderson Diet: Advance to usual diet Activity on Discharge: As tolerated Stand Alone Forms: Patient Portal Discharge page, Community Support Print Language: Marshallese Care Plan Goals: Mood and Behavioral Stabilization Abstinence from Substances Health Concerns: Mood and Behavioral Stabilization Abstinence from Substances Plan of Treatment: Attend scheduled appointments Take medications as directed Assessment: No SI,HI,AH,VH Transfer to [facility] Discharge Date/Time: 12/06/24 11:19
== END 2024-12-06 11:19 | disposition other institution (70) | DRG 881 ==
LOC: HO.ED 11-22 06:54 → HO.PM5 11-25 12:40
PROVIDERS: Admitting Provider Clinical Nurse Specialist Psychiatric/Mental Health, Adult; Emergency Provider Internal Medicine; Visit Provider Clinical Nurse Specialist Psychiatric/Mental Health, Adult
DX: F32.A Depression, unspecified (principal); F11.20 Opioid dependence, uncomplicated; F14.20 Cocaine dependence, uncomplicated; R45.851 Suicidal ideations; F17.210 Nicotine dependence, cigarettes, uncomplicated; Z71.6 Tobacco abuse counseling; Z20.822 Contact with and (suspected) exposure to COVID-19; Z79.899 Other long term (current) drug therapy
CPT/HCPCS: 36415; 80053; 80061; 80143; 80179; 80307; 82607; 82746; 83036; 83735; 84439; 84443; 85025; 87635; 93005; 99285; S9485

== ENCOUNTER → 2024-11-22 00:26 | Outpatient (BNV) | payer OTHER, SELFPAY | PROVIDERS: Emergency Provider Internal Medicine; Visit Provider Internal Medicine | DX: F19.10 Other psychoactive substance abuse, uncomplicated (principal) | CPT/HCPCS: 93010 ==

== ENCOUNTER → 2024-11-25 12:31 | Outpatient (BNV) | payer OTHER, SELFPAY | PROVIDERS: Admitting Provider Clinical Nurse Specialist Psychiatric/Mental Health, Adult; Emergency Provider Internal Medicine; Visit Provider Clinical Nurse Specialist Psychiatric/Mental Health, Adult | DX: F32.2 Major depressive disorder, single episode, severe without psychotic features (principal); F11.20 Opioid dependence, uncomplicated; F14.20 Cocaine dependence, uncomplicated | CPT/HCPCS: 90792; 99231; 99232 ==

== ENCOUNTER → 2024-11-25 12:31 | Outpatient (BNV) | payer OTHER, SELFPAY | PROVIDERS: Admitting Provider Clinical Nurse Specialist Psychiatric/Mental Health, Adult; Emergency Provider Internal Medicine; Visit Provider Nurse Practitioner Psychiatric/Mental Health | DX: F11.20 Opioid dependence, uncomplicated (principal); F14.20 Cocaine dependence, uncomplicated | CPT/HCPCS: 99499 ==